=== PATIENT | female | born 1985 | race Caucasian/White ===

== ENCOUNTER → 2018-02-13 20:44 | Outpatient (CLI) | payer BC, SELFPAY | PROVIDERS: Visit Provider Nurse Practitioner Family | DX: J02.9 Acute pharyngitis, unspecified (principal) ==

== ENCOUNTER 2020-05-26 19:48 | Inpatient (IN) | payer OTHER, SELFPAY ==
[2020-05-26 19:58] VITALS: BP 136/86; PULSE 82; RESP 26; TEMP 37.2; O2SAT 100; BMI 26.9
[2020-05-26 20:06] VITALS: BMI 26.9
--- NOTE | 2020-05-26 20:08 | CT_ITS ---
PROCEDURE: CT ABDOMEN PELVIS W CON CLINICAL INDICATION: abd pain Periumbilical pain and vomiting COMPARISON: No exams were available for comparison TECHNIQUE: IV Contrast: 75ML Isovue 370 Oral Contrast None Axial images obtained with sagittal and coronal reformats. All CT scans at the facility use one or more dose reduction, viz: automated exposure control, ma/kV adjustment per patient size (including targeted exams where dose is matched to indication, i.e. head), or iterative reconstruction technique. FINDINGS: LOWER THORAX: No acute finding ABDOMEN & PELVIS: Fatty liver. No focal liver lesion is identified. The gallbladder, spleen, adrenal glands, pancreas, and kidneys have an unremarkable appearance. There is a retro aortic left renal vein as a normal variant. There is an appendicoliths at the base of the appendix with distension of the appendix measuring 9 mm in diameter and minimal haziness of the periappendiceal fat consistent with acute appendicitis. There is a small focus of gas within the tip of the appendix with a small air-fluid level.. No evidence of Genny appendiceal abscess or perforation. Bowel gas pattern is nonspecific with a few scattered small bowel air-fluid levels which could be due to mild ileus. The uterus is anteverted. No obvious pelvic mass or abnormal fluid collection. No acute bony findings. IMPRESSION: 1. The findings are compatible with acute appendicitis. Appendicoliths is present at the base of the appendix. There is a small air-fluid level in the tip of the appendix. 2. No evidence of periappendiceal abscess or free air. 3. Possible small bowel ileus Dictated by: Willie Crespo MD 05/27/2020 06:50 Willie Crespo MD in [place] 05/27/2020 06:50
[2020-05-26 20:09] LABS: Microscopic, Urine URINE MICROSCOPIC (MICROSCOPIC)
[2020-05-26 20:22] LABS: Appearance,Urine CLEAR (Clear); Bilirubin,Urine Negative (Negative); Blood, Urine Negative (Negative); Color,Urine YELLOW (Yellow); Glucose,Urine (UA) Negative (Negative); Ketones,Urine Negative (Negative); Leukocyte Esterase,Urine Negative (Negative); Nitrate,Urine Negative (Negative); Protein,Urine Negative (Negative); Urobilinogen,Urine 0.2 EU/dl (0.2)
--- NOTE | 2020-05-26 20:23 | HMH.EDNVD ---
ED Disposition Clinical Impression: Acute appendicitis Qualifiers: Acute appendicitis type: unspecified acute appendicitis type Qualified Code(s): K35.80 - Unspecified acute appendicitis Disposition: Admitted As Inpatient Condition on Discharge: Good Instructions: DI for Acute Abdominal Pain Referrals: Martínez Alexis MD [Primary Care Provider] - - Critical Care Critical Care Time: No Attestation: On 05/26/20, the high probability of a clinically significant, sudden or life threatening deterioration of the following system(s) required my full and direct attention, intervention and personal management. The time I documented below is in addition to time spent performing reported procedures but includes the following listed in this critical care notation. Medical Decision Making - Medical Records Medical records reviewed: Yes: I reviewed the patient's medical records. - [place] Inquiry Pt receiving controlled substance: No Vital Signs: 05/26/20 19:58 Temperature 99.0 F Temperature Source Oral Pulse Rate [Right] 82 Respiratory Rate 26 H Blood Pressure [Right Arm] 136/86 Blood Pressure Mean [Right Arm] 102 Blood Pressure Source [Right Arm] Automatic Cuff Blood Pressure Position [Right Arm] Supine 02 Sat by Pulse Oximetry 100 Oxygen Delivery Method Room Air - Lab Data Lab results reviewed: Yes: I reviewed the patient's lab results. Lab Results 05/26/20 19:50: Urine Color Yellow, Urine Appearance Clear, Urine pH 8.0, Ur Specific [place] 1.020, Urine Protein Negative, Urine Glucose (UA) Negative, Urine Ketones Negative, Urine Blood Negative, Urine Nitrate Negative, Urine Bilirubin Negative, Urine Urobilinogen 0.2, Ur Leukocyte Esterase Negative, Urine WBC Occasional, Ur Squamous Epith Cells 5-10, Urine Bacteria Trace 05/26/20 19:50: Urine HCG, Qual Negative 05/26/20 20:04: WBC 15.4 H, RBC 4.30, Hgb 14.2, Hct 42.2, MCV 98.0, MCH 32.9 H, MCHC 33.6, RDW 12.6, Plt Count 337, MPV 7.6, Neut % (Auto) 79.8, Lymph % (Auto) 13.7, [place] % (Auto) 5.1, Eos % (Auto) 1.1, Baso % (Auto) 0.3, Neut # (Auto) 12.3 H, Lymph # (Auto) 2.1, [place] # (Auto) 0.8, Eos # (Auto) 0.2, Baso # (Auto) 0.1, Total Counted 100, Neutrophils % (Manual) 80 H, Lymphocytes % (Manual) 19, Monocytes % (Manual) 1 L, Platelet Estimate Normal, RBC Morphology Not Reportable, Stomatocytes 1+, ESR 18 05/26/20 20:04: Sodium 141, Potassium 3.7, Chloride 103, Carbon Dioxide 28, Anion Gap 13.7, BUN 15, Creatinine 0.90, Estimated Creat Clear 95, Estimated GFR 71, Est GFR ( Amer) 86, Glucose 114 H, Calcium 10.1, Total Bilirubin 1.1, AST 65 H, ALT 157 H, Alkaline Phosphatase 71, C-Reactive Protein 4.0, Total Protein 8.3 H, Albumin 5.1 H, Globulin 3.2, Albumin/Globulin Ratio 1.6, Procalcitonin 0.068 05/26/20 20:04: Lactate 1.2 05/26/20 20:04: Amylase 63, Lipase 100 Result diagrams: 05/26/20 20:04 05/26/20 20:04 Orders (Tests/Meds): ED MEDICATIONS Generic Name Dose Route Start Last Admin Trade Name Freq PRN Reason Stop Dose Admin Sodium Chloride 1,000 mls @ 999 mls/hr 05/26/20 20:15 05/26/20 20:11 Sod Chlor 0.9% 1000ml Bag IV 05/26/20 21:15 999 mls/hr .Q1H1M LAM Administration Ampicillin Sodium/Sulbactam 100 mls @ 200 mls/hr 05/26/20 21:30 Sodium 3 gm/ Sodium Chloride IV 06/09/20 21:29 Q8H LAM Protocol Sodium Chloride 8 ml 05/26/20 20:07 Sodium Chloride 0.9% 10ml Vial IV 06/25/20 20:06 NEEDED PRN dilute pepcid Discontinued Medications Generic Name Dose Route Start Last Admin Trade Name Freq PRN Reason Stop Dose Admin Famotidine 20 mg 05/26/20 20:07 05/26/20 20:11 Famotidine 20mg/2ml Vial IV 05/26/20 20:08 20 mg ONCE ONE Administration Hydromorphone HCl 1 mg 05/26/20 20:20 05/26/20 20:26 Hydromorphone 2mg/Ml Syringe IV 05/26/20 20:21 1 mg ONCE ONE Administration Iopamidol 75 ml 05/26/20 21:03 05/26/20 21:09 Iopamidol-370 (76%);100ml Bottle IV 05/26/20 21:04 75 ml ONCE ONE
[2020-05-26 20:27] LABS: Urine Pregnancy, HCG Qual. Negative (Negative)
[2020-05-26 20:28] LABS: Basophils # 0.1 K/mm3 (0-0.2); Basophils % 0.3 % (0.1-2.0); Chloride 103 mmol/L (98-107); Eosinophils # 0.2 K/mm3 (0.0-0.4); Eosinophils % 1.1 % (0.1-12.0); Hematocrit 42.2 % (37.0-47.0); Hemoglobin 14.2 g/dL (12.2-16.2); Lymphocytes # 2.1 K/mm3 (0.7-4.5); Lymphocytes % 13.7 % (10-50); Mean Corpuscular HGB Conc 33.6 g/dL (31.8-35.4); Mean Corpuscular Hemoglobin 32.9 pg (27.0-31.2); Mean Platelet Volume 7.6 fl (7.4-10.4); Monocytes # 0.8 K/mm3 (0.1-1.0); Monocytes % 5.1 % (1.7-9.3); Neutrophils # 12.3 K/mm3 (1.8-7.8); Neutrophils % 79.8 % (37.0-80.0); Platelet Count 337 K/mm3 (142-424); Red Cell Distribution Width 12.6 % (11.5-17.5); White Blood Count 15.4 K/mm3 (4.8-10.8)
[2020-05-26 20:28] LABS: Bacteria,Urine Trace /lpf; WBC,Urine Occasional #/hpf (0-3)
[2020-05-26 20:29] LABS: Potassium 3.7 mmoL/L (3.5-5.1); Sodium 141 mmol/L (136-145)
[2020-05-26 20:30] VITALS: BP 111/66; PULSE 76; O2SAT 94
[2020-05-26 20:31] LABS: Alanine Aminotransferase 157 U/L (12-78); Aspartate Amino Transferase 65 U/L (14-36); Blood Urea Nitrogen 15 mg/dl (7-17); Creatinine Clearance Estimated 95 mL/min (50-200); Estimated Glomerular Filt Rate 71 ml/min (>60); GFR (African American) 86 ML/MIN (>60)
[2020-05-26 20:32] LABS: Albumin Level 5.1 g/dl (3.5-5.0); Albumin/Globulin Ratio 1.6 (1.1-1.8); Alkaline Phosphatase 71 U/L (38-126); Anion Gap 13.7 mEq/L (5-15); Bilirubin,Total 1.1 mg/dl (0.2-1.3); Calcium 10.1 mg/dl (8.4-10.2); Carbon Dioxide 28 mmol/L (22.0-30.0); Globulin 3.2 g/dL (1.3-3.2); Glucose 114 mg/dl (74-100); Lactic Acid 1.2 mmol/L (0.7-2.1); Total Protein,Serum 8.3 g/dl (6.3-8.2)
[2020-05-26 20:33] LABS: MANUAL DIFFERENTIAL MANUAL DIFFERENTIAL (MANUAL DIFF)
[2020-05-26 20:55] LABS: Erythrocyte Sedimentation Rate 18 mm/hr (0-20)
[2020-05-26 20:58] VITALS: BP 115/65; PULSE 70; O2SAT 97
[2020-05-26 21:00] VITALS: BP 108/64; PULSE 65; O2SAT 100
[2020-05-26 21:00] LABS: Procalcitonin 0.068 ng/mL (0.0-2.0)
[2020-05-26 21:02] LABS: Amylase 63 U/L (30-110)
[2020-05-26 21:03] LABS: Lipase 100 U/L (23-300)
[2020-05-26 21:12] LABS: Lymphocytes % 19 % (10-50); Monocytes % 1 % (2-9); Neutrophils % 80 % (42-76); Total Cells Counted 100
[2020-05-26 21:13] LABS: Platelet Estimate Normal; Stomatocytes 1+
--- NOTE | 2020-05-26 21:28 | PC.NURSE ---
Dr Anguiano spoke with Dr Vega for admit
[2020-05-26 22:09] LABS: Coronavirus 19 IgG Antibody Negative (Negative); Coronavirus 19 IgM Antibody Negative (Negative)
[2020-05-27] VITALS (27 sets, daily range): BP systolic 91–138; BP diastolic 50–81; PULSE 48–93; RESP 11–20; TEMP 36.6–42.7; O2SAT 92–100
--- NOTE | 2020-05-27 04:33 | PC.NURSE ---
Pt has slept in intervals this shift, BLT lung sounds CTA, Pt A&O x4, IV infusing NS @100mls/hr, Bowels sounds present in all 4 quadrants, Abdomen tender and firm to the touch. Pt NPO since midnight. Pt medicated for pain per MAR, Pt denies SOA, headache, or vomiting
--- NOTE | 2020-05-27 06:27 | HMH.GSHP ---
HPI HPI: This is a 35-year-old female who presented to the emergency department overnight with increasing abdominal pain. She had radiographic evidence of acute appendicitis and was admitted to the surgical service for evaluation and management. Please see HPI forwarded from emergency department evaluation below. From ED evaluation: Nausea/Vomiting/Diarrhea HPI - General Chief complaint: Abdominal Pain Stated complaint: stomach pain Time Seen by Provider: 05/26/20 20:00 Mode of Arrival: Ambulatory Source of Information: Patient, Medical Record Limitations: No Limitations Description of Symptoms (Recalled from ER Triage Doc. by RN): Pt c/o severe abd burning at the umbilicus, does not get worse with palpation, denied diarrhea, states she did vomit from the pain, pt states she had a normal BM today. Pt took antacids around 1700 this evening with no relief. - History of Present Illness HPI Narrative: progressive abd pain since 1500 with nausea MD complaint: nausea, abdominal pain Onset (ago): hour(s) Associated Abdominal Pain: Yes Location of pain: diffuse Consistency: constant Associated symptoms: denies other symptoms [facility] History Medical History: Denies:: Diabetes Mellitus Type 1, Diabetes Mellitus Type 2 *Have you ever received a pneumonia vaccine?: No *Have you received a flu vaccine this season?: No Other Surgeries: Yes: Other Amputation: No Fractures: No - *Social History Last grade of school completed: Some college Smoking Status: Never smoker Alcohol Intake: never Alcohol Intake Frequency:: holidays/special occasions only Substance Use Type: denies use *Occupational Status:: employed Housing: house Household Members: family *Travel in the last 8 weeks: None Family Hx:: Diabetes Review of Systems - Constitutional Denies chills - Eyes Denies change in vision - ENT Denies change in voice, Denies difficulty swallowing - *Cardiovascular Denies chest pain - *Respiratory Denies cough - *Gastrointestinal Reports abdominal pain, Reports nausea - *Genitourinary Denies blood in urine - *Musculoskeletal Denies abnormal walking - Integumentary/Breasts Denies new lesions - *Neurologic Denies abnormal speech, Denies seizure-like activity - Psychiatric Denies anxiety - Endocrine Denies cold intolerance - Hematologic/Lymphatic Denies easy bleeding - Allergic/Immunologic Denies wheezing Meds Home Medications Medication Instructions Recorded Confirmed Type No Known Home Medications 05/26/20 05/26/20 History Allergies Allergy/AdvReac Type Severity Reaction Status Date / Time No Known Allergies Allergy Verified 08/12/18 11:29 Exam Vital signs and Labs for Last 24 Hours: Temp Pulse Resp BP Pulse Ox 99.6 F 87 18 113/65 97 05/27/20 04:00 05/27/20 04:00 05/27/20 04:00 05/27/20 04:00 05/27/20 04:00 Laboratory Results - last 24 hr 05/26/20 19:50: Urine Color Yellow, Urine Appearance Clear, Urine pH 8.0, Ur Specific [place] 1.020, Urine Protein Negative, Urine Glucose (UA) Negative, Urine Ketones Negative, Urine Blood Negative, Urine Nitrate Negative, Urine Bilirubin Negative, Urine Urobilinogen 0.2, Ur Leukocyte Esterase Negative, Urine WBC Occasional, Ur Squamous Epith Cells 5-10, Urine Bacteria Trace 05/26/20 19:50: Urine HCG, Qual Negative 05/26/20 20:04: WBC 15.4 H, RBC 4.30, Hgb 14.2, Hct 42.2, MCV 98.0, MCH 32.9 H, MCHC 33.6, RDW 12.6, Plt Count 337, MPV 7.6, Neut % (Auto) 79.8, Lymph % (Auto) 13.7, [place] % (Auto) 5.1, Eos % (Auto) 1.1, Baso % (Auto) 0.3, Neut # (Auto) 12.3 H, Lymph # (Auto) 2.1, [place] # (Auto) 0.8, Eos # (Auto) 0.2, Baso # (Auto) 0.1, Total Counted 100, Neutrophils % (Manual) 80 H, Lymphocytes % (Manual) 19, Monocytes % (Manual) 1 L, Platelet Estimate Normal, RBC Morphology Not Reportable, Stomatocytes 1+, ESR 18 05/26/20 20:04: Sodium 141, Potassium 3.7, Chloride 103, Carbon Dioxide 28, Anion Gap 13.7, BUN 15, Creatinine 0.90, Es
--- NOTE | 2020-05-27 06:52 | HMH.ANESCL ---
[facility] Anesthesia Checklist - Patient Identification Patient Identification: Arm Band - Structural Data Admitted From: Inpatient Planned Operative Procedure/s: laparoscopic appendectomy Consent for Planned Operative Procedure(s) Verified: Yes Verified Documents: Surgical Consent, History and Physical - NPO Status Verified Time NPO: 00:00 - Additional verifications Anesthesia Reactions: No - Airway Assessment C-Spine Mobility Assessed: Yes (mp2) TMJ Mobility Assessed: Yes Dentition: Good Dentition - Neurological Assessment Level of Consciousness: Awake, Alert - Anesthesia Plan Anesthesia Risk discussed: Yes Anesthesia Plan: Verified ASA Class: II (e) Anesthesia Type: General [facility] History I have reviewed the patient's past medical history: Yes Medical History: Denies:: Diabetes Mellitus Type 1, Diabetes Mellitus Type 2 *Have you ever received a pneumonia vaccine?: No *Have you received a flu vaccine this season?: No Anesthesia experience/problems:: nac Other Surgeries: Yes: Other Amputation: No Fractures: No - *Social History Last grade of school completed: Some college Smoking Status: Never smoker Alcohol Intake: never Alcohol Intake Frequency:: holidays/special occasions only Substance Use Type: denies use *Occupational Status:: employed Housing: house Household Members: family *Travel in the last 8 weeks: None Family Hx:: Diabetes
[2020-05-27 06:55] LABS: Eosinophils # 0.1 K/mm3 (0.0-0.4); Neutrophils % 82.9 % (37.0-80.0)
[2020-05-27 06:58] LABS: Blood Urea Nitrogen 10 mg/dl (7-17); Carbon Dioxide 25 mmol/L (22.0-30.0); Chloride 107 mmol/L (98-107); Creatinine Clearance Estimated 95 mL/min (50-200); Estimated Glomerular Filt Rate 71 ml/min (>60); GFR (African American) 86 ML/MIN (>60); Glucose 134 mg/dl (74-100); Sodium 138 mmol/L (136-145)
[2020-05-27 07:06] LABS: Calcium 8.8 mg/dl (8.4-10.2)
--- NOTE | 2020-05-27 07:10 | PC.NURSE ---
REPORT RECEIVED FROM Vale ORNELAS RN. PT OFF FLOOR AT THIS TIME FOR SX.
[2020-05-27 07:14] LABS: Basophils % 0.1 % (0.1-2.0); Eosinophils % 0.5 % (0.1-12.0); Hematocrit 37.2 % (37.0-47.0); Lymphocytes # 1.4 K/mm3 (0.7-4.5); Lymphocytes % 10.6 % (10-50); Mean Corpuscular HGB Conc 33.4 g/dL (31.8-35.4); Mean Corpuscular Hemoglobin 33.4 pg (27.0-31.2); Mean Platelet Volume 8.2 fl (7.4-10.4); Monocytes # 0.8 K/mm3 (0.1-1.0); Monocytes % 5.8 % (1.7-9.3); Neutrophils # 10.8 K/mm3 (1.8-7.8); Platelet Count 259 K/mm3 (142-424); Red Blood Count 3.72 M/mm3 (4.20-5.40); Red Cell Distribution Width 12.7 % (11.5-17.5); White Blood Count 13.1 K/mm3 (4.8-10.8)
[2020-05-27 07:15] LABS: Hemoglobin 12.4 g/dL (12.2-16.2)
--- NOTE | 2020-05-27 07:37 | P.CONPHA_ITS ---
[facility] Pharmacy VTE Monitoring - Patient Demographics Admission date: 05/26/20 Report Date: 05/27/20 Time: 07:37 Allergies/Adverse Reactions: Patient Allergies No Known Allergies Allergy (Verified 08/12/18 11:29) Height: 1.6 m Weight: 68.946 kg Patient Problems: Current Active Problems Acute appendicitis (Acute) - VTE Risk Labs: VTE Related Lab Results Hgb 12.4 g/dL (12.2-16.2) D 05/27/20 06:43 Hct 37.2 % (37.0-47.0) 05/27/20 06:43 Plt Count 259 K/mm3 (142-424) 05/27/20 06:43 BUN 10 mg/dl (7-17) D 05/27/20 06:43 Creatinine 0.90 mg/dl (0.52-1.04) 05/27/20 06:43 Estimated Creat Clear 95 mL/min (50-200) 05/27/20 06:43 VTE Score: 0 VTE Risk Level: Very Low Risk - Prophylaxis VTE Prophylaxis Ordered?: Yes Types of VTE Prophylaxis: TEDS Knee High Location of Applied Device: Bilateral Lower Extremeties
--- NOTE | 2020-05-27 08:09 | P.OP_ITS ---
Date of procedure: 05/27/20 Pre-op Diagnosis:: Appendicitis Post-op Diagnosis:: Suppurative appendicitis Procedure performed:: Laparoscopic appendectomy Surgeon:: Darryn Zhao MD Life Science Technical Officer(s):: Edna Anesthesia: GETBandar Estimated blood loss (mL): 10 Operative findings:: Suppurative appendicitis No definitive perforation Operative note:: After informed consent was obtained the patient was taken to the operating room and placed in the supine position. General anesthesia was induced and her abdomen was prepped and draped in a sterile fashion. After infiltration local anesthetic an infraumbilical incision was made. A Veress needle was placed in position. The 12 mm optical trocar was placed in position. Under direct visualization a 5 mm trocar was placed in the suprapubic position and an additional 5 mm trocar was placed in the left lower quadrant. The right lower quadrant was carefully evaluated. The appendix was severely inflamed with significant suppurative changes noted. No obvious perforation was seen. The mesoappendix was taken with harmonic ferdinand as the appendix was elevated. The appendiceal base was then stapled/transected utilizing the Endopath 45 device. Please note that the initial load/device did not fire appropriately and a second device was utilized. No obvious sign of injury or bleeding noted. The staple margin appeared normal. The appendix was placed in a retrieval bag and removed through the infraumbilical trocar site. The right lower quadrant was thoroughly irrigated. No obvious abscess noted. The fascia at the infraumbilical trocar site was reapproximated with a combination of the neoclose device and interrupted 0 Ethibond. All wounds were irrigated as the trocars were removed. Skin was reapproximated with interrupted 4-0 Monocryl. Dressings were applied and the patient was transferred to recovery in stable condition. Condition: stable Disposition: PACU Complications:: No immediate complications. Please note that the initial Endopath 45 device did not fire and a second device was utilized.
--- NOTE | 2020-05-27 08:23 | HMH.ANESI ---
[facility] Anesthesia Record Part I Intake, IV Amount: 500 Estimated blood loss (mL): 50 Urine output (mL): 0 Blood Pressure: 138/73 SaO2: 97 Pulse Rate: 93 Respiratory Rate: 11 Temperature: 98 F Patient is:: Drowsy Stable to PACU at:: 08:19
--- NOTE | 2020-05-27 09:00 | PC.NURSE ---
REPORT RECEIVED FROM [facility]KEON RN [facility]
--- NOTE | 2020-05-27 09:10 | PC.NURSE ---
PT ARRIVED TO ROOM 280 AT THIS TIME.
--- NOTE | 2020-05-27 09:14 | PC.NURSE ---
PT ASSESSED AT THIS TIME. BILATERAL LUNG SOUNDS CLEAR. NO EDEMA NOTED. PT O2 STAT 91% ON RA, 2 L NC APPLIED AT THIS TIME. SPO2 95% NOW. PT AWAKE AND ALERT BUT SLEEPY. PT DENIES ANY PAIN AT THIS TIME JUST STATES THAT IT HURTS TO TAKE A DEEP BREATH. RESPIRATIONS EVEN AND UNLABORED. INCISIONS X3 LAP SITES WITH TELFA/ TEGADERM DRESSING WITH STERI STRIPS, C/D/I NO DRAINAGE NOTED. AT BEDSIDE. CALL LIGHT WITHIN REACH. WILL CONTINUE TO OBSERVE.
--- NOTE | 2020-05-27 13:41 | PC.NURSE ---
dr. rodrigez at bedside checking on pt. pt asleep. no new orders. will continue to observe.
[2020-05-27 13:51] LABS: Microscopic,Cath URINE MICROSCOPIC (MICROSCOPIC)
[2020-05-27 14:01] LABS: Appearance,Urine/Cath CLEAR (Clear); Bilirubin,Cath Negative (Negative); Blood, Urine/Cath Negative (Negative); Color,Urine/Cath YELLOW (Yellow); Glucose,Urine/Cath (UA) Negative (Negative); Ketones,Urine/Cath Negative (Negative); Leukocyte Esterase,Cath Negative (Negative); Nitrate,Cath Negative (Negative); Protein,Urine/Cath Negative (Negative); Specific Gravity, Urine/Cath 1.025 (1.005-1.030); Urobilinogen,Cath 0.2 EU/dl (0.2)
[2020-05-27 14:09] LABS: Squamous Epithelial Ur./Cath Occasional #/hpf (0-5)
--- NOTE | 2020-05-27 16:30 | PC.NURSE ---
PT REASSESSED AT THIS TIME. BILATERAL LUNG SOUNDS CLEAR. NO EDEMA NOTED. PT STATES PAIN 5/10 ON VERBAL SCALE IN ABD WITH MOVEMENT BUT CURRENTLY DENIES WANT FOR PAIN MEDICATION. X3 LAP SITES WITH INCISIONAL DRESSING TELFA/ TEGADERM AND STERI STRIPS C/D/I. IV IN LAC INFUSING WELL. WILL CONTINUE TO OBSERVE.
--- NOTE | 2020-05-27 16:50 | PC.NURSE ---
DR. LUGO AT BEDSIDE. NO NEW ORDERS AT THIS TIME.
--- NOTE | 2020-05-27 18:10 | PC.NURSE ---
PT UP AMBULATING IN ROOM. PT TOLERATING WELL.
--- NOTE | 2020-05-27 19:39 | PC.NURSE ---
REPORT GIVEN TO Vale LOJA RN.
--- NOTE | 2020-05-27 21:16 | PC.NURSE ---
ASSISTED PT UP TO BATHROOM AND SHE VOIDED 300ML CLEAR YELLOW URINE,RETURNED TO BED AND JOSIE RECONNECTED.MEDICATED PT WITH DILAUDID 1MG IVP FOR PAIN OF 9 ON SCALE OF 0-10.PT REPORTED SHE GOT A LITTLE NAUSEATED WITH GOING TO BATHROOM BUT DECLINED ANYTHING FOR NAUSEA
[2020-05-28] VITALS (9 sets, daily range): BP systolic 89–131; BP diastolic 50–81; PULSE 47–85; RESP 17–20; TEMP 36.6–37.1; O2SAT 94–99
--- NOTE | 2020-05-28 01:34 | PC.NURSE ---
UPON ENTERING PT ROOM SHE WAS ASLEEP,EASILY AROUSED.V/S OBTAINED AND WAS 102/58,P-62,R-18,T-98.8,96% RA.ASSISTED PT TO BATHROOM WHERE SHE VOIDED 300ML OF CLEAR YELLOW URINE.PT CRYING IN PAIN.HELPED HER RETURN TO BED,PT DENIES PASSING ANY FLATUS ,ABD.DISTENDED.BOWEL SOUNDS HYPERACTIVE.LUNGS CLEAR,PT ABLE TO ACHIEVE 1250 ML ON INCENTIVE SPIROMETER.MEDICATED WITH DILAUDID 1MG IVP,WILL CONTINUE TO MONITOR
--- NOTE | 2020-05-28 04:06 | PC.NURSE ---
PT HAD BEEN SLEEPING,IV PUMP WOKE HER ,ANOTHER BAG NS HUNG AND HER ZOSYN WAS HUNG.PT REPORTS HER PAIN IS ABOUT A 3 ON SCALE OF 0-10 AND THAT IS WITH MOVEMENT.ABD.NOT DISTENDED BEFORE,BOWEL SOUNDS NORMAL X 4 QUADS,NO DRAINAGE TO 3 LAP SITES.AFIBRILE,WILL CONTINUE TO MONITOR
--- NOTE | 2020-05-28 06:23 | PC.NURSE ---
MEDICATED WITH NORCO 10MG PO FOR PAIN OF 6 ON SCALE OF 0-10.PT ATE SOME VANILLA PUDDING PRIOR TO TAKING MEDICINE.
--- NOTE | 2020-05-28 06:31 | PC.NURSE ---
LAB HERE TO DRAW BLOOD
--- NOTE | 2020-05-28 06:46 | PC.NURSE ---
MAKING AM ROUNDS
[2020-05-28 06:49] LABS: Basophils % 0.1 % (0.1-2.0); Eosinophils # 0.1 K/mm3 (0.0-0.4); Hematocrit 33.7 % (37.0-47.0); Lymphocytes # 2.3 K/mm3 (0.7-4.5); Lymphocytes % 23.6 % (10-50); Mean Corpuscular HGB Conc 32.6 g/dL (31.8-35.4); Mean Corpuscular Hemoglobin 32.9 pg (27.0-31.2); Mean Corpuscular Volume 101.1 fl (81-99); Mean Platelet Volume 9.4 fl (7.4-10.4); Monocytes # 0.6 K/mm3 (0.1-1.0); Monocytes % 5.8 % (1.7-9.3); Neutrophils # 6.7 K/mm3 (1.8-7.8); Neutrophils % 69.5 % (37.0-80.0); Platelet Count 225 K/mm3 (142-424); Red Blood Count 3.33 M/mm3 (4.20-5.40); Red Cell Distribution Width 12.6 % (11.5-17.5); White Blood Count 9.7 K/mm3 (4.8-10.8)
[2020-05-28 06:56] LABS: Anion Gap 8.5 mEq/L (5-15); Blood Urea Nitrogen 4 mg/dl (7-17); Calcium 8.2 mg/dl (8.4-10.2); Carbon Dioxide 25 mmol/L (22.0-30.0); Chloride 108 mmol/L (98-107); Creatinine Clearance Estimated 107 mL/min (50-200); Estimated Glomerular Filt Rate 82 ml/min (>60); GFR (African American) 99 ML/MIN (>60); Glucose 114 mg/dl (74-100); Potassium 3.5 mmoL/L (3.5-5.1); Sodium 138 mmol/L (136-145)
[2020-05-28 06:59] LABS: Hemoglobin 11.1 g/dL (12.2-16.2)
--- NOTE | 2020-05-28 06:59 | P.PN_ITS ---
Subjective Patient reports: still having pain, no bowel movement Progress Note: A&P (1) Suppurative appendicitis Status: Acute Assessment and plan: Overall, doing fairly well status post laparoscopic appendectomy. She continues to have fairly significant pain and states that she just is not moving that well right now . Follow-up morning labs Continue antibiotics secondary to suppurative nature of appendicitis Serial abdominal exams Exam Vital signs and Labs for Last 24 Hours: Temp Pulse Resp BP Pulse Ox 98.1 F 63 18 93/63 L 96 05/28/20 04:00 05/28/20 04:00 05/28/20 04:00 05/28/20 04:00 05/28/20 04:00 Laboratory Results - last 24 hr 05/27/20 06:43: WBC 13.1 H, RBC 3.72 L, Hgb 12.4 D, Hct 37.2, MCV 100.0 H, MCH 33.4 H, MCHC 33.4, RDW 12.7, Plt Count 259, MPV 8.2, Neut % (Auto) 82.9 H, Lymph % (Auto) 10.6, [place] % (Auto) 5.8, Eos % (Auto) 0.5, Baso % (Auto) 0.1, Neut # (Auto) 10.8 H, Lymph # (Auto) 1.4, [place] # (Auto) 0.8, Eos # (Auto) 0.1, Baso # (Auto) 0.0 05/27/20 06:43: Sodium 138, Potassium 4.0, Chloride 107, Carbon Dioxide 25, Anion Gap 10.0, BUN 10 D, Creatinine 0.90, Estimated Creat Clear 95, Estimated GFR 71, Est GFR ( Amer) 86, Glucose 134 H, Calcium 8.8 D 05/27/20 07:10: Urine Color Yellow, Urine Appearance Clear, Urine pH 6.0, Ur Specific [place] 1.025, Urine Protein Negative, Urine Glucose (UA) Negative, Urine Ketones Negative, Urine Blood Negative, Urine Nitrate Negative, Urine Bilirubin Negative, Urine Urobilinogen 0.2, Ur Leukocyte Esterase Negative, Urine RBC None, Urine WBC 3-5, Ur Squamous Epith Cells Occasional, Urine Bacteria None 05/28/20 06:35: WBC 9.7 D, RBC 3.33 L, Hgb 11.1 L D, Hct 33.7 L, MCV 101.1 H, MCH 32.9 H, MCHC 32.6, RDW 12.6, Plt Count 225, MPV 9.4, Neut % (Auto) 69.5, Lymph % (Auto) 23.6, [place] % (Auto) 5.8, Eos % (Auto) 1.0, Baso % (Auto) 0.1, Neut # (Auto) 6.7, Lymph # (Auto) 2.3, [place] # (Auto) 0.6, Eos # (Auto) 0.1, Baso # (Auto) 0.0 05/28/20 06:35: Sodium 138, Potassium 3.5, Chloride 108 H, Carbon Dioxide 25, Anion Gap 8.5, BUN 4 L D, Creatinine 0.80, Estimated Creat Clear 107, Estimated GFR 82, Est GFR ( Amer) 99, Glucose 114 H, Calcium 8.2 L I & O for Last 24 hours: Intake & Output 05/25/20 05/26/20 05/27/20 05/28/20 11:59 11:59 11:59 11:59 Intake Total 1500 / 1500 1220 / 1220 Output Total 1300 / 1300 Balance 1500 / 1500 -80 / -80 Weight 152 lb - Constitutional no acute distress - *Routine Respiratory Exam Absent: respiratory distress - *Routine Cardiovascular Exam Present: RRR - *Routine Abdominal Exam Present: soft
--- NOTE | 2020-05-28 07:07 | PC.NURSE ---
REPORT GIVEN TO KAITLINRN
--- NOTE | 2020-05-28 07:21 | P.PN_ITS ---
[facility] Anesthesia Record Part II Discharge Time: 08:59 Destination: Surgical Day Care (OP Surgery) PACU nurse assessment reviewed?: Yes Patient Condition:: Good Anesthesia Complications:: None Swallowing reflex intact?: Yes Cyanosis?: No Blood Pressure: 131/81 Pulse Rate: 85 Temperature: 98.2 F Mental Status: Alert & Oriented, Short Term Memory Loss Pain level:: 0 Nausea and/or vomitting:: None Intake, IV Amount: 1,000
--- NOTE | 2020-05-28 16:11 | PC.NURSE ---
1605 RN reassessment completed at this time, no acute changes noted from AM assessment. Pt has received PRN pain medication as well as scheduled IV toradol this shift for c/o RUQ pain, with good relief. Pt has dozed at intervals this shift. Abd soft and mildly tender with BS active in all quads, pt reports passing little gas, no BM this shift. Pt reports voiding without difficulty. Lung sounds CTA. 18 G LAC patent and infusing without difficulty. Pt is tolerating full liquid tray well but reports decreased appetite. Warm blanket applied to abdomen for comfort and pillow provided to splint area. Pt lying in bed talking with visitor, no needs voiced. Will continue to monitor.
--- NOTE | 2020-05-28 17:44 | PC.NURSE ---
Pt ambulating in room, tolerating activity well.
[2020-05-29] VITALS (8 sets, daily range): BP systolic 108–144; BP diastolic 61–80; PULSE 40–60; RESP 16–18; TEMP 36.7–37.3; O2SAT 90–100; BMI 30.4
--- NOTE | 2020-05-29 05:38 | PC.NURSE ---
pt has rested fairly well throughout shift, lungs remain clear to auscultate, heart rate regular, dry cough noted, bs x 4 quads, abdomen remains soft but tender, abdominal distention noted, lap site dressings to abdomen remain clean dry and intact, pt is passing flatus, no bm this shift, pt stated she was lightheaded and seeing spots occasionally at beginning of shift at that time heart rate was noted to be 52 with murmur auscultated pt denied chest pain or SOB with that episode of lightheadedness and bp and temperature were stable, light headedness and blurred vision is currently resolved and vss, pain has been managed with prn pain medication and scheduled torodol. pt states she has no appetite and does not want a soft breakfast tray ordered she states she would like to stay on liquid diet at this time, no acute distress noted at this time pt is resting comfortably with eyes closed will continue to monitor at this time
[2020-05-29 06:04] LABS: Basophils % 0.2 % (0.1-2.0); Eosinophils # 0.2 K/mm3 (0.0-0.4); Eosinophils % 2.8 % (0.1-12.0); Hematocrit 34.4 % (37.0-47.0); Hemoglobin 11.1 g/dL (12.2-16.2); Lymphocytes # 2.5 K/mm3 (0.7-4.5); Lymphocytes % 31.2 % (10-50); Mean Corpuscular HGB Conc 32.4 g/dL (31.8-35.4); Mean Platelet Volume 8.5 fl (7.4-10.4); Monocytes # 0.5 K/mm3 (0.1-1.0); Monocytes % 6.2 % (1.7-9.3); Neutrophils # 4.9 K/mm3 (1.8-7.8); Neutrophils % 59.6 % (37.0-80.0); Platelet Count 228 K/mm3 (142-424); Red Blood Count 3.37 M/mm3 (4.20-5.40); Red Cell Distribution Width 12.7 % (11.5-17.5); White Blood Count 8.1 K/mm3 (4.8-10.8)
--- NOTE | 2020-05-29 07:15 | PC.NURSE ---
REPORT RECEIVED FROM Yamil FORD RN
--- NOTE | 2020-05-29 08:00 | PC.NURSE ---
PT ASSESSED AT THIS TIME. BILATERAL LUNG SOUNDS CLEAR. BOWEL SOUNDS PRESENT X4 QUADS. PT STATES SHE HAS PASSED SOME GAS. STATES THAT SHE FEELS A LITTLE LIGHT HEADED BUT COULD BE R/T HER JUST SITTING UP IN THE BED. HEART RATE GILDARDO. X3 LAP SITES C/D/I. PT STATES ABD TENDER. RATES PAIN 7/10 ON VERBAL SCALE AND MEDICATED PER EMAR AT THIS TIME. WILL CONTINUE TO OBSERVE.
--- NOTE | 2020-05-29 08:45 | PC.NURSE ---
DR. LUGO AT BEDSIDE AT THIS TIME. ORDERS TO DECREASE NARCOTIC USE AND ENCOURAGE PT TO AMBULATE OUT IN HALLWAY.
--- NOTE | 2020-05-29 08:53 | P.PN_ITS ---
Subjective Patient reports: still having pain, nausea Progress Note: A&P (1) Suppurative appendicitis Status: Acute Assessment and plan: She remains afebrile. Her white blood cell count is normal. She has no sign of postoperative complication; however, she remains quite nauseous and continues to have fairly significant postoperative pain. Encourage increased ambulation Continue Toradol and minimize narcotics as much as possible Continue Zofran as needed Continue Zosyn for now secondary to suppurative nature of appendicitis Exam Vital signs and Labs for Last 24 Hours: Temp Pulse Resp BP Pulse Ox 98.4 F 58 L 16 111/64 95 05/29/20 07:47 05/29/20 07:47 05/29/20 07:47 05/29/20 07:47 05/29/20 07:47 Laboratory Results - last 24 hr 05/29/20 05:35: WBC 8.1, RBC 3.37 L, Hgb 11.1 L, Hct 34.4 L, MCV 102.0 H, MCH 33.0 H, MCHC 32.4, RDW 12.7, Plt Count 228, MPV 8.5, Neut % (Auto) 59.6, Lymph % (Auto) 31.2, Bradford % (Auto) 6.2, Eos % (Auto) 2.8, Baso % (Auto) 0.2, Neut # (Auto) 4.9, Lymph # (Auto) 2.5, Bradford # (Auto) 0.5, Eos # (Auto) 0.2, Baso # (Auto) 0.0 I & O for Last 24 hours: Intake & Output 05/26/20 05/27/20 05/28/20 05/29/20 11:59 11:59 11:59 11:59 Intake Total 1500 / 1500 2220 / 2220 Output Total 1300 / 1800 1050 / 1050 Balance 1500 / 1500 920 / 420 -1050 / -1050 Weight 152 lb 172 lb 3 oz - Constitutional no acute distress - *Routine Respiratory Exam Present: respiratory distress - *Routine Cardiovascular Exam Present: RRR - *Routine Abdominal Exam Present: soft Comments: Incision(s) clean, dry, and intact. No erythema.
--- NOTE | 2020-05-29 12:03 | PC.NURSE ---
DR. LUGO PAGED AT THIS TIME.
--- NOTE | 2020-05-29 12:06 | PC.NURSE ---
DR. LUGO RETURNED PAGED. ORDERED 12 LEAD EKG
--- NOTE | 2020-05-29 12:23 | ECG_ITS ---
APPROVED REPORT Exam: Resting ECG HR:44 bpm ECG Measurements Heart Rate 44 AXES WV 202 P 40 QRSd 78 QRS 37 QT 444 T 18 QTc 379 Conclusion Marked sinus bradycardia Low voltage QRS Cannot rule out Anteroseptal infarct, age undetermined Abnormal ECG Electronically signed by : Garrett Armando, 05/29/2020 21:04:48
--- NOTE | 2020-05-29 12:38 | PC.NURSE ---
EKG READ BY ER DOC DR. THOMAS STATES SINUS GILDARDO. DR. LUGO OK WITH SINUS GILDARDO.
--- NOTE | 2020-05-29 14:15 | PC.NURSE ---
DR. LUGO CALLED AT THIS TIME AND EXPRESSED CONCERNS ABOUT BRADYCARDIA, DIZZINESS, SWELLING OF HANDS, AND TIBIAL TENDERNESS. STATES FOR CONSULT WITH PCP.
--- NOTE | 2020-05-29 16:00 | PC.NURSE ---
PT IV LEAKING AT THIS TIME. IV ADJUSTED AND RESECURED AT THIS TIME. PT AMBULATING TO BR TO VOID AND WISHES TO AMBULATE OUT IN [place].
--- NOTE | 2020-05-29 16:13 | PC.NURSE ---
PT AMBULATED AROUND UNIT AT THIS TIME WITH STAND BY ASSIST OF RN. HR NOTED TO INCREASE TO 60. PT RESTING IN BED. 2ND FLOOR CALLED AND STATED THAT PT HR HAD BEEN BOUNCING IN 30'S TO 50'S.
--- NOTE | 2020-05-29 16:15 | PC.NURSE ---
dr. solorzano paged at this time.
--- NOTE | 2020-05-29 16:20 | PC.NURSE ---
dr. solorzano returned page at this time. report given orders for labs: TSH, magnesium, and phosphorus. Order for CT of chest to rule out PE. orders repeated and verified at this time. will call back with results.
--- NOTE | 2020-05-29 16:24 | CT_ITS ---
PROCEDURE: CT ANGIO CHEST CLINCIAL INDICATION: rule out PE COMPARISON: No exams were available for comparison TECHNIQUE: IV Contrast: 70ML Isovue 370 Axial images obtained with sagittal and coronal reformats. All CT scans at the facility use one or more dose reduction, viz: automated exposure control, ma/kV adjustment per patient size (including targeted exams where dose is matched to indication, i.e. head), or iterative reconstruction technique. FINDINGS: HEART AND MEDIASTINAL STRUCTURES: Unremarkable. There is excellent vascular opacification. There is no pericardial effusion and there is no evidence of aortic dissection. No pulmonary emboli are identified. LUNGS AND PLEURAL SPACES: Patchy somewhat ill-defined pneumonic infiltrates are seen in both lower lobes primarily posterior basilar segments. There bilateral pleural effusions larger right side than left. Both upper lobes right middle lobe and lingula appear clear. BONY STRUCTURES: No acute bony abnormalities apparent. UPPER ABDOMEN: Unremarkable other than a tiny amount of free air seen at the anterior border of the right lobe of the liver likely from the recent appendectomy. ADDITIONAL FINDINGS: No other significant abnormalities. IMPRESSION: No evidence of pulmonary emboli, bilateral basilar pneumonic infiltrates in bilateral reactive pleural effusions larger right side than left and suggest follow-up films to monitor response to treatment of the pneumonic infiltrates Dictated by: Dr. Singh Purdy MD 05/29/2020 18:52 Dr. Singh Purdy MD in [place] 05/29/2020 18:52
--- NOTE | 2020-05-29 16:33 | PC.NURSE ---
lab at bedside
--- NOTE | 2020-05-29 16:34 | PC.NURSE ---
pt crying stating that it hurts and it is hard to take a deep breath. spo2 94%. o2 @ 2L applied for comfort at this time. pt taking short breaths and blowing out. RN encouraged pt to take steady slow deep breaths. RN remains at bedside.
--- NOTE | 2020-05-29 16:35 | PC.NURSE ---
taken off floor for CT at this time.
--- NOTE | 2020-05-29 16:45 | PC.NURSE ---
dr. solorzano returned page at this time. states he wants to ct scan read jonas and that he will be in here to see pt.
--- NOTE | 2020-05-29 16:51 | PC.NURSE ---
Addendum entered by Jackie Cordero RN 05/29/20 16:55: TIME NOTE OCCURRED AT 1445 Original Note: DR. LUGO PHONED IN ON STATUS OF PT AT THIS TIME AND INQUIRES IF DR. HUTCHISON HAD CALLED ABOUT PT. INFORMED THAT DR HUTCHISON HAS NOT INQUIRED ABOUT PT R/T CONSULT AND ORDERS TELEVISION CAMERA OPERATOR AT THIS TIME WELL 1000 ML BOLUS OF LR AND THEN TO INFUSE LR @125 ML/HR.
[2020-05-29 16:53] LABS: Phosphorous 2.8 mg/dl (2.5-4.5)
--- NOTE | 2020-05-29 17:00 | PC.NURSE ---
PT RETURNED TO ROOM 280 AT THIS TIME.
--- NOTE | 2020-05-29 17:14 | PC.NURSE ---
DR. HUTCHISON AT BEDSIDE
--- NOTE | 2020-05-29 17:32 | HMH.ACPN2 ---
Internal Medicine - PN: Subj *Date: 05/29/20 *Time: 17:32 Interval history: Called by Dr. Zhao and primary RN called me to see patient with bradycardia, shortness of breath and some chest pressure. Pt has a remote history of ASD repair. She states last JOO was done 4 years ago and at that time there was a slight leak around the patch. Patient seemed to begin having bradycardia after hydrocodone was initiated for post op pain. Patient has been given a liter bolus of LR today and IVF's are infusing at 125 mL/hr. Exam Vital signs and Labs for Last 24 Hours: Temp Pulse Resp BP Pulse Ox 98.7 F 44 L 18 144/80 H 100 05/29/20 16:00 05/29/20 16:00 05/29/20 16:00 05/29/20 16:00 05/29/20 16:00 Laboratory Results - last 24 hr 05/29/20 05:35: WBC 8.1, RBC 3.37 L, Hgb 11.1 L, Hct 34.4 L, MCV 102.0 H, MCH 33.0 H, MCHC 32.4, RDW 12.7, Plt Count 228, MPV 8.5, Neut % (Auto) 59.6, Lymph % (Auto) 31.2, [place]gs % (Auto) 6.2, Eos % (Auto) 2.8, Baso % (Auto) 0.2, Neut # (Auto) 4.9, Lymph # (Auto) 2.5, [place]gs # (Auto) 0.5, Eos # (Auto) 0.2, Baso # (Auto) 0.0 05/29/20 16:35: Phosphorus 2.8, Magnesium 2.0, TSH 2.00 Vital Signs - 24 hr 05/28/20 20:00 05/28/20 20:18 05/29/20 00:00 Temperature 97.9 F 98.3 F Pulse Rate [Right Brachial] 47 L 56 L 60 Respiratory Rate 17 16 Blood Pressure [Right Arm] 101/59 L 108/68 L 02 Sat by Pulse Oximetry 98 97 05/29/20 04:00 05/29/20 07:47 05/29/20 08:00 Temperature 98.3 F 98.4 F Pulse Rate [Right Brachial] 57 L 58 L Respiratory Rate 17 16 Blood Pressure [Right Arm] 111/61 111/64 02 Sat by Pulse Oximetry 96 95 95 05/29/20 12:00 05/29/20 16:00 Temperature 98.1 F 98.7 F Pulse Rate [Right Brachial] 44 L 44 L Respiratory Rate 16 18 Blood Pressure [Right Arm] 113/64 144/80 H 02 Sat by Pulse Oximetry 100 100 I & O for Last 24 hours: Intake & Output 05/26/20 05/27/20 05/28/20 05/29/20 23:59 23:59 23:59 23:59 Intake Total 1500 / 1500 2220 / 2220 Output Total 1000 / 1000 1150 / 1150 800 / 800 Balance 500 / 500 1070 / 1070 -800 / -800 Weight 152 lb 172 lb 3 oz - Constitutional no acute distress - *Routine HEENT Exam Head: Present: normocephalic Eye: Present: EOMI, PERRL ENT: Present: mucous membranes moist - *Routine Neck Exam Present: supple. Absent: lymphadenopathy - *Routine Respiratory Exam Present: crackles (bibasilar). Absent: wheezes - *Routine Cardiovascular Exam Present: bradycardia. Absent: murmur - *Routine Abdominal Exam Present: soft, normoactive bowel sounds, tenderness (some herminia incisional) - *Routine Extremities Exam Absent: cyanosis, clubbing, edema - *Routine Skin Exam Present: warm. Absent: rash - *Routine Neurological Exam Present: alert, oriented X3 Assessment and Plan (1) Suppurative appendicitis Status: Acute Category: Medical Code(s): K35.80 - Unspecified acute appendicitis (2) Bradycardia Status: Acute Category: Medical Code(s): R00.1 - Bradycardia, unspecified (3) Respiratory crackles at both lung bases Status: Acute Category: Medical Code(s): R09.89 - Other specified symptoms and signs involving the circulatory and respiratory systems - Assessment and plan all Dx Assessment and Plan for all problems:: Patient seems to have fluid overload. CT of chest ordered to evaluate for PE, will saline lock IVF and give 40 mg of Lasix IV now. Will also give 1 mg of Narcan now as opiate induced bradycardia is a possibility.
--- NOTE | 2020-05-29 17:42 | PC.NURSE ---
PT GIVEN IV NARCAN PER MD ORDER AT THIS TIME. C/O BURNING SENSATION IN CHEST AND NEEDING TO GO TO BR.
--- NOTE | 2020-05-29 19:19 | PC.NURSE ---
REPORT GIVEN TO Vale LOJA RN.
--- NOTE | 2020-05-29 19:45 | PC.NURSE ---
ASSESSMENT DONE ON PT AT THIS TIME.LUNGS DIMINISHED THROUGHTOUT,GENERALIZED EDEMA NOTED,HANDS,ARMS,FACE,LEGS,GOING TO GIVE HER HER LASIX 40MG IV AND HER TORADOL 15MG IV ORDERED.BOWEL SOUNDS HYPOACTIVE,STERI-STRIPS ON 3 LAP SITES ON ABD..PT DENIES PASSING ANY FLATUS,B/P 137/72,HR 45,R-16,T-99.2SAT LEVEL 88 % ON RA.HAD PT TAKE SOME DEEP BREATHES AND IT WENT TO 90%,APPLIED O2 AT 2 LITERS PER NC,PT DENIES ANT SOA,WILL CONTINUE TO MONITOR
--- NOTE | 2020-05-29 20:45 | PC.NURSE ---
CALLED TO CHECK ON PT,TOLD HIM SHE WAS UP TO BATHRROM RIGHT NOW AND SAID SHE WAS FEELING BETTER,TOLD HIM OF HR V/S AND HR BEING 45,LUNGS DIMINISHED,SAT LEVEL WAS 88 AND HAD HER TAKE SOME DEEP BREASTHES AND IT WENT TO 90,APPLIED SOME O2,GENERALIZED EDMEA NPTED IN FACE,HANDS,ARMS AND LEGS.NO NEW ORDERS ,WILL CONTINUE TO MONITOR
--- NOTE | 2020-05-29 22:14 | PC.NURSE ---
LATE ENTRY-2211 OB DEPARTMENT WAS NOTIFIED OF PTS HEART RATE SUSTAINING IN THE 30'S.
--- NOTE | 2020-05-29 22:15 | PC.NURSE ---
FARZAD VIDAL AT THIS TIME,PT DENIES ANY NEEDS OR CONCERNS AT THIS TIME
--- NOTE | 2020-05-29 23:30 | PC.NURSE ---
SECOND FLOOR HAD CALLED TO LET ME KNOW PT HR HAD DROPPED AROUND 35 SO WENT IN TO CHECK ON PT AND SHE WAS SITTING UP IN BED WATCHING T.V.,SAID SHE WAS FEELING FINE,DENIED ANY SOA V/S OBTAINED AND WAS 135/69.HR 37,RESP-16,T-98.8SAT LEVEL 95% ON RA.WILL CALL TO LET HIM KNOW OF HR
--- NOTE | 2020-05-29 23:40 | PC.NURSE ---
FOSTER CALLED BACK TO CHECK ON PT BEFORE I HAD A CHANCE TO CALL HIM,TOLD HIM SHE SAID SHE WAS FEELING BETTER AND THAT HER SWELLING SEEMED TO BE LESS,PT HAS HAD 1800 ML OUTPUT THUS FAR,LUNGS SOUND BETTER,JUST LITTLE DIMINISHED ON RIGHT ,TOLD HIM THAT PT HR HAS BEEN DROPPING TO 35 ON INDUSTRIAL ENGINEERING DIRECTOR AND THAT LAST V/S WAS 135/69.HR-37,T-98.8,RESP-16,SAT LEVEL 95% RA,DENIES ANY SOA.HE SAID HE WAS ALRIGHT WITH THE HR SINCE SHE IS FEELING OK
[2020-05-30] VITALS (18 sets, daily range): BP systolic 110–139; BP diastolic 50–69; PULSE 37–67; RESP 13–18; TEMP 37.1; O2SAT 94–99; BMI 29.7
--- NOTE | 2020-05-30 | IR_ITS ---
APPROVED REPORT Patient Location: [facility] Regulation Enforcement Officer: ANNITA Sellers RT (R) PROCEDURES Right heart catheterization Left heart catheterization Left ventriculogram Selective coronary angiogram INDICATION Abnormal EKG, Hypoxemia, Chest pain, Bradycardia, Acute left-sided congestive heart failure, History of atrial septal defect repair Informed consent was obtained prior to the procedure. TECHNIQUE One percent lidocaine was used to anesthetize the right groin. The right femoral artery was accessed via the Seldinger technique. A 4-Zambian and 7 welsh sheath was placed in the right femoral artery and vein respectfully. A 7 [place]ian sheath was introduced and a [place]-Eddi catheter was floated using hemodynamic waveforms in the pulmonary artery, right ventricle , and right atrium. Saturations were obtained in the pulmonary artery and the right atrium. The JR-4 and JL-4 catheter was also used to perform left heart catheterization, left ventriculography and selective coronary angiogram. At the end of the procedure the patient was transferred to the post-op holding area in stable condition for arterial sheath removal. ANGIOGRAPHIC RESULTS The left main artery Normal The left anterior descending artery Normal The circumflex artery Normal The right coronary artery Dominant normal The DIGGS ventriculogram reveals Preserved at 55% The left ventricular end-diastolic pressure 15 mmHg Right atrial pressure 8 mmHg Right ventricular pressure 28/10 mmHg Pulmonary artery pressure 28/15 mmHg Pulmonary occlusion pressure 12 to 14 mmHg Right atrial saturation 73% Pulmonary artery saturation 71% Femoral artery saturation 91% IMPRESSION Normal coronary arteries Preserved ejection fraction of 55% while on dopamine Mildly elevated left-sided filling pressures with mild pulmonary hypertension Patient is likely experiencing noncardiogenic pleural effusions with VQ mismatch and all secondary to infection from recent infectious appendicitis with appendectomy At this point I see no abnormality with the atrial septal occluder device There is likely some degree of sinus node dysfunction but at this time patient is responding well to low-dose dopamine PLAN 1. Formal echocardiogram today stat 2. Repeat CTA today 3. Gentle diuresis while keeping patient slightly dry secondary to what appears to be noncardiogenic pulmonary edema/effusions 4. Broaden antibiotics 5. Low-dose dopamine for sinus bradycardia 6. Consider low-dose morphine for pain control and anxiolysis Electronically signed by : Joe Haro, 05/30/2020 15:21:39
--- NOTE | 2020-05-30 01:07 | PC.NURSE ---
PT SLEEPING,RESP.EVEN AND UNLABORED,WILL LET HER SLEEP AND GIVE LAM.TORADOL LITTLE LATER CALLED SECOND FLOOR TO SEE HOW THE GEOINT ANALYST WAS DOING WHILE SHE WAS ASLEEP,HR 40.WILL CONTINUE TO MONITOR
--- NOTE | 2020-05-30 05:08 | PC.NURSE ---
PT HAS SLEPT TONIGHT,LUNGS CLEAR AND A LITTLE DIMINISHED ON RIGHT,PT REPORTS HURTS TO TAKE A DEEP BREATH,SAT LEVEL ON RA WAS 89 AFTER WAKING PT AND HAVING HER TAKE SOME DEEP BREATHES IT WAS 94%.BOWEL SOUNDS NORMAL THIS MORNING,NO DRAINAGE TO STERI-STRIP ON THE 3 LAP SITES,PT WENT TO BATHROOM WITH STAND BY ASSIST AND VOIDED 50 FELIPE COLOR URINE.PT DENIES PASSING ANY FLATUUS.GENERALIZED EDEMA STILL PRESENT ,NOT BAD ,PT DECLINED ANY TYLENOL,HAS TAKEN ONLY TORADOL,HR 40,PYTHON PROGRAMMER SHOWS SINUS BRADYCARDIA,WILL CONTINUE TO MONITOR
--- NOTE | 2020-05-30 07:45 | PC.NURSE ---
PT ASLEEP WITH EYES CLOSED. RESPIRATIONS EVEN AND UNLABORED. WILL CONTINUE TO OBSERVE.
--- NOTE | 2020-05-30 07:45 | HMH.GSPN ---
Subjective Patient reports: no new complaints Narrative: Feels about the same . She did develop fairly significant pain that went from the chest down to the legs after her dose of Narcan yesterday. She states that the Narcan did slightly help the dizziness for a little bit . Progress Note: A&P (1) Suppurative appendicitis Status: Acute Assessment and plan: Overall, she remains fairly stable status post laparoscopic appendectomy. No sign of postoperative bleeding or intra-abdominal injury. (2) Bradycardia Status: Acute Assessment and plan: Possibly secondary to persistent/prolonged postanesthesia effects . She does claim to run in the 60s and may be 70s with activity ; therefore, there is certain extent she likely has mild baseline bradycardia. Narcotic-associated bradycardia does remain a possibility; however, she has been without narcotics for over 24 hours and has also received a dose of Narcan. Continue to monitor for symptomatology Appreciate ongoing evaluation/management from primary care Exam Vital signs and Labs for Last 24 Hours: Temp Pulse Resp BP Pulse Ox 98.7 F 40 L 15 131/59 L 94 L 05/30/20 04:00 05/30/20 04:00 05/30/20 04:00 05/30/20 04:00 05/30/20 04:00 Laboratory Results - last 24 hr 05/29/20 16:35: Phosphorus 2.8, Magnesium 2.0, TSH 2.00 I & O for Last 24 hours: Intake & Output 05/27/20 05/28/20 05/29/20 05/30/20 11:59 11:59 11:59 11:59 Intake Total 1500 / 1500 2220 / 2220 955 / 955 Output Total 1300 / 1800 1050 / 1050 2650 / 2650 Balance 1500 / 1500 920 / 420 -1050 / -1050 -1695 / -1695 Weight 152 lb 172 lb 3 oz 167 lb 8 oz - Constitutional no acute distress - *Routine Respiratory Exam Absent: respiratory distress - *Routine Cardiovascular Exam Present: bradycardia - *Routine Abdominal Exam Present: soft
--- NOTE | 2020-05-30 08:00 | PC.NURSE ---
dr. rodrigez at bedside at this time. no new orders, states to let primary see her today and then discuss plans
--- NOTE | 2020-05-30 08:20 | PC.NURSE ---
PT ASSESSED AT THIS TIME. HR NOTED TO STILL BE GILDARDO AT 40 BMP. PT C/O DIZZINESS WHEN SITTING UP AND BLURRED VISION. BILATERAL LUNG SOUNDS DIMINISHED THROUGHOUT. BOWEL SOUNDS NORMOACTIVE X4 QUADS. PT STATES THAT SHE CANNOT SEEM TO TAKE A DEEP BREATH. PT HAS GENERALIZED EDEMA IN HANDS, ARMS, LEGS, AND FEET. INCISION SITES HAVE STERI STRIPS INTACT AND NO DRAINAGE NOTED. SOME BRUISING NOTED AROUND SITES. PT ASSISTED TO BR AND THEN TO CHAIR. STATES DIZZINESS WITH AMBULATION. CALL LIGHT PLACED WITHIN REACH. WILL CONTINUE TO OBSERVE.
--- NOTE | 2020-05-30 08:30 | PC.NURSE ---
dr. solorzano at bedside at this time.
--- NOTE | 2020-05-30 08:45 | PC.NURSE ---
dr. solorzano plans to move pt down to step down with an order for an echo, and a consult to cardiology.
--- NOTE | 2020-05-30 08:50 | PC.NURSE ---
fuel house attendant called and reported current orders.
--- NOTE | 2020-05-30 08:56 | HMH.ACPN2 ---
Internal Medicine - PN: Subj *Date: 05/30/20 *Time: 08:56 Interval history: Patient feels a little better today, urinated a lot oafter Lasix dose, still has trouble taking a deep breath. Nurses report HR was 35 to 45 most all of the night. Narcan did not make a difference in HR. Exam Vital signs and Labs for Last 24 Hours: Temp Pulse Resp BP Pulse Ox 98.8 F 40 L 18 136/56 L 94 L 05/30/20 08:00 05/30/20 08:00 05/30/20 08:00 05/30/20 08:00 05/30/20 08:00 Laboratory Results - last 24 hr 05/29/20 16:35: Phosphorus 2.8, Magnesium 2.0, TSH 2.00 Vital Signs - 24 hr 05/29/20 12:00 05/29/20 16:00 05/29/20 19:45 Temperature 98.1 F 98.7 F Pulse Rate Pulse Rate [Right Brachial] 44 L 44 L Respiratory Rate 16 18 Blood Pressure [Right Arm] 113/64 144/80 H 02 Sat by Pulse Oximetry 100 100 94 L 05/29/20 20:00 05/30/20 00:00 05/30/20 04:00 Temperature 99.2 F 98.8 F 98.7 F Pulse Rate 40 L 40 L 50 L Pulse Rate [Right Brachial] 45 L 37 L 40 L Respiratory Rate 16 16 15 Blood Pressure [Right Arm] 137/72 135/69 131/59 L 02 Sat by Pulse Oximetry 90 L 95 94 L 05/30/20 08:00 Temperature 98.8 F Pulse Rate Pulse Rate [Right Brachial] 40 L Respiratory Rate 18 Blood Pressure [Right Arm] 136/56 L 02 Sat by Pulse Oximetry 94 L I & O for Last 24 hours: Intake & Output 05/27/20 05/28/20 05/29/20 05/30/20 23:59 23:59 23:59 23:59 Intake Total 1500 / 1500 2220 / 2220 50 / 50 905 / 905 Output Total 1000 / 1000 1150 / 1150 2600 / 2600 250 / 250 Balance 500 / 500 1070 / 1070 -2550 / -2550 655 / 655 Weight 172 lb 3 oz 167 lb 8 oz - Constitutional no acute distress - *Routine HEENT Exam Head: Present: normocephalic Eye: Present: EOMI ENT: Present: mucous membranes moist - *Routine Neck Exam Present: supple. Absent: lymphadenopathy - *Routine Respiratory Exam Present: crackles (rare bibasilar). Absent: respiratory distress - *Routine Cardiovascular Exam Present: bradycardia - *Routine Abdominal Exam Present: soft, normoactive bowel sounds, tenderness (only around incisions) - *Routine Extremities Exam Present: edema (trace in the extremities). Absent: cyanosis, clubbing - *Routine Skin Exam Present: warm. Absent: rash - *Routine Neurological Exam Present: alert, oriented X3 Assessment and Plan (1) Suppurative appendicitis Status: Acute Category: Medical Code(s): K35.80 - Unspecified acute appendicitis (2) Bradycardia Status: Acute Category: Medical Code(s): R00.1 - Bradycardia, unspecified (3) Pleural effusion Status: Acute Category: Medical Code(s): J90 - Pleural effusion, not elsewhere classified - Assessment and plan all Dx Assessment and Plan for all problems:: Plan to move patient to step down today and start low dose Dopamine, will order Echo and cardiology consult. Will continue Lasix today. Symptoms more concerning for a cardiomyopathy.
--- NOTE | 2020-05-30 09:09 | CA_ITS ---
APPROVED REPORT EXAM: Comprehensive 2D, Doppler, and color-flow Echocardiogram Sales And Service Consultant: Merly Long CRT Ht: 5 ft 2 in Wt: 167lbs BSA: 1.77 BP: 123/63 mmHg Indications: ASD repair 18 yrs ago, post appy, bradycardia 30's 2D Dimensions LVOT 1.99 cm (M/F) 1.5-2.5 LA Volume 42.70 mL LA Volume Index 24.12 mL/m2 (M/F) 16-34 M-Mode Dimensions RVDd 2.76 cm (0.9-2.6) LA Diam 3.67 cm (1.9-4.0) LVDd 4.16 cm (3.5-5.7) Ao Diam 3.39 cm (2.0-3.7) LVDs 2.33 cm (3.5-5.7) IVSd 0.75 cm (0.6-1.1) PWd 0.72 cm (0.6-1.1) EF (Teich) 75.70% FS 44.00% EDV (Teich) 76.80 mL TAPSE 2.34 (<1.7) ESV (Teich) 18.70 mL LV Diastology E Decel Time 180.00 (160-240 msec) E/A Ratio 1.99 LAT E' 13.40 (<10 cm/sec) LAT A' 12.50 cm/s E/LAT E' Ratio 8.69 (>14) Aortic Valve AO Peak GR. 8.20 mmHg Mitral Valve MV A Velocity 58.00 (40-130 cm/s) E/A Ratio 1.99 MV Decel. Time 180.00 (160-240 ms) Pulmonary Valve PV Peak Velocity 78.00 (50-150 cm/s) Tricuspid Valve TR P. Velocity 139.00 cm/s RAP Estimate 10.00 mmHg RVSP 17.80 mmHg Left Ventricle Left atrium is normal size, left ventricle is normal size, there is no concentric left ventricular hypertrophy, visually estimated ejection fraction 55% with no regional wall motion abnormality, diastolic parameters are within normal range. Right Ventricle Right atrium and right ventricle are upper limit of the normal size and function. Atria There is occluder device noted in the atrial septum, there is no flow across the interatrial septum, agitated saline contrast study fails to identify intracardiac shunt. Aortic Valve Aortic valve is grossly normal, there is no aortic stenosis or aortic insufficiency. Mitral Valve Mitral valve grossly normal, there is trace mitral regurgitation. Tricuspid Valve Tricuspid grossly normal, there is trace tricuspid regurgitation, tricuspid regurgitation jet velocity is inadequate for calculation of the right ventricular systolic pressure. Pulmonic Valve Pulmonic valve is grossly normal, pulmonic outflow velocity is within normal range. There is no significant pulmonic insufficiency seen. Great Vessels Aortic root is normal size. Pericardium No significant pericardial effusion noted. Conclusion 1. Normal left ventricular size, preserved left ventricular systolic function, visually estimated ejection fraction 55 to 60% with no regional wall motion abnormality, diastolic parameters are within normal range. 2. Status post ASD repair with occluder device, device is well-seated, there is no flow across interatrial septum, agitated saline contrast study fails to identify intracardiac shunt. 3. Trace mitral and tricuspid regurgitation, pulmonic outflow velocity within normal range. 4. No significant pericardial effusion noted. Electronically signed by : Tim Cook, 05/30/2020 17:31:11
--- NOTE | 2020-05-30 09:54 | PC.NURSE ---
Report called to Kashmir Sloan RN.
--- NOTE | 2020-05-30 10:00 | PC.NURSE ---
PT WHEELED TO ROOM 219 AT THIS TIME.
--- NOTE | 2020-05-30 10:15 | PC.NURSE ---
Dopamine gtt started @ 2mcg/kg/min. Pt immediately said that she felt more SOA when medication started so I stopped the infusion. She also states that she is nauseated. Zofran 4mg given @ 1020. 2nd PIV (20g) started in left hand. She also has an 18g in LAC. Dopamine gtt restarted @ 1025 without difficulty. Pt is very tearful and anxious. 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 HR continues in the high 30s/low 40s. BP 134/65.
--- NOTE | 2020-05-30 11:10 | HMH.ACPN ---
Internal Medicine - PN: Subj *Date: 05/30/20 *Time: 11:10 Exam Vital signs and Labs for Last 24 Hours: Temp Pulse Resp BP Pulse Ox 98.8 F 40 L 18 136/56 L 94 L 05/30/20 08:00 05/30/20 08:00 05/30/20 08:00 05/30/20 08:00 05/30/20 08:00 Laboratory Results - last 24 hr 05/29/20 16:35: Phosphorus 2.8, Magnesium 2.0, TSH 2.00 I & O for Last 24 hours: Intake & Output 05/27/20 05/28/20 05/29/20 05/30/20 23:59 23:59 23:59 23:59 Intake Total 1500 / 1500 2220 / 2220 50 / 50 905 / 905 Output Total 1000 / 1000 1150 / 1150 2600 / 2600 250 / 250 Balance 500 / 500 1070 / 1070 -2550 / -2550 655 / 655 Weight 78.103 kg 75.977 kg Assessment and Plan (1) Suppurative appendicitis Status: Acute Category: Medical Code(s): K35.80 - Unspecified acute appendicitis (2) Bradycardia Status: Acute Category: Medical Code(s): R00.1 - Bradycardia, unspecified (3) Pleural effusion Status: Acute Category: Medical Code(s): J90 - Pleural effusion, not elsewhere classified The patient's infection will respond to the chosen ABx?: Yes Is the patient receiving the right drug, dose, and route?: Yes Could a more targeted ABx be ordered?: No (WBC WNL, AFEBRILE)
--- NOTE | 2020-05-30 11:15 | PC.NURSE ---
Dopamine gtt increased to 3mcg/kg/min. Sinus devante continues @ 44. Pt has requested that I not increase gtt by more than 1mcg/kg/min. 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 She is fearful that she has a leak around the repair site.
--- NOTE | 2020-05-30 13:01 | PC.NURSE ---
O2 sats hovering around mid 80s on RA. Pt continues to be mildly SOA reporting that she cannot take a deep breath. 2L NC applied. O2 sat increased to low 90s. Pt also having new PVC episodes on tele. HR low 50s on tele.
--- NOTE | 2020-05-30 13:25 | PC.NURSE ---
at aprox 1325, pt having intermittent PVCs and an idioventricular rhythm on tele. Continues to have dyspnea on 2L O2 and intermittent chest tightness. Contacted Dr. Alexis, who ordered a STAT 12 lead EKG. EKG results taken to ED for MD to read. ED MD contacted Dr. Alexis with results, who then contacted Dr. Haro with results. Received call from Dr. Haro @ 1340 who reports that pt is having a STEMI and to call cathlab staff in STAT for heart cath. Notified director housekeeping (Yamil Reyes RN) and discharge rn (Jorje Medellin RN). Pt prepped for heart cath and consent signed. Pt taken down to cath laboratory technician at 1400 with myself, director housekeeping, Morales Enriquez, and Rico Vera. JAMEL (Lul) @ BS and to wait in cath laboratory technician waiting room.
--- NOTE | 2020-05-30 14:00 | PC.NURSE ---
PT TO [employer] VIA STRETCHER AT 1400
[2020-05-30 15:03] LABS: ABG HCO3 25.6 mmhg (22.0-26.0); ABG Oxygen Saturation 92 % (90-100); ABG PCO2 35.7 mmhg (35.0-45.0); ABG PH 7.47 mmol/L (7.35-7.45); ABG PO2 59.6 mmhg (80-100); ABG TCO2 26.7 mmhg (23-27)
[2020-05-30 15:35] LABS: Troponin I 0.03 ng/ml (0.00-0.034)
[2020-05-30 15:53] LABS: CATHL Arterial O2 SAT 71.2 % (90-100); CATHL Venous O2 SAT 73.5 % (75-80)
--- NOTE | 2020-05-30 16:20 | PC.NURSE ---
at aprox [address] from laborer syrup machine by myself, Esther Pino RN, and
--- NOTE | 2020-05-30 16:21 | CT_ITS ---
PROCEDURE: CT ANGIO CHEST CLINCIAL INDICATION: PE protocol COMPARISON: CT CT ANGIO CHEST from 05/29/2020 TECHNIQUE: IV Contrast: 50 ML Isovue 370 Axial images obtained with sagittal and coronal reformats. All CT scans at the facility use one or more dose reduction, viz: automated exposure control, ma/kV adjustment per patient size (including targeted exams where dose is matched to indication, i.e. head), or iterative reconstruction technique. FINDINGS: HEART AND MEDIASTINAL STRUCTURES: There is excellent vascular opacification. Cardiac size is normal. There is no pericardial effusion. There is no evidence of pulmonary emboli. The aorta appears normal. LUNGS AND PLEURAL SPACES: Bilateral basilar infiltrates or atelectasis are again noted the possibly has been some mild clearing of the bilateral infiltrates since yesterday study. Bilateral pleural effusions remain larger right side than left. BONY STRUCTURES: No acute bony abnormalities apparent. UPPER ABDOMEN: There is diffuse fatty infiltration of the liver parenchyma. Liver size is difficult to evaluate as the entire liver is not included on the images but there is suggestion of borderline hepatomegaly. ADDITIONAL FINDINGS: No other significant abnormalities. IMPRESSION: No evidence of pulmonary emboli, persistent bilateral basilar infiltrates and/or atelectasis with possible slight interval improvement from yesterday's study but no significant change in the bilateral pleural effusions. There is prominent diffuse hepatic steatosis Dictated by: Dr. Singh Purdy MD 05/30/2020 19:34 Dr. Singh Purdy MD in [facility] 05/30/2020 19:34
[2020-05-30 16:42] LABS: Chloride 106 mmol/L (98-107); Sodium 143 mmol/L (136-145)
[2020-05-30 16:44] LABS: Microscopic, Urine URINE MICROSCOPIC (MICROSCOPIC)
[2020-05-30 16:45] LABS: Alanine Aminotransferase 82 U/L (12-78); Albumin Level 3.9 g/dl (3.5-5.0); Albumin/Globulin Ratio 1.3 (1.1-1.8); Alkaline Phosphatase 79 U/L (38-126); Anion Gap 11.8 mEq/L (5-15); Aspartate Amino Transferase 60 U/L (14-36); Bilirubin,Total 1.2 mg/dl (0.2-1.3); Blood Urea Nitrogen 3 mg/dl (7-17); Carbon Dioxide 28 mmol/L (22.0-30.0); Creatinine Clearance Estimated 118 mL/min (50-200); Estimated Glomerular Filt Rate 82 ml/min (>60); GFR (African American) 99 ML/MIN (>60); Globulin 2.9 g/dL (1.3-3.2); Potassium 2.8 mmoL/L (3.5-5.1); Total Protein,Serum 6.8 g/dl (6.3-8.2)
[2020-05-30 16:46] LABS: Calcium 8.7 mg/dl (8.4-10.2)
[2020-05-30 16:56] LABS: Glucose 123 mg/dl (74-100)
[2020-05-30 16:59] LABS: Appearance,Urine CLEAR (Clear); Bilirubin,Urine Negative (Negative); Blood, Urine Negative (Negative); Color,Urine YELLOW (Yellow); Glucose,Urine (UA) Negative (Negative); Ketones,Urine Negative (Negative); Leukocyte Esterase,Urine Negative (Negative); Nitrate,Urine Negative (Negative); PH,Urine 7.5 (5.0-8.5); Protein,Urine Negative (Negative); Urobilinogen,Urine 0.2 EU/dl (0.2)
--- NOTE | 2020-05-30 17:01 | PC.NURSE ---
PT BACK FROM [facility]RETCHER @ [id number]
--- NOTE | 2020-05-30 17:12 | PC.NURSE ---
Dr. Alexis notified of K 2.8
--- NOTE | 2020-05-30 17:18 | PC.NURSE ---
received new orders from Dr. Alexis for the following: Potassium 20mEq TID po (give 1st po dose now) and 10mEq IV x 2 doses. Orders faxed to [facility].
[2020-05-30 17:35] LABS: Basophils % 0.3 % (0.1-2.0); Eosinophils # 0.3 K/mm3 (0.0-0.4); Eosinophils % 2.5 % (0.1-12.0); Hematocrit 38.2 % (37.0-47.0); Lymphocytes # 1.8 K/mm3 (0.7-4.5); Lymphocytes % 16.8 % (10-50); Mean Corpuscular HGB Conc 34.1 g/dL (31.8-35.4); Mean Corpuscular Hemoglobin 33.3 pg (27.0-31.2); Mean Corpuscular Volume 97.5 fl (81-99); Mean Platelet Volume 8.1 fl (7.4-10.4); Monocytes # 0.7 K/mm3 (0.1-1.0); Monocytes % 6.3 % (1.7-9.3); Neutrophils # 7.8 K/mm3 (1.8-7.8); Neutrophils % 74.1 % (37.0-80.0); Platelet Count 367 K/mm3 (142-424); Red Blood Count 3.92 M/mm3 (4.20-5.40); Red Cell Distribution Width 12.7 % (11.5-17.5); White Blood Count 10.5 K/mm3 (4.8-10.8)
[2020-05-30 18:42] LABS: Procalcitonin 0.037 ng/mL (0.0-2.0)
--- NOTE | 2020-05-30 20:41 | PC.NURSE ---
She is A&Ox4. Denies pain other than with a deep breathe. She refused scheduled pain medication. She reports dizziness with movement. No edema present. F/c patent and draining clear, straw colored urine. DSG on right groin is C/D/I. Positive radial and pedal pulses. Capillary refill <3. She continues on dopamine with sinus bradycardia noted. SCDS on BLE removed, repositioned, and reapplied. Lung sounds CTA. Normal bowel sounds. She reports having a BM today. She refuses a bath tonight stating that she would like to wait until tomorrow. Blue transfer sheet is still under her at this time. Discussed taking out the transfer sheet and she stated she is comfortable at this time and would like staff know when she is ready for it to be moved. Incentive spirometer available at the bedside. Educated her on use while in bed.
--- NOTE | 2020-05-30 21:41 | PC.NURSE ---
Zosyn and dopamine are compatable. Started to infuse zosyn in dopamine line. Her pulse increased to low 100s for less than 15 seconds but was in the lower 90s. Monitor ready 130 but was not correct. She became anxious. Dopamine was infusing at 1mcg/kg/min. Dopamine has been stopped and antibiotic is currently infusing. She requested that O2 be placed back on. She is deep breathing. Pulse is currently 73. BP 122/50, O2 96% on 2LPM n/c. Continuous Absorption Process Operator has been at bedside since. Lung sounds CTA. NSR on telemetry. Heart sounds with S1,S2 present with murmur. She reported some numbness in her legs. Positive pedal pulses. Capillary refill <3. She has since reported some numbness in her hands. Positive radial pulses with capillary refill <3. Pulse has since decreased to 66.
--- NOTE | 2020-05-30 21:47 | PC.NURSE ---
She reports that at home her pulse in normally in the 60s and 70s. Antibiotic infusion rate decreased too.
--- NOTE | 2020-05-30 21:49 | PC.NURSE ---
She reports that her chest just feels like it is beating. She asked if there are PVCs on the monitor. No PVCs at this time, current pulse is 64.
--- NOTE | 2020-05-30 21:50 | PC.NURSE ---
Late [id number] rate infusion was decreased per her request.
--- NOTE | 2020-05-30 21:55 | PC.NURSE ---
Dr. Alexis paged to inform.
--- NOTE | 2020-05-30 22:38 | PC.NURSE ---
Check on her at this time. She requested to sit up in bed so she could drink some tea. Pulse increased to high 90s low 100s with movement and is now back down to 80.
--- NOTE | 2020-05-30 23:38 | PC.NURSE ---
She ambulated to the bathroom with assistance with the IV pole She did have to stop a couple of times. Reported dizziness when sitting up. Was unable to have a bowel movement.
[2020-05-31] VITALS (8 sets, daily range): BP systolic 102–130; BP diastolic 50–78; PULSE 40–76; RESP 16–18; TEMP 36.7–37.3; O2SAT 90–98; BMI 27.7
--- NOTE | 2020-05-31 03:45 | PC.NURSE ---
She awakened at this time. She reports that she is happy that she was able to sleep some. She reports that her abdomen woke her up. She stated she is unsure if it is gas or if she needs to have a BM. She did not want to go to the bathroom at this time. Bradycardia noted while she was sleeping but NSR (HR 66) when awake. She is sitting up in bed at this time.
--- NOTE | 2020-05-31 05:15 | PC.NURSE ---
She called out a couple times over her IV sites burning from the potassium. Switched IV sites, attempted slowing rate. At this time she refused the rest of her last potassium run. She received 1.5 bags out of 2 of the potassium.
[2020-05-31 07:19] LABS: Basophils % 0.2 % (0.1-2.0); Eosinophils # 0.2 K/mm3 (0.0-0.4); Eosinophils % 2.2 % (0.1-12.0); Lymphocytes # 1.9 K/mm3 (0.7-4.5); Lymphocytes % 21.7 % (10-50); Mean Corpuscular HGB Conc 33.2 g/dL (31.8-35.4); Mean Corpuscular Volume 99.3 fl (81-99); Mean Platelet Volume 7.7 fl (7.4-10.4); Monocytes # 0.5 K/mm3 (0.1-1.0); Neutrophils # 6.2 K/mm3 (1.8-7.8); Neutrophils % 69.9 % (37.0-80.0); Platelet Count 350 K/mm3 (142-424); Red Blood Count 3.92 M/mm3 (4.20-5.40); Red Cell Distribution Width 12.9 % (11.5-17.5); White Blood Count 8.9 K/mm3 (4.8-10.8)
[2020-05-31 07:27] LABS: Anion Gap 11.5 mEq/L (5-15); Blood Urea Nitrogen 4 mg/dl (7-17); Calcium 9.5 mg/dl (8.4-10.2); Carbon Dioxide 30 mmol/L (22.0-30.0); Chloride 103 mmol/L (98-107); Creatinine Clearance Estimated 98 mL/min (50-200); Estimated Glomerular Filt Rate 71 ml/min (>60); GFR (African American) 86 ML/MIN (>60); Glucose 136 mg/dl (74-100); Potassium 3.5 mmoL/L (3.5-5.1); Sodium 141 mmol/L (136-145)
--- NOTE | 2020-05-31 08:27 | HMH.GSPN ---
Subjective Patient reports: feels better Narrative: She states that she feels fairly decent this morning . Her dizziness persist; ever, has improved significantly. She states that she feels pretty good considering the heart cath was yesterday . Progress Note: A&P (1) Suppurative appendicitis Status: Acute Assessment and plan: No sign of intra-abdominal complication. Her white blood cell count remains normal. No left shift noted. Procalcitonin normal. Discontinue Zosyn after this afternoon's dose (2) Bradycardia Status: Acute Assessment and plan: Ongoing evaluation/management as per primary care and cardiology. (3) Pleural effusion Status: Acute Exam Vital signs and Labs for Last 24 Hours: Temp Pulse Resp BP Pulse Ox 99.1 F 45 L 17 128/59 L 96 05/31/20 04:00 05/31/20 06:00 05/31/20 04:00 05/31/20 06:00 05/31/20 06:00 Laboratory Results - last 24 hr 05/30/20 14:35: Urine Color Yellow, Urine Appearance Clear, Urine pH 7.5, Ur Specific Counce 1.020, Urine Protein Negative, Urine Glucose (UA) Negative, Urine Ketones Negative, Urine Blood Negative, Urine Nitrate Negative, Urine Bilirubin Negative, Urine Urobilinogen 0.2, Ur Leukocyte Esterase Negative, Urine RBC None, Urine WBC None, Ur Squamous Epith Cells 5-10, Urine Bacteria None 05/30/20 14:58: Troponin I 0.03 05/30/20 14:58: Sodium 143, Potassium 2.8 L*, Chloride 106, Carbon Dioxide 28, Anion Gap 11.8, BUN 3 L, Creatinine 0.80, Estimated Creat Clear 118, Estimated GFR 82, Est GFR ( Amer) 99, Glucose 123 H, Calcium 8.7, Total Bilirubin 1.2, AST 60 H, ALT 82 H, Alkaline Phosphatase 79, Total Protein 6.8, Albumin 3.9, Globulin 2.9, Albumin/Globulin Ratio 1.3 05/30/20 14:58: Procalcitonin 0.037 05/30/20 15:01: ABG pH 7.47 H, ABG pCO2 35.7, ABG pO2 59.6 L, ABG HCO3 25.6, ABG Total CO2 26.7, ABG O2 Saturation 92, ABG Base Excess 2.0 05/30/20 15:30: ABG O2 Sat (Measured) 71.2 L, POC VBG O2 Sat (Anamika) 73.5 L 05/30/20 17:30: WBC 10.5 D, RBC 3.92 L, Hgb 13.0, Hct 38.2, MCV 97.5, MCH 33.3 H, MCHC 34.1, RDW 12.7, Plt Count 367 D, MPV 8.1, Neut % (Auto) 74.1, Lymph % (Auto) 16.8, [place] % (Auto) 6.3, Eos % (Auto) 2.5, Baso % (Auto) 0.3, Neut # (Auto) 7.8, Lymph # (Auto) 1.8, [place] # (Auto) 0.7, Eos # (Auto) 0.3, Baso # (Auto) 0.0 05/31/20 06:34: WBC 8.9, RBC 3.92 L, Hgb 13.0, Hct 39.0, MCV 99.3 H, MCH 33.0 H, MCHC 33.2, RDW 12.9, Plt Count 350, MPV 7.7, Neut % (Auto) 69.9, Lymph % (Auto) 21.7, [place] % (Auto) 6.0, Eos % (Auto) 2.2, Baso % (Auto) 0.2, Neut # (Auto) 6.2, Lymph # (Auto) 1.9, [place] # (Auto) 0.5, Eos # (Auto) 0.2, Baso # (Auto) 0.0 05/31/20 06:34: Sodium 141, Potassium 3.5 D, Chloride 103, Carbon Dioxide 30, Anion Gap 11.5, BUN 4 L D, Creatinine 0.90, Estimated Creat Clear 98, Estimated GFR 71, Est GFR ( Amer) 86, Glucose 136 H, Calcium 9.5 I & O for Last 24 hours: Intake & Output 05/28/20 05/29/20 05/30/20 05/31/20 11:59 11:59 11:59 11:59 Intake Total 2220 / 2220 955 / 955 341 / 341 Output Total 1300 / 1800 1050 / 1050 2650 / 2650 5100 / 5100 Balance 920 / 420 -1050 / -1050 -1695 / -1695 -4759 / -4759 Weight 172 lb 3 oz 167 lb 8 oz 156 lb 8 oz - Constitutional no acute distress - *Routine Respiratory Exam Absent: respiratory distress - *Routine Cardiovascular Exam Present: bradycardia - *Routine Abdominal Exam Present: soft
--- NOTE | 2020-05-31 08:33 | HMH.ACPN2 ---
<Mara Davis - Last Filed: 05/31/20 08:33> Internal Medicine - PN: Subj *Date: 05/31/20 *Time: 08:33 Interval history: Feeling better this morning. She did sleep some during the night. She drinks fluids for breakfast. She has some slight nausea. She denies chest pain and shortness of breath. She did have a stool this morning. She continues with a Thomas catheter. She has had an excellent urinary output. Nursing notes reviewed. She did receive some of her IV potassium. Potassium is 3.5 this morning. Renal function is normal. Urinalysis is negative. Dopamine drip has been off since 9:30 PM yesterday. She did have a heart cath yesterday due to EKG changes With the following impression and plan: IMPRESSION Normal coronary arteries Preserved ejection fraction of 55% while on dopamine Mildly elevated left-sided filling pressures with mild pulmonary hypertension Patient is likely experiencing noncardiogenic pleural effusions with VQ mismatch and all secondary to infection from recent infectious appendicitis with appendectomy At this point I see no abnormality with the atrial septal occluder device There is likely some degree of sinus node dysfunction but at this time patient is responding well to low-dose dopamine PLAN 1. Formal echocardiogram today stat 2. Repeat CTA today 3. Gentle diuresis while keeping patient slightly dry secondary to what appears to be noncardiogenic pulmonary edema/effusions 4. Broaden antibiotics 5. Low-dose dopamine for sinus bradycardia 6. Consider low-dose morphine for pain control and anxiolysis Exam Vital signs and Labs for Last 24 Hours: Temp Pulse Resp BP Pulse Ox 99.1 F 45 L 17 128/59 L 96 05/31/20 04:00 05/31/20 06:00 05/31/20 04:00 05/31/20 06:00 05/31/20 06:00 Laboratory Results - last 24 hr 05/30/20 14:35: Urine Color Yellow, Urine Appearance Clear, Urine pH 7.5, Ur Specific [place] 1.020, Urine Protein Negative, Urine Glucose (UA) Negative, Urine Ketones Negative, Urine Blood Negative, Urine Nitrate Negative, Urine Bilirubin Negative, Urine Urobilinogen 0.2, Ur Leukocyte Esterase Negative, Urine RBC None, Urine WBC None, Ur Squamous Epith Cells 5-10, Urine Bacteria None 05/30/20 14:58: Troponin I 0.03 05/30/20 14:58: Sodium 143, Potassium 2.8 L*, Chloride 106, Carbon Dioxide 28, Anion Gap 11.8, BUN 3 L, Creatinine 0.80, Estimated Creat Clear 118, Estimated GFR 82, Est GFR ( Amer) 99, Glucose 123 H, Calcium 8.7, Total Bilirubin 1.2, AST 60 H, ALT 82 H, Alkaline Phosphatase 79, Total Protein 6.8, Albumin 3.9, Globulin 2.9, Albumin/Globulin Ratio 1.3 05/30/20 14:58: Procalcitonin 0.037 05/30/20 15:01: ABG pH 7.47 H, ABG pCO2 35.7, ABG pO2 59.6 L, ABG HCO3 25.6, ABG Total CO2 26.7, ABG O2 Saturation 92, ABG Base Excess 2.0 05/30/20 15:30: ABG O2 Sat (Measured) 71.2 L, POC VBG O2 Sat (Anamika) 73.5 L 05/30/20 17:30: WBC 10.5 D, RBC 3.92 L, Hgb 13.0, Hct 38.2, MCV 97.5, MCH 33.3 H, MCHC 34.1, RDW 12.7, Plt Count 367 D, MPV 8.1, Neut % (Auto) 74.1, Lymph % (Auto) 16.8, [place] % (Auto) 6.3, Eos % (Auto) 2.5, Baso % (Auto) 0.3, Neut # (Auto) 7.8, Lymph # (Auto) 1.8, [place] # (Auto) 0.7, Eos # (Auto) 0.3, Baso # (Auto) 0.0 05/31/20 06:34: WBC 8.9, RBC 3.92 L, Hgb 13.0, Hct 39.0, MCV 99.3 H, MCH 33.0 H, MCHC 33.2, RDW 12.9, Plt Count 350, MPV 7.7, Neut % (Auto) 69.9, Lymph % (Auto) 21.7, [place] % (Auto) 6.0, Eos % (Auto) 2.2, Baso % (Auto) 0.2, Neut # (Auto) 6.2, Lymph # (Auto) 1.9, [place] # (Auto) 0.5, Eos # (Auto) 0.2, Baso # (Auto) 0.0 05/31/20 06:34: Sodium 141, Potassium 3.5 D, Chloride 103, Carbon Dioxide 30, Anion Gap 11.5, BUN 4 L D, Creatinine 0.90, Estimated Creat Clear 98, Estimated GFR 71, Est GFR ( Amer) 86, Glucose 136 H, Calcium 9.5 I & O for Last 24 hours: Intake & Output 05/28/20 05/29/20 05/30/20 05/31/20 11:59 11:59 11:59 11:59 Intake Total 2220 / 2220 955 / 955 341 / 341 Output Total 1300 / 1800 1050 / 1050 2650 / 2650 5100 / 5100 Balance 920 / 4
--- NOTE | 2020-05-31 09:17 | HMH.DCSUM ---
General - General Admission date:: 05/27/20 Discharge date: 05/31/20 HPI HPI: This is a 35-year-old female who presented to the emergency department overnight with increasing abdominal pain. She had radiographic evidence of acute appendicitis and was admitted to the surgical service for evaluation and management. Please see HPI forwarded from emergency department evaluation below. From ED evaluation: Nausea/Vomiting/Diarrhea HPI - General Chief complaint: Abdominal Pain Stated complaint: stomach pain Time Seen by Provider: 05/26/20 20:00 Mode of Arrival: Ambulatory Source of Information: Patient, Medical Record Limitations: No Limitations Description of Symptoms (Recalled from ER Triage Doc. by RN): Pt c/o severe abd burning at the umbilicus, does not get worse with palpation, denied diarrhea, states she did vomit from the pain, pt states she had a normal BM today. Pt took antacids around 1700 this evening with no relief. - History of Present Illness HPI Narrative: progressive abd pain since 1500 with nausea MD complaint: nausea, abdominal pain Onset (ago): hour(s) Associated Abdominal Pain: Yes Location of pain: diffuse Consistency: constant Associated symptoms: denies other symptoms Hospital Course Hospital Course: The patient underwent laparoscopic appendectomy. Please see operative report for detail. Secondary to findings of suppurative appendicitis she was maintained on Zosyn. She remained afebrile. She did develop symptomatic bradycardia with heart rates in the 40s and some associated dizziness . She was evaluated by the Primary Care Service in consultation on postoperative day 2. Concerns for possible narcotic-associated bradycardia were discussed with the patient. Narcan was administered; however, no improvement with regard to her bradycardia was noted. Low-dose dopamine was started and the cardiology service was consulted. She was also found to have bilateral pleural effusions with Lasix dosing as per the Primary Care Service. She responded well to Lasix infusion. Hypokalemia was also treated with appropriate response. As stated above, secondary to persistent symptomatic bradycardia (in addition to history of ASD repair) the cardiology service was consulted. She underwent a cardiac catheterization, as well as, a cardiac echo on postoperative day 3. Impressions/conclusions of forwarded below. Cardiac Cath 05/30: IMPRESSION Normal coronary arteries Preserved ejection fraction of 55% while on dopamine Mildly elevated left-sided filling pressures with mild pulmonary hypertension Patient is likely experiencing noncardiogenic pleural effusions with VQ mismatch and all secondary to infection from recent infectious appendicitis with appendectomy At this point I see no abnormality with the atrial septal occluder device There is likely some degree of sinus node dysfunction but at this time patient is responding well to low-dose dopamine Cardiac echo 05/30: Conclusion 1. Normal left ventricular size, preserved left ventricular systolic function, visually estimated ejection fraction of 55 to 60% with no regional wall motion abnormality, diastolic parameters are within normal range. 2. Status post ASD repair with occluder device, device is well-seated, there is no flow across interatrial septum, agitated saline contrast study fails to identify intracardiac shunt. 3. Trace mitral and tricuspid regurgitation, pulmonic outflow velocity within normal range. 4. No significant pericardial effusion noted. CTA Chest 05/02: MPRESSION: No evidence of pulmonary emboli, persistent bilateral basilar infiltrates and/or atelectasis with possible slight interval improvement from yesterday's study but no significant change in the bilateral pleural effusions. There is prominent diffuse hepatic steatosis She was deemed appropriate for discharge on postoperative day 4. At the time of discharge sh
--- NOTE | 2020-05-31 11:14 | HMH.CNCARD ---
History of Present Illness Consult date: 05/31/20 Requesting physician: Martínez Alexis Consult reason: shortness of breath Chief complaint: SOA, chest pain Additional Medical History:: 1. History of atrial septal defect, status post repair approximately age 17 History of present illness: 35-year-old white female admitted to the hospital for acute appendicitis with subsequent laparoscopic appendectomy on 05/27/2020. Yesterday patient was noted to be bradycardic, complaining of chest discomfort and shortness of breath as if she could not catch her breath and did not feel well. Patient was felt to be in congestive heart failure (pleural effusions and infiltrates on CTA without PE) and did respond to IV Lasix, but symptoms persisted combined with an abnormal EKG showing inferior and lateral ST segment abnormalities, hypoxia into the mid 80s despite supplemental oxygen and a bradycardic heart rate in the 40s. Cardiology was consulted and Dr. Haro did see the patient with recommendation for right and left heart catheterization to identify possible cardiac etiologies for her overall condition since he had no lab values (troponins), no access to immediate echocardiography and concern for pulmonary HTN in this patient with history of ASD repair in the remote past. Results of the right and left heart catheterization noted below. She was started on low-dose dopamine for her bradycardia but was weaned off of this later in the evening and is maintaining heart rates in the 40 to 60 bpm range without symptoms. She has been up walking this morning without complications with heart rates in the 70s and 80s and even higher at times. Patient's Thomas catheter has been removed and she has urinated already with plans for discharge home later today. Dr. Haro did come and have a discussion with the patient that she is not a high risk for should she desire to have kids. Echocardiogram results show no evidence of leak related to the atrial septal occluder. Her heart function is essentially normal. ANGIOGRAPHIC RESULTS The left main artery Normal The left anterior descending artery Normal The circumflex artery Normal The right coronary artery Dominant normal The DIGGS ventriculogram reveals Preserved at 55% The left ventricular end-diastolic pressure 15 mmHg Right atrial pressure 8 mmHg Right ventricular pressure 28/10 mmHg Pulmonary artery pressure 28/15 mmHg Pulmonary occlusion pressure 12 to 14 mmHg Right atrial saturation 73% Pulmonary artery saturation 71% Femoral artery saturation 91% IMPRESSION Normal coronary arteries Preserved ejection fraction of 55% while on dopamine Mildly elevated left-sided filling pressures with mild pulmonary hypertension Patient is likely experiencing noncardiogenic pleural effusions with VQ mismatch and all secondary to infection from recent infectious appendicitis with appendectomy At this point I see no abnormality with the atrial septal occluder device There is likely some degree of sinus node dysfunction but at this time patient is responding well to low-dose dopamine PLAN 1. Formal echocardiogram today stat 2. Repeat CTA today 3. Gentle diuresis while keeping patient slightly dry secondary to what appears to be noncardiogenic pulmonary edema/effusions 4. Broaden antibiotics 5. Low-dose dopamine for sinus bradycardia 6. Consider low-dose morphine for pain control and anxiolysis Electronically signed by : Joe Haro, 05/30/2020 15:21:39 Echocardiogram results: 1. Normal left ventricular size, preserved left ventricular systolic function, visually estimated ejection fraction 55 to 60% with no regional wall motion abnormality, diastolic parameters are within normal range. 2. Status post ASD repair with occluder device, device is well-seated, there is no flow across interatrial septum, agitated saline contrast study fails to identify intracardiac shunt. 3. Trace mitral and tricuspid re
== END 2020-05-31 13:49 | disposition home or self-care (01) | DRG 342 ==
LOC: ER 21:30 → OB 22:59 → 2ND 05-30 09:41
PROVIDERS: Internal Medicine; Admitting Provider Surgery; Emergency Provider Emergency Medicine; PCP Family Medicine; Visit Provider Surgery
PROC: 0DTJ4ZZ Resection of Appendix, Percutaneous Endoscopic Approach (ICD-10-PCS; CPT 44950; principal; 2020-05-27 06:20)
PROC: 4A023N8 Measurement of Cardiac Sampling and Pressure, Bilateral, Percutaneous Approach (ICD-10-PCS; principal; 2020-05-30 02:10)
DX: K35.80 Unspecified acute appendicitis (principal); J90 Pleural effusion, not elsewhere classified; R00.1 Bradycardia, unspecified; R07.9 Chest pain, unspecified; R94.31 Abnormal electrocardiogram [ECG] [EKG]; E87.6 Hypokalemia; I27.20 Pulmonary hypertension, unspecified
CPT/HCPCS: 44970; 36415; 71275; 74177; 80048; 80053; 81001; 81025; 82150; 82803; 82810; 83605; 83690; 83735; 84100; 84145; 84443; 84484; 85007; 85025; 85651; 86140; 86328; 88304; 93005; 93306; 93460; 96375; 99152; 99153; 99284; C1725; C1769; J0131; J0330; J1644; J2310; J2405; J2543; Q9967; U0003

== ENCOUNTER 2020-06-02 14:55 | Emergency (ER) | payer OTHER, SELFPAY ==
[2020-06-02 15:06] VITALS: BP 136/52; PULSE 88; RESP 20; TEMP 36.8; O2SAT 98; BMI 26.9
--- NOTE | 2020-06-02 15:08 | HMH.EDUTC ---
[facility] [place] Disposition Clinical Impression: Thrush of mouth and esophagus Pharyngitis Qualifiers: Pharyngitis/tonsillitis etiology: unspecified etiology Qualified Code(s): J02.9 - Acute pharyngitis, unspecified Disposition: Home, Self-Care Condition on Discharge: Good Instructions: DI for Thrush, Thrush-Adult Additional Instructions: Drink plenty of fluids. Take tylenol or ibuprofen for pain or fever. Take the medications as directed. Follow up with your regular doctor. GO TO THE ER FOR ANY WORSENING SYMPTOMS Prescriptions: lidocaine HCL [Lidocaine viscous 100mL bottle] 5 ml PO Q6HP PRN #100 ml PRN Reason: Mouth Irritation Transmission Status: Received by [facility] Fluconazole [Diflucan 150mg tab] 150 mg PO ONCE #1 tab Transmission Status: Received by [facility] Nystatin [Nystatin Susp 500,000 Units/5mL Udc] 5 ml PO QID 7 Days #240 ml Transmission Status: Received by [facility] Referrals: Martínez Alexis MD [Primary Care Provider] - Time of Disposition: 15:40 Medical Decision Making - Medical Records Medical records reviewed: No: I reviewed the patient's medical records. - Parker Inquiry Pt receiving controlled substance: No Vital Signs: 06/02/20 15:06 06/02/20 15:47 Temperature 98.2 F 98.6 F Temperature Source Oral Oral Pulse Rate 87 Pulse Rate [Right] 88 Respiratory Rate 20 16 Blood Pressure 130/60 Blood Pressure [Right Arm] 136/52 L Blood Pressure Mean [Right Arm] 80 Blood Pressure Source Automatic Cuff Blood Pressure Source [Right Arm] Automatic Cuff Blood Pressure Position Sitting Blood Pressure Position [Right Arm] Sitting 02 Sat by Pulse Oximetry 98 Oxygen Delivery Method Room Air Room Air - Lab Data Lab results reviewed: Yes: I reviewed the patient's lab results. Lab Results 06/02/20 15:06: Strep Scn Rapid Clinic Negative Orders (Tests/Meds): ORDERS Category Date Time Status Strep Screen Confirmation Stat Micro 06/02/20 15:06 Received [facility] [place] HPI - General Stated complaint: sore throat, Time Seen by Provider: 06/02/20 15:09 - History of Present Illness Provider Complaint: She c/o sore throat for the past 2 days. She had appendectomy surgery last week. She has been on multiple antibiotics until yesterday. - Related Data Previous Rx's Medication Instructions Recorded Fluconazole [Diflucan 150mg tab] 150 mg PO ONCE #1 tab 06/02/20 Nystatin [Nystatin Susp 500,000 5 ml PO QID 7 Days #240 ml 06/02/20 Units/5mL Udc] lidocaine HCL [Lidocaine viscous 5 ml PO Q6HP PRN #100 ml 06/02/20 100mL bottle] Allergies Allergy/AdvReac Type Severity Reaction Status Date / Time No Known Allergies Allergy Verified 08/12/18 11:29 [facility] History - Hepatitis A Screen Attestation statement:: This patient has been screened for Hepatitis A risk factors. I have reviewed the patient's past medical history: Yes Medical History: Denies:: Diabetes Mellitus Type 1, Diabetes Mellitus Type 2 Comment: atrial defect Other Surgeries: Yes: Other Amputation: No Fractures: No Comment: atrial defect repair--2003 - Social History Smoking Status: Never smoker Alcohol Intake: never Alcohol Intake Frequency:: holidays/special occasions only Substance Use Type: denies use Occupational Status: employed Housing: house Household Members: family Family Hx:: Diabetes ROS Obtained: Yes All systems reviewed & no additional complaints - Constitutional Constitutional: Reports chills, Reports fever(s), Reports poor appetite, Reports malaise - Eyes Eyes: Denies eye discharge - ENT Ears, Nose, Mouth, and Throat: Reports as per HPI - Cardiovascular Cardiovascular: Denies chest pain - Respiratory Respiratory: Denies chest congestion, Reports cough Physical Exam - General General appearance: alert, in no apparent distress - Head Head exam: atraumatic, normocephalic, normal inspection - Eye Eye exam: Present: no
[2020-06-02 15:13] LABS: UTC Strep Screen (Rapid) Negative (Negative)
[2020-06-02 15:47] VITALS: BP 130/60; PULSE 87; RESP 16; TEMP 37; O2SAT 98
== END 2020-06-02 15:47 | disposition home or self-care (01) ==
PROVIDERS: Emergency Provider Nurse Practitioner Family; PCP Family Medicine
DX: B37.81 Candidal esophagitis (principal); J02.9 Acute pharyngitis, unspecified
CPT/HCPCS: 87880; 99202; G0463

== ENCOUNTER → 2020-06-07 10:34 | Outpatient (CLI) | payer OTHER, SELFPAY ==
[2020-06-07 11:23] LABS: Chloride 105 mmol/L (98-107); Sodium 140 mmol/L (136-145)
[2020-06-07 11:24] LABS: Potassium 5.1 mmoL/L (3.5-5.1)
[2020-06-07 11:27] LABS: Anion Gap 11.1 mEq/L (5-15); Blood Urea Nitrogen 12 mg/dl (7-17); Calcium 10.4 mg/dl (8.4-10.2); Carbon Dioxide 29 mmol/L (22.0-30.0); Estimated Glomerular Filt Rate 95 ml/min (>60); GFR (African American) 115 ML/MIN (>60); Glucose 108 mg/dl (74-100)
== END ==
PROVIDERS: Visit Provider Family Medicine
DX: E87.6 Hypokalemia (principal)
CPT/HCPCS: 36415; 80048

== ENCOUNTER → 2020-06-08 10:11 | Outpatient (CLI) | payer OTHER, SELFPAY ==
--- NOTE | 2020-06-08 10:13 | XR_ITS ---
PROCEDURE: XR CHEST 2V CLINICAL HISTORY: dyspnea COMPARISON: CT CT ANGIO CHEST from 05/30/2020 FINDINGS: Implantable cardiac device noted between the right left atrium as seen on recent CT scan. Normal heart size. Lungs are clear . No acute bony findings IMPRESSION: No acute findings. Dictated by: Willie Crespo MD 06/08/2020 12:48 Willie Crespo MD in [place] 06/08/2020 12:48
== END ==
PROVIDERS: PCP Family Medicine; Visit Provider Internal Medicine
DX: R06.00 Dyspnea, unspecified (principal); J90 Pleural effusion, not elsewhere classified
CPT/HCPCS: 71046

== ENCOUNTER → 2020-06-15 09:30 | Outpatient (CLI) | payer OTHER, SELFPAY ==
--- NOTE | 2020-06-15 09:30 | CA_ITS ---
APPROVED REPORT EXAM: Comprehensive 2D, Doppler, and color-flow Echocardiogram Instrumentation Engineering Technician: Merly Long CRT Ht: 5 ft 3 in Wt: 154lbs BSA: 1.73 BP: 124/59 mmHg Indications: EF check post gall bladder surgery M-Mode Dimensions RVDd 3.02 cm (0.9-2.6) LVDd 4.53 cm (3.5-5.7) LVDs 3.02 cm (3.5-5.7) IVSd 0.64 cm (0.6-1.1) PWd 0.62 cm (0.6-1.1) EF (Teich) 62.10% FS 33.30% EDV (Teich) 93.90 mL ESV (Teich) 35.60 mL Left Ventricle A limited transthoracic echocardiogram was performed to evaluate left ventricular systolic function. Left ventricle is normal size, visually estimated ejection fraction 55% with no regional wall motion abnormality, there is no Doppler performed. Right Ventricle Right atrium and right ventricle are normal size and contractility. Aortic Valve Aortic valve is not well-visualized. Mitral Valve Mitral valve is grossly normal. Tricuspid Valve Tricuspid valve grossly normal. Pulmonic Valve Pulmonic valve is not well visualized Great Vessels Aortic root is normal size. Pericardium No significant pericardial effusion noted. Conclusion 1. Limited echocardiogram was performed to evaluate left ventricular systolic function, visually estimated ejection fraction 55% with no regional wall motion abnormality. 2. No significant pericardial effusion noted. Electronically signed by : Tim Cook, 06/15/2020 21:15:05
== END ==
PROVIDERS: PCP Family Medicine; Visit Provider Physician Assistant
DX: R06.00 Dyspnea, unspecified (principal); J90 Pleural effusion, not elsewhere classified
CPT/HCPCS: 93308

== ENCOUNTER 2021-02-20 14:39 | Emergency (ER) | payer OTHER, SELFPAY ==
[2021-02-20 14:39] VITALS: BP 142/75; PULSE 60; RESP 16; TEMP 36.9; O2SAT 98; BMI 26.5
--- NOTE | 2021-02-20 14:58 | HMH.EDGENADL ---
ED Disposition Clinical Impression: Vomiting and diarrhea Abdominal pain Qualifiers: Abdominal location: generalized Qualified Code(s): R10.84 - Generalized abdominal pain Disposition: Home, Self-Care Condition on Discharge: Good Instructions: DI for Acute Abdominal Pain, DI for Vomiting -- Adult, DI for Diarrhea and Traveler's Diarrhea -- Adult Additional Instructions: Ibuprofen for pain. Imodium for diarrhea. Zofran as needed for nausea. Call your primary care doctor tomorrow to arrange follow-up. Additional instructions for VOMITING/DIARRHEA: See your physician as soon as possible for further evaluation. Return immediately if severe abdominal pain, uncontrollable vomiting, shortness of breath, fever, vomiting of blood or abdominal distention. Prescriptions: Ondansetron [Zofran 4mg ODT] 4 mg PO TIDP PRN #10 tab PRN Reason: Nausea And Vomiting Transmission Status: Pending to [id number] Referrals: Martínez Alexis MD [Primary Care Provider] - - Critical Care Critical Care Time: No Attestation: On 02/20/21, the high probability of a clinically significant, sudden or life threatening deterioration of the following system(s) required my full and direct attention, intervention and personal management. The time I documented below is in addition to time spent performing reported procedures but includes the following listed in this critical care notation. Medical Decision Making - Medical Records Medical records reviewed: Yes: I reviewed the patient's medical records. MR Comment: Reviewed CT scan abdomen and pelvis report from 05/27/2020 that showed acute appendicitis. At that time gallbladder was reported as normal. - Parker Inquiry Pt receiving controlled substance: No Vital Signs: 02/20/21 14:39 Temperature 98.5 F Temperature Source Oral Pulse Rate [Radial] 60 Respiratory Rate 16 Blood Pressure [Right Arm] 142/75 H Blood Pressure Mean [Right Arm] 97 Blood Pressure Position [Right Arm] Sitting 02 Sat by Pulse Oximetry 98 Oxygen Delivery Method Room Air - Lab Data Lab Results 02/20/21 14:15: Urine Color Yellow, Urine Appearance Clear, Urine pH 6.0, Ur Specific [place] 1.020, Urine Protein Negative, Urine Glucose (UA) Negative, Urine Ketones Negative, Urine Blood Negative, Urine Nitrate Negative, Urine Bilirubin Negative, Urine Urobilinogen 0.2, Ur Leukocyte Esterase Negative, Urine RBC None, Urine WBC None, Ur Squamous Epith Cells None, Urine Bacteria None 02/20/21 14:15: Urine HCG, Qual Negative 02/20/21 15:04: WBC 9.1, RBC 4.38, Hgb 14.6, Hct 44.3, MCV 101.2 H, MCH 33.4 H, MCHC 33.0, RDW 12.9, Plt Count 466 H, MPV 7.9, Neut % (Auto) 65.4, Lymph % (Auto) 28.3, [place] % (Auto) 3.9, Eos % (Auto) 1.8, Baso % (Auto) 0.6, Neut # (Auto) 5.9, Lymph # (Auto) 2.6, [place] # (Auto) 0.4, Eos # (Auto) 0.2, Baso # (Auto) 0.1 02/20/21 15:04: Sodium 139, Potassium 3.9, Chloride 101, Carbon Dioxide 28, Anion Gap 13.9, BUN 4 L, Creatinine 0.70, Estimated Creat Clear 119, Estimated GFR 95, Est GFR ( Amer) 115, Glucose 129 H, Calcium 9.3, Total Bilirubin 0.8, AST 37 H, ALT 46, Alkaline Phosphatase 57, Total Protein 7.9, Albumin 4.7, Globulin 3.2, Albumin/Globulin Ratio 1.5, Amylase 66 02/20/21 15:04: Lipase 75 Result diagrams: 02/20/21 15:04 02/20/21 15:04 Orders (Tests/Meds): ED MEDICATIONS Discontinued Medications Generic Name Dose Route Start Last Admin Trade Name Freq PRN Reason Stop Dose Admin Iopamidol 75 ml 02/20/21 16:18 02/20/21 16:19 Iopamidol-370 (76%);100ml Bottle IV 02/20/21 16:19 75 ml ONCE ONE Administration Ketorolac Tromethamine 30 mg 02/20/21 16:47 02/20/21 16:55 Ketorolac 30mg/Ml Vial IV 02/20/21 16:48 30 mg ONCE ONE Administration Ondansetron HCl 4 mg 02/20/21 16:47 02/20/21 16:55 Ondansetron 4mg/2ml Vial IV 02/20/21 16:48 4 mg ONCE ONE Administration Sodium Chloride 10 ml 02/20/21 16:18 02/20/21 16:19 Sodium Chloride 0.9% 10ml S
[2021-02-20 15:01] LABS: Microscopic, Urine URINE MICROSCOPIC (MICROSCOPIC)
--- NOTE | 2021-02-20 15:09 | CT_ITS ---
PROCEDURE INFORMATION: Exam: CT Abdomen And Pelvis With Contrast Exam date and time: 02/20/2021 3:09 PM Age: 36 years old Clinical indication: Abdominal pain; Flank; Right upper quadrant (ruq); Additional info: Abdo pain, right flank pain TECHNIQUE: Imaging protocol: Computed tomography of the abdomen and pelvis with contrast. Radiation optimization: All CT scans at this facility use at least one of these dose optimization techniques: automated exposure control; mA and/or kV adjustment per patient size (includes targeted exams where dose is matched to clinical indication); or iterative reconstruction. Contrast material: ISOVUE; Contrast volume: 75 ml; Contrast route: IV; COMPARISON: CT ABDOMEN PELVIS W CON 05/26/2020 8:40 PM FINDINGS: Lungs: A 4 mm pulmonary nodule is again seen in the lingula. Liver: Normal. No mass. Gallbladder and bile ducts: Normal. No calcified stones. No ductal dilation. Pancreas: Normal. No ductal dilation. Spleen: Normal. No splenomegaly. Adrenal glands: Normal. No mass. Kidneys and ureters: Normal. No hydronephrosis. Stomach and bowel: Unremarkable. No obstruction. No mucosal thickening. Appendix: No evidence of appendicitis. Intraperitoneal space: Trace free fluid in the cul-de-sac is likely physiologic. Vasculature: Unremarkable. No abdominal aortic aneurysm. Lymph nodes: Mildly prominent retroperitoneal lymph nodes. Urinary bladder: Unremarkable as visualized. Reproductive: A 21 mm hypodensity is seen in the right adnexum is probably physiologic cyst. Bones/joints: Unremarkable. No acute fracture. Soft tissues: Unremarkable. IMPRESSION: No acute pathology
[2021-02-20 15:30] VITALS: BP 132/78; PULSE 88
[2021-02-20 15:33] LABS: Chloride 101 mmol/L (98-107); Potassium 3.9 mmoL/L (3.5-5.1); Sodium 139 mmol/L (136-145)
[2021-02-20 15:36] LABS: Alanine Aminotransferase 46 U/L (12-78); Albumin Level 4.7 g/dl (3.5-5.0); Albumin/Globulin Ratio 1.5 (1.1-1.8); Alkaline Phosphatase 57 U/L (38-126); Amylase 66 U/L (30-110); Anion Gap 13.9 mEq/L (5-15); Aspartate Amino Transferase 37 U/L (14-36); Bilirubin,Total 0.8 mg/dl (0.2-1.3); Blood Urea Nitrogen 4 mg/dl (7-17); Calcium 9.3 mg/dl (8.4-10.2); Carbon Dioxide 28 mmol/L (22.0-30.0); Creatinine Clearance Estimated 119 mL/min (50-200); Estimated Glomerular Filt Rate 95 ml/min (>60); GFR (African American) 115 ML/MIN (>60); Globulin 3.2 g/dL (1.3-3.2); Glucose 129 mg/dl (74-100); Total Protein,Serum 7.9 g/dl (6.3-8.2)
[2021-02-20 15:37] LABS: Lipase 75 U/L (23-300)
[2021-02-20 15:50] LABS: Basophils # 0.1 K/mm3 (0-0.2); Basophils % 0.6 % (0.1-2.0); Eosinophils # 0.2 K/mm3 (0.0-0.4); Eosinophils % 1.8 % (0.1-12.0); Hematocrit 44.3 % (37.0-47.0); Hemoglobin 14.6 g/dL (12.2-16.2); Lymphocytes # 2.6 K/mm3 (0.7-4.5); Lymphocytes % 28.3 % (10-50); Mean Corpuscular Hemoglobin 33.4 pg (27.0-31.2); Mean Corpuscular Volume 101.2 fl (81-99); Mean Platelet Volume 7.9 fl (7.4-10.4); Monocytes # 0.4 K/mm3 (0.1-1.0); Monocytes % 3.9 % (1.7-9.3); Neutrophils # 5.9 K/mm3 (1.8-7.8); Neutrophils % 65.4 % (37.0-80.0); Platelet Count 466 K/mm3 (142-424); Red Blood Count 4.38 M/mm3 (4.20-5.40); Red Cell Distribution Width 12.9 % (11.5-17.5); White Blood Count 9.1 K/mm3 (4.8-10.8)
[2021-02-20 16:00] LABS: Appearance,Urine CLEAR (Clear); Bilirubin,Urine Negative (Negative); Blood, Urine Negative (Negative); Color,Urine YELLOW (Yellow); Glucose,Urine (UA) Negative (Negative); Ketones,Urine Negative (Negative); Leukocyte Esterase,Urine Negative (Negative); Nitrate,Urine Negative (Negative); Protein,Urine Negative (Negative); Urine Pregnancy, HCG Qual. Negative (Negative); Urobilinogen,Urine 0.2 EU/dl (0.2)
[2021-02-20 16:30] VITALS: BP 142/78; PULSE 87; RESP 16; O2SAT 97
[2021-02-20 17:30] VITALS: BP 136/75; PULSE 78; RESP 16; O2SAT 98
[2021-02-20 18:02] VITALS: BP 140/88; PULSE 78; RESP 16; TEMP 36.6; O2SAT 98
--- NOTE | 2021-02-20 22:59 | ECG_ITS ---
APPROVED REPORT Exam: Resting ECG HR:76 bpm ECG Measurements Heart Rate 76 AXES NV 172 P 49 QRSd 84 QRS 81 QT 376 T 70 QTc 423 Conclusion Sinus rhythm with premature atrial complexes Otherwise normal ECG Electronically signed by : Garrett Armando MD 02/21/2021 13:24:13
== END 2021-02-20 18:03 | disposition home or self-care (01) ==
PROVIDERS: Emergency Provider Emergency Medicine; PCP Family Medicine
DX: R10.84 Generalized abdominal pain (principal); R11.10 Vomiting, unspecified
CPT/HCPCS: 74177; 80053; 81001; 81025; 82150; 83690; 85025; 93005; 96365; 96375; 99283; J2405; Q9967

== ENCOUNTER 2021-02-20 22:49 | Observation (INO) | payer OTHER, SELFPAY ==
[2021-02-20 22:55] VITALS: BP 126/75; PULSE 62; RESP 24; TEMP 36.7; O2SAT 98; BMI 26.5
--- NOTE | 2021-02-20 23:14 | HMH.EDNVD ---
ED Disposition Clinical Impression: Abdominal pain Qualifiers: Abdominal location: upper abdomen, unspecified Qualified Code(s): R10.10 - Upper abdominal pain, unspecified Disposition: Admitted as Observation Condition on Discharge: Good Instructions: DI for Acute Abdominal Pain Referrals: Martínez Alexis MD [Primary Care Provider] - - Critical Care Critical Care Time: No Attestation: On 02/20/21, the high probability of a clinically significant, sudden or life threatening deterioration of the following system(s) required my full and direct attention, intervention and personal management. The time I documented below is in addition to time spent performing reported procedures but includes the following listed in this critical care notation. Medical Decision Making - Medical Records Medical records reviewed: Yes: I reviewed the patient's medical records. - Parker Inquiry Pt receiving controlled substance: No Vital Signs: 02/20/21 22:55 02/20/21 23:31 02/21/21 00:15 Temperature 98.1 F Temperature Source Oral Pulse Rate 87 64 Pulse Rate [Right Brachial] 62 Respiratory Rate 24 Blood Pressure 116/42 L 89/33 L Blood Pressure [Right Arm] 126/75 Blood Pressure Mean [Right Arm] 92 Blood Pressure Source [Right Arm] Automatic Cuff Blood Pressure Position [Right Arm] Sitting 02 Sat by Pulse Oximetry 98 99 96 Oxygen Delivery Method Room Air Room Air Room Air 02/21/21 00:30 02/21/21 01:00 02/21/21 01:30 Temperature Temperature Source Pulse Rate 63 60 57 L Pulse Rate [Right Brachial] Respiratory Rate Blood Pressure 88/33 L 88/35 L 90/38 L Blood Pressure [Right Arm] Blood Pressure Mean [Right Arm] Blood Pressure Source [Right Arm] Blood Pressure Position [Right Arm] 02 Sat by Pulse Oximetry 97 97 97 Oxygen Delivery Method Room Air Room Air Room Air 02/21/21 01:59 02/21/21 02:30 Temperature Temperature Source Pulse Rate 60 64 Pulse Rate [Right Brachial] Respiratory Rate Blood Pressure 98/49 L 108/51 L Blood Pressure [Right Arm] Blood Pressure Mean [Right Arm] Blood Pressure Source [Right Arm] Blood Pressure Position [Right Arm] 02 Sat by Pulse Oximetry 100 99 Oxygen Delivery Method Room Air Room Air - Lab Data Lab results reviewed: Yes: I reviewed the patient's lab results. Lab Results 02/20/21 22:59: WBC 12.3 H D, RBC 4.32, Hgb 14.5, Hct 43.2, MCV 99.9 H, MCH 33.5 H, MCHC 33.5, RDW 12.8, Plt Count 415, MPV 7.8, Neut % (Auto) 72.9, Lymph % (Auto) 18.7, [place] % (Auto) 6.0, Eos % (Auto) 1.6, Baso % (Auto) 0.8, Neut # (Auto) 8.9 H, Lymph # (Auto) 2.3, [place] # (Auto) 0.7, Eos # (Auto) 0.2, Baso # (Auto) 0.1 02/20/21 22:59: Sodium 139, Potassium 3.5, Chloride 103, Carbon Dioxide 27, Anion Gap 12.5, BUN 6 L D, Creatinine 0.70, Estimated Creat Clear 119, Estimated GFR 95, Est GFR ( Amer) 115, Glucose 128 H, Calcium 9.9, Total Bilirubin 0.6, AST 36, ALT 45, Alkaline Phosphatase 55, Total Protein 7.8, Albumin 4.6, Globulin 3.2, Albumin/Globulin Ratio 1.4, Amylase 70, Lipase 104 Result diagrams: 02/20/21 22:59 02/20/21 22:59 Orders (Tests/Meds): ED MEDICATIONS Generic Name Dose Route Start Last Admin Trade Name Freq PRN Reason Stop Dose Admin Sodium Chloride 1,000 mls @ 999 mls/hr 02/20/21 23:15 02/20/21 23:35 Sod Chlor 0.9% 1000ml Bag IV 02/21/21 00:15 999 mls/hr .Q1H1M LAM Administration Sodium Chloride 1,000 mls @ 999 mls/hr 02/21/21 02:15 02/21/21 02:23 Sod Chlor 0.9% 1000ml Bag IV 02/21/21 03:15 999 mls/hr .Q1H1M LAM Administration Sodium Chloride 1,000 mls @ 999 mls/hr 02/21/21 03:45 02/21/21 03:40 Sod Chlor 0.9% 1000ml Bag IV 02/21/21 04:45 999 mls/hr .Q1H1M LAM Administration Sodium Chloride 8 ml 02/20/21 23:03 Sodium Chloride 0.9% 10ml Vial IV 03/22/21 23:02 NEEDED PRN dilute pepcid Discontinued Medications Generic Name Dose Route Start Last Admin Trade Name Freq [place]
[2021-02-20 23:22] LABS: Basophils # 0.1 K/mm3 (0-0.2); Basophils % 0.8 % (0.1-2.0); Eosinophils # 0.2 K/mm3 (0.0-0.4); Eosinophils % 1.6 % (0.1-12.0); Hematocrit 43.2 % (37.0-47.0); Hemoglobin 14.5 g/dL (12.2-16.2); Lymphocytes # 2.3 K/mm3 (0.7-4.5); Lymphocytes % 18.7 % (10-50); Mean Corpuscular HGB Conc 33.5 g/dL (31.8-35.4); Mean Corpuscular Hemoglobin 33.5 pg (27.0-31.2); Mean Corpuscular Volume 99.9 fl (81-99); Mean Platelet Volume 7.8 fl (7.4-10.4); Monocytes # 0.7 K/mm3 (0.1-1.0); Neutrophils # 8.9 K/mm3 (1.8-7.8); Neutrophils % 72.9 % (37.0-80.0); Platelet Count 415 K/mm3 (142-424); Red Blood Count 4.32 M/mm3 (4.20-5.40); Red Cell Distribution Width 12.8 % (11.5-17.5); White Blood Count 12.3 K/mm3 (4.8-10.8)
[2021-02-20 23:26] LABS: Alanine Aminotransferase 45 U/L (12-78); Albumin Level 4.6 g/dl (3.5-5.0); Albumin/Globulin Ratio 1.4 (1.1-1.8); Alkaline Phosphatase 55 U/L (38-126); Amylase 70 U/L (30-110); Anion Gap 12.5 mEq/L (5-15); Aspartate Amino Transferase 36 U/L (14-36); Bilirubin,Total 0.6 mg/dl (0.2-1.3); Blood Urea Nitrogen 6 mg/dl (7-17); Calcium 9.9 mg/dl (8.4-10.2); Carbon Dioxide 27 mmol/L (22.0-30.0); Chloride 103 mmol/L (98-107); Creatinine Clearance Estimated 119 mL/min (50-200); Estimated Glomerular Filt Rate 95 ml/min (>60); GFR (African American) 115 ML/MIN (>60); Globulin 3.2 g/dL (1.3-3.2); Glucose 128 mg/dl (74-100); Lipase 104 U/L (23-300); Potassium 3.5 mmoL/L (3.5-5.1); Sodium 139 mmol/L (136-145); Total Protein,Serum 7.8 g/dl (6.3-8.2)
[2021-02-20 23:31] VITALS: BP 116/42; PULSE 87; O2SAT 99
--- NOTE | 2021-02-20 23:46 | PC.NURSE ---
pt family updated of 3am ultra sound as well as pt currently resting comfortable
[2021-02-21] VITALS (25 sets, daily range): BP systolic 86–122; BP diastolic 33–64; PULSE 52–88; RESP 13–16; TEMP 36.6–36.9; O2SAT 96–100; BMI 28.6
--- NOTE | 2021-02-21 03:00 | US_ITS ---
PROCEDURE INFORMATION: Exam: US Abdomen, Limited; Right Upper Quadrant Exam date and time: 02/21/2021 3:00 AM Age: 36 years old Clinical indication: Abdominal pain; Localized; Right upper quadrant (ruq); Additional info: Ruq pain encirclling stomach/radiating right flank TECHNIQUE: Imaging protocol: US abdomen. Real time ultrasound with image documentation. Limited exam focused on the right upper quadrant. COMPARISON: CT ABDOMEN PELVIS W CON 02/20/2021 4:13 PM FINDINGS: Liver: Normal. No masses. Cephalocaudal length of the right hepatic lobe is 17.0 cm. Gallbladder: No gallstones. There is no gallbladder wall thickening. Gallbladder wall measures 3 mm in diameter. Common bile duct: No stones. No dilation. The common bile duct measures 4 mm in diameter. Pancreas: Visualized pancreas is unremarkable. Right kidney: The right kidney measures 10.7 x 4.0 x 5.4 cm. No mass. No hydronephrosis. IMPRESSION: Unremarkable examination.
--- NOTE | 2021-02-21 03:58 | PC.NURSE ---
Dr. Supriya reis.
--- NOTE | 2021-02-21 04:02 | PC.NURSE ---
Dr. Anguiano on phone with DR. Cortez
[2021-02-21 04:17] LABS: Coronavirus 19, PCR Not Detected (NotDetected); Influenza A, PCR Not Detected (NotDetected); Influenza B, PCR Not Detected (NotDetected)
--- NOTE | 2021-02-21 08:07 | HMH.PHAVTE ---
[facility] Pharmacy VTE Monitoring - Patient Demographics Admission date: 02/21/21 Report Date: 02/21/21 Time: 08:07 Allergies/Adverse Reactions: Patient Allergies No Known Allergies Allergy (Verified 06/15/20 10:19) Height: 1.6 m Weight: 68.039 kg Patient Problems: Current Active Problems Abdominal pain (Acute) - VTE Risk Labs: VTE Related Lab Results Hgb 14.5 g/dL (12.2-16.2) 02/20/21 22:59 Hct 43.2 % (37.0-47.0) 02/20/21 22:59 Plt Count 415 K/mm3 (142-424) 02/20/21 22:59 BUN 6 mg/dl (7-17) L D 02/20/21 22:59 Creatinine 0.70 mg/dl (0.52-1.04) 02/20/21 22:59 Estimated Creat Clear 119 mL/min (50-200) 02/20/21 22:59 Clinical Trial Participant: No - Prophylaxis VTE Prophylaxis Ordered?: Yes Types of VTE Prophylaxis: TEDS Knee High
--- NOTE | 2021-02-21 08:35 | PC.NURSE ---
CALLED SURGERY CLINIC TO INFORM GENERAL SURGEON OF CONSULT
--- NOTE | 2021-02-21 09:24 | P.PN_ITS ---
Internal Medicine - PN: Subj *Date: 02/21/21 *Time: 09:37 Interval history: Ms. Whaley is a 36yo white female with history significant for migraines and ASD. She relates a 2-day history of epigastric pain which started Sunday morning and was accompanied by some intermittent nausea and several episodes of diarrhea. She was able to eat and drink normally although her pain was increased after eating a piece of cake at a birthday alliance party. Yesterday morning, her epigastric pain and nausea increased and the pain began radiating to her right flank. She presented to the [facility] ED where she had an unremarkable workup including CT abdomen/pelvis with contrast, CBC, CMP, and UA. She had improvement in her symptoms with toradol and zofran and was discharged home with instructions to follow up with surgery today. She reports after resting for a while at home she woke up hungry and was able to eat some chicken noodle soup and grilled cheese, however, shortly after eating she began to again experience burning epigastric pain and nausea. She reports the burning progressed rapidly to severe pain which was radiating to her flanks bilaterally and she had an episode of vomiting. She returned to the ED last night and was found to have mildly elevated WBC of 12.3 with normal right upper quadrant ultrasound. It was felt that she would require admission for further evaluation and management of her symptoms. At this time, she is resting quietly on the ED stretcher. Her pain and nausea are both tolerable. She has had no further emesis or diarrheal stools overnight. Exam Vital signs and Labs for Last 24 Hours: Temp Pulse Resp BP Pulse Ox 98.1 F 68 14 114/62 99 02/20/21 22:55 02/21/21 09:00 02/21/21 09:00 02/21/21 09:00 02/21/21 09:00 Laboratory Results - last 24 hr 02/20/21 22:59: WBC 12.3 H D, RBC 4.32, Hgb 14.5, Hct 43.2, MCV 99.9 H, MCH 33.5 H, MCHC 33.5, RDW 12.8, Plt Count 415, MPV 7.8, Neut % (Auto) 72.9, Lymph % (Auto) 18.7, [place] % (Auto) 6.0, Eos % (Auto) 1.6, Baso % (Auto) 0.8, Neut # (Auto) 8.9 H, Lymph # (Auto) 2.3, [place] # (Auto) 0.7, Eos # (Auto) 0.2, Baso # (Auto) 0.1 02/20/21 22:59: Sodium 139, Potassium 3.5, Chloride 103, Carbon Dioxide 27, Anion Gap 12.5, BUN 6 L D, Creatinine 0.70, Estimated Creat Clear 119, Estimated GFR 95, Est GFR ( Amer) 115, Glucose 128 H, Calcium 9.9, Total Bilirubin 0.6, AST 36, ALT 45, Alkaline Phosphatase 55, Total Protein 7.8, Albumin 4.6, Globulin 3.2, Albumin/Globulin Ratio 1.4, Amylase 70, Lipase 104 02/21/21 04:10: SARS-CoV-2 (PCR) Not detected, Influenza A Untype (PCR) Not detected, Influenza Type B (PCR) Not detected I & O for Last 24 hours: Intake & Output 02/18/21 02/19/21 02/20/21 02/21/21 11:59 11:59 11:59 11:59 Weight 150 lb
--- NOTE | 2021-02-21 10:13 | PC.NURSE ---
REPORT CALLED TO FLOOR
--- NOTE | 2021-02-21 10:17 | HMH.HP ---
*Admission Date: 02/21/21 *Chief complaint: Abdominal pain *History of present illness: Ms. Whaley is a 36yo WF with history significant for migraine and ASD. She relates a 2-day history of epigastric pain which started Sunday morning and was accompanied by some intermittent nausea and several episodes of diarrhea. She was able to eat and drink normally although her pain was increased after eating a piece of cake at a birthday libertarian. Yesterday morning, her epigastric pain and nausea increased and the pain began radiating to her right flank. She presented to the [facility] ED where she had an unremarkable workup including CT abdomen/pelvis with contrast, CBC, CMP, and UA. She had improvement in her symptoms with toradol and zofran and was discharged home with instructions to follow up with surgery today. She reports after resting for a while at home yesterday she woke up hungry and was able to eat some chicken noodle soup and grilled cheese, however, shortly after eating she began to again experience burning epigastric pain and nausea. She reports the burning progressed rapidly to severe pain which was radiating to her flanks bilaterally and she had an episode of vomiting. She returned to the ED last night and was found to have a mildly elevated WBC of 12.3 with normal right upper quadrant ultrasound. It was felt she would need admission for further evaluation and management of her symptoms. At this time, she is resting quietly on the ED stretcher. Her pain and nausea are both tolerable. She has had no further emesis or diarrheal stools overnight. [facility] History Medical History: Denies:: Diabetes Mellitus Type 1, Diabetes Mellitus Type 2 *Have you ever received a pneumonia vaccine?: Yes *Have you received a flu vaccine this season?: Yes Other Surgeries: Yes: Appendectomy, Cardiac Surgery, Other Amputation: No Fractures: No - *Social History Smoking Status: Never smoker Alcohol Intake: never Alcohol Intake Frequency:: holidays/special occasions only Substance Use Type: denies use *Occupational Status:: employed Housing: house Household Members: family *Travel in the last 8 weeks: Inside the [place] Family Hx:: Diabetes, Coronary Artery Disease, Heart Attack Review of Systems - Constitutional Reports excessive sweating, Denies body ache(s), Denies chills, Denies fatigue, Denies fever(s), Denies headache(s) - Eyes Denies change in vision - ENT Denies headache(s), Denies nasal congestion, Denies sore throat - *Cardiovascular Denies chest pain, Denies chest pain with activity, Denies shortness of breath, Denies generalized swelling - *Respiratory Denies chest congestion, Denies cough, Denies shortness of breath - *Gastrointestinal Reports abdominal pain, Reports loose stools, Reports heartburn, Reports nausea, Reports vomiting - *Genitourinary Denies difficulty urinating - *Neurologic Denies unsteadiness, Denies seizure-like activity - Endocrine Reports flushing - Hematologic/Lymphatic Denies enlarged lymph nodes Meds Home Medications Medication Instructions Recorded Confirmed Type Ondansetron [Zofran 4mg ODT] 4 mg PO TIDP PRN #10 tab 02/20/21 02/20/21 Rx Allergies Allergy/AdvReac Type Severity Reaction Status Date / Time No Known Allergies Allergy Verified 06/15/20 10:19 Exam Vital signs and Labs for Last 24 Hours: Temp Pulse Resp BP Pulse Ox 98.1 F 68 14 114/62 99 02/20/21 22:55 02/21/21 09:00 02/21/21 09:00 02/21/21 09:00 02/21/21 09:00 Laboratory Results - last 24 hr 02/20/21 22:59: WBC 12.3 H D, RBC 4.32, Hgb 14.5, Hct 43.2, MCV 99.9 H, MCH 33.5 H, MCHC 33.5, RDW 12.8, Plt Count 415, MPV 7.8, Neut % (Auto) 72.9, Lymph % (Auto) 18.7, [place] % (Auto) 6.0, Eos % (Auto) 1.6, Baso % (Auto) 0.8, Neut # (Auto) 8.9 H, Lymph # (Auto) 2.3, [place] # (Auto) 0.7, Eos # (Auto) 0.2, Baso # (Auto) 0.1 02/20/21 22:59: Sodium 139, Potassium 3.5, Chloride 103, Carbon Dioxide 27, Anion Gap 1
--- NOTE | 2021-02-21 10:32 | PC.NURSE ---
arrived to floor wia wheelchair
--- NOTE | 2021-02-21 12:16 | NM_ITS ---
PROCEDURE: NM HEPATOBILIARY WO PHARM CLINICAL INDICATION: RUQ PAIN COMPARISON: US US GALLBLADDER from 02/21/2021 TECHNIQUE: DOSE: 8.25 mCi technetium Choletec. Ensure was used for fatty meal. FINDINGS: No gallbladder activity is present by 55 minutes. The patient did not wish to receive IV morphine to initiate sphincter bony contraction and tried demonstrate the gallbladder. Images were carried out up to 70 minutes with no gallbladder visualization. Activity was present in the right upper quadrant moves felt to be due to large bowel activity. A gallbladder ejection fraction was performed but is not felt to be accurate. IMPRESSION: Nonvisualization of the gallbladder up to 70 minutes. Dictated by: Willie Crespo MD 02/21/2021 19:17 Willie Crespo MD in OV 02/21/2021 19:17
--- NOTE | 2021-02-21 12:46 | HMH.GSCON ---
*Admission Date: 02/21/21 *Reason for consult:: Abdominal pain, possible gallbladder *History of present illness: Patient is a 36-year-old female with a 2-day history of epigastric pain beginning on 02/19/2021. She had some episodes of intermittent nausea. She did have some postprandial loose stools. She had eaten a piece of cake at a birthday libertarian and had increasing pain. She describes pain in the epigastrium and radiating to her right flank. She presented to the emergency department at [facility]. She had a CT scan of the abdomen and pelvis performed which was unremarkable. She did have some improvement and resolution of her symptoms after given Toradol and Zofran and was discharged home. However, at home she had eaten some chicken noodle soup and a grilled cheese sandwich and then developed epigastric pain and nausea. She describes this as burning. It progressed to quite severe pain radiating to her flank with some associated vomiting. She presented back to the emergency department. She underwent ultrasound of the gallbladder which was negative for gallstones. Liver function tests, amylase, lipase were within normal limits. Due to the intractable nature of her symptoms she was admitted for inpatient management. Review of Systems - Review of Systems Review of systems:: pertinent systems reviewed and negative unless documented below - *Neurologic Denies unsteadiness, Denies headache(s), Denies seizure-like activity [facility] History I have reviewed the patient's past medical history: Yes Medical History: Denies:: Diabetes Mellitus Type 1, Diabetes Mellitus Type 2 *Have you ever received a pneumonia vaccine?: Yes *Have you received a flu vaccine this season?: Yes Other Surgeries: Yes: Appendectomy, Cardiac Surgery, Other Amputation: No Fractures: No - *Social History Smoking Status: Never smoker Alcohol Intake: never Alcohol Intake Frequency:: holidays/special occasions only Substance Use Type: denies use *Occupational Status:: employed Housing: house Household Members: family *Travel in the last 8 weeks: Inside the [place] Family Hx:: Diabetes, Coronary Artery Disease, Heart Attack Meds Home Medications Medication Instructions Recorded Confirmed Type Ondansetron [Zofran 4mg ODT] 4 mg PO TIDP PRN #10 tab 02/20/21 02/20/21 Rx Allergies Allergy/AdvReac Type Severity Reaction Status Date / Time No Known Allergies Allergy Verified 06/15/20 10:19 Exam Vital signs and Labs for Last 24 Hours: Temp Pulse Resp BP Pulse Ox 98.4 F 75 15 103/42 L 98 02/21/21 11:31 02/21/21 11:31 02/21/21 11:31 02/21/21 11:31 02/21/21 11:31 Laboratory Results - last 24 hr 02/20/21 22:59: WBC 12.3 H D, RBC 4.32, Hgb 14.5, Hct 43.2, MCV 99.9 H, MCH 33.5 H, MCHC 33.5, RDW 12.8, Plt Count 415, MPV 7.8, Neut % (Auto) 72.9, Lymph % (Auto) 18.7, [place] % (Auto) 6.0, Eos % (Auto) 1.6, Baso % (Auto) 0.8, Neut # (Auto) 8.9 H, Lymph # (Auto) 2.3, [place] # (Auto) 0.7, Eos # (Auto) 0.2, Baso # (Auto) 0.1 02/20/21 22:59: Sodium 139, Potassium 3.5, Chloride 103, Carbon Dioxide 27, Anion Gap 12.5, BUN 6 L D, Creatinine 0.70, Estimated Creat Clear 119, Estimated GFR 95, Est GFR ( Amer) 115, Glucose 128 H, Calcium 9.9, Total Bilirubin 0.6, AST 36, ALT 45, Alkaline Phosphatase 55, Total Protein 7.8, Albumin 4.6, Globulin 3.2, Albumin/Globulin Ratio 1.4, Amylase 70, Lipase 104 02/21/21 04:10: SARS-CoV-2 (PCR) Not detected, Influenza A Untype (PCR) Not detected, Influenza Type B (PCR) Not detected I & O for Last 24 hours: Intake & Output 02/19/21 02/20/21 02/21/21 02/22/21 11:59 11:59 11:59 11:59 Weight 161 lb 9.581 oz - *Routine Abdominal Exam Present: soft Comments: Mild tenderness to palpation in the epigastrium without guarding or rebound. Results - Labs 02/20/21 22:59 02/20/21 22:59 Laboratory Results - last 24 hr 02/20/21 22:59: WBC 12.3 H D, RBC 4.32, Hgb 14.5, Hct 43.2,
--- NOTE | 2021-02-21 20:13 | PC.NURSE ---
MD Alexis instructed RN that pt can have water until midnight and then pt will be NPO after midnight, will do so and continue to monitor
--- NOTE | 2021-02-21 23:21 | PC.NURSE ---
No care needed.
[2021-02-22] VITALS (20 sets, daily range): BP systolic 98–140; BP diastolic 55–80; PULSE 51–96; RESP 13–20; TEMP 36.5–43; O2SAT 92–100; BMI 28.3
--- NOTE | 2021-02-22 05:56 | PC.NURSE ---
Emptied trash and linens
[2021-02-22 06:33] LABS: Basophils % 0.4 % (0.1-2.0); Eosinophils # 0.2 K/mm3 (0.0-0.4); Eosinophils % 2.7 % (0.1-12.0); Hematocrit 35.7 % (37.0-47.0); Hemoglobin 12.1 g/dL (12.2-16.2); Lymphocytes # 2.2 K/mm3 (0.7-4.5); Lymphocytes % 29.4 % (10-50); Mean Corpuscular HGB Conc 33.8 g/dL (31.8-35.4); Mean Corpuscular Volume 100.5 fl (81-99); Mean Platelet Volume 7.5 fl (7.4-10.4); Monocytes # 0.4 K/mm3 (0.1-1.0); Monocytes % 5.4 % (1.7-9.3); Neutrophils # 4.6 K/mm3 (1.8-7.8); Platelet Count 296 K/mm3 (142-424); Red Blood Count 3.56 M/mm3 (4.20-5.40); Red Cell Distribution Width 12.3 % (11.5-17.5); White Blood Count 7.5 K/mm3 (4.8-10.8)
[2021-02-22 06:49] LABS: Chloride 107 mmol/L (98-107); Potassium 3.9 mmoL/L (3.5-5.1); Sodium 138 mmol/L (136-145)
[2021-02-22 06:52] LABS: Albumin Level 3.5 g/dl (3.5-5.0); Albumin/Globulin Ratio 1.3 (1.1-1.8); Alkaline Phosphatase 43 U/L (38-126); Anion Gap 7.9 mEq/L (5-15); Aspartate Amino Transferase 24 U/L (14-36); Bilirubin,Total 0.8 mg/dl (0.2-1.3); Blood Urea Nitrogen 4 mg/dl (7-17); Calcium 8.3 mg/dl (8.4-10.2); Carbon Dioxide 27 mmol/L (22.0-30.0); Creatinine Clearance Estimated 127 mL/min (50-200); Estimated Glomerular Filt Rate 95 ml/min (>60); GFR (African American) 115 ML/MIN (>60); Globulin 2.7 g/dL (1.3-3.2); Glucose 92 mg/dl (74-100); Total Protein,Serum 6.2 g/dl (6.3-8.2)
--- NOTE | 2021-02-22 06:56 | HMH.GSPN ---
Subjective Narrative: Patient given full code diet last night. She did have an episode of acute epigastric pain as before yesterday evening approximately 10 PM. HIDA scan revealed nonvisualization of the gallbladder at 70 minutes consistent with cholecystitis. Progress Note: A&P Assessment and Plan for All Diagnoses:: I had a discussion with the patient regarding the findings on the HIDA scan. This does appear to be gallbladder etiology. I discussed the possibility of surgery today versus possible outpatient follow-up after discharge on very limited diet. However, I informed her there is a strong concern for recurrent symptoms given the fact that she had exacerbation of pain with liquids yesterday evening. She is somewhat anxious with proceeding with potential surgery. I will go ahead and get cardiology involved today due to her prior history postoperatively after her laparoscopic appendectomy. Exam Vital signs and Labs for Last 24 Hours: Temp Pulse Resp BP Pulse Ox 98.3 F 52 L 16 122/61 97 02/21/21 20:00 02/21/21 20:00 02/21/21 20:00 02/21/21 20:00 02/21/21 20:00 Laboratory Results - last 24 hr 02/22/21 05:30: WBC 7.5 D, RBC 3.56 L, Hgb 12.1 L, Hct 35.7 L, MCV 100.5 H, MCH 34.0 H, MCHC 33.8, RDW 12.3, Plt Count 296 D, MPV 7.5, Neut % (Auto) 62.0, Lymph % (Auto) 29.4, [place] % (Auto) 5.4, Eos % (Auto) 2.7, Baso % (Auto) 0.4, Neut # (Auto) 4.6, Lymph # (Auto) 2.2, [place] # (Auto) 0.4, Eos # (Auto) 0.2, Baso # (Auto) 0.0 I & O for Last 24 hours: Intake & Output 02/19/21 02/20/21 02/21/21 02/22/21 11:59 11:59 11:59 11:59 Intake Total 160 / 160 Output Total 650 / 650 Balance -490 / -490 Weight 161 lb 9.581 oz 159 lb 13.362 oz - *Routine Abdominal Exam Present: soft
[2021-02-22 07:09] LABS: Alanine Aminotransferase 29 U/L (12-78)
--- NOTE | 2021-02-22 08:36 | HMH.CNCARD ---
History of Present Illness Consult date: 02/22/21 Requesting physician: Jairo Franco Consult reason: pre-op evaluation Chief complaint: pre-op assessment History of present illness: 36-year-old female presented to the emergency room with gallbladder type symptoms. Patient states she has been having intermittent nausea and vomiting accompanied with pain radiating to the left flank area. Patient states she is also has been having loose stools. Patient states this has been going on since 02/19/2021. Cardiology was consulted for preop clearance for pending gallbladder surgery. Patient states she underwent appendectomy in May 2020, in which she did have complications after surgery. After the appendectomy, patient did become bradycardic and was having fluid retention. Patient did undergo a left heart catheterization at that time which revealed normal coronary arteries. Preserved ejection fraction of 55% while she was on dopamine. Mildly enlarged left-sided filling pressures with mild pulmonary hypertension. Patient was likely experiencing noncardiogenic pleural effusions with VQ mismatch and all secondary to infection with recent infectious appendicitis with appendectomy. It was recommended at that time for gentle diuresis while keeping patient slightly dry secondary to what appears to be noncardiogenic pulmonary edema/effusions. Patient states it did take her a few weeks to recover but since then, she has felt fine. Patient does have history of ASD repair with occluder device. This was prior to May 2020. Patient denies chest pain, tightness or pressure. Patient denies shortness of breath. Patient denies swelling of the lower extremities. Patient states on occasion she will have palpitations with exertion. Last echocardiogram was in May 2020 which revealed EF of 55 to 60% with no regional wall motion abnormality.Status post ASD repair with occluder device, device is well-seated, there is no flow across interatrial septum, agitated saline contrast study fails to identify intracardiac shunt. Trace mitral and tricuspid regurgitation, pulmonic outflow velocity within normal range. Patient is very hesitant regarding gallbladder surgery today due to postop complications that can happen. [facility] ANGIOGRAPHIC RESULTS (05/23) The left main artery Normal The left anterior descending artery Normal The circumflex artery Normal The right coronary artery Dominant normal The DIGGS ventriculogram reveals Preserved at 55% The left ventricular end-diastolic pressure 15 mmHg Right atrial pressure 8 mmHg Right ventricular pressure 28/10 mmHg Pulmonary artery pressure 28/15 mmHg Pulmonary occlusion pressure 12 to 14 mmHg Right atrial saturation 73% Pulmonary artery saturation 71% Femoral artery saturation 91% IMPRESSION Normal coronary arteries Preserved ejection fraction of 55% while on dopamine Mildly elevated left-sided filling pressures with mild pulmonary hypertension Patient is likely experiencing noncardiogenic pleural effusions with VQ mismatch and all secondary to infection from recent infectious appendicitis with appendectomy At this point I see no abnormality with the atrial septal occluder device There is likely some degree of sinus node dysfunction but at this time patient is responding well to low-dose dopamine PLAN 1. Formal echocardiogram today stat 2. Repeat CTA today 3. Gentle diuresis while keeping patient slightly dry secondary to what appears to be noncardiogenic pulmonary edema/effusions 4. Broaden antibiotics 5. Low-dose dopamine for sinus bradycardia 6. Consider low-dose morphine for pain control and anxiolysis Echocardiogram results: (05/23) 1. Normal left ventricular size, preserved left ventricular systolic function, visually estimated ejection fraction 55 to 60% with no regional wall motion abnormality, diastolic parameters are within normal range. 2. Status post ASD repair with occluder device, device is well-s
--- NOTE | 2021-02-22 09:01 | HMH.ACPN2 ---
<Shahnaz Alvarez - Last Filed: 02/22/21 09:01> Internal Medicine - PN: Subj *Date: 02/22/21 *Time: 08:05 Interval history: She rested well overnight although she is having some anxiety this morning related to her surgical options. She reports morphine provided good relief of pain brought on by eating jello yesterday evening. She is currently without pain or nausea. Exam Vital signs and Labs for Last 24 Hours: Temp Pulse Resp BP Pulse Ox 98.1 F 67 18 128/65 99 02/22/21 08:00 02/22/21 08:00 02/22/21 08:00 02/22/21 08:00 02/22/21 08:00 Laboratory Results - last 24 hr 02/22/21 05:30: WBC 7.5 D, RBC 3.56 L, Hgb 12.1 L, Hct 35.7 L, MCV 100.5 H, MCH 34.0 H, MCHC 33.8, RDW 12.3, Plt Count 296 D, MPV 7.5, Neut % (Auto) 62.0, Lymph % (Auto) 29.4, [place] % (Auto) 5.4, Eos % (Auto) 2.7, Baso % (Auto) 0.4, Neut # (Auto) 4.6, Lymph # (Auto) 2.2, [place] # (Auto) 0.4, Eos # (Auto) 0.2, Baso # (Auto) 0.0 02/22/21 05:30: Sodium 138, Potassium 3.9, Chloride 107, Carbon Dioxide 27, Anion Gap 7.9, BUN 4 L D, Creatinine 0.70, Estimated Creat Clear 127, Estimated GFR 95, Est GFR ( Amer) 115, Glucose 92, Calcium 8.3 L, Total Bilirubin 0.8, AST 24 D, ALT 29 D, Alkaline Phosphatase 43, Total Protein 6.2 L, Albumin 3.5 D, Globulin 2.7, Albumin/Globulin Ratio 1.3 I & O for Last 24 hours: Intake & Output 02/19/21 02/20/21 02/21/21 02/22/21 11:59 11:59 11:59 11:59 Intake Total 160 / 160 Output Total 650 / 650 Balance -490 / -490 Weight 161 lb 9.581 oz 159 lb 13.362 oz - Constitutional no acute distress - *Routine HEENT Exam Head: Present: normocephalic, atraumatic ENT: Present: mucous membranes moist - *Routine Respiratory Exam Present: CTA bilaterally - *Routine Cardiovascular Exam Present: RRR - *Routine Abdominal Exam Present: soft, normoactive bowel sounds. Absent: tenderness, distended, guarding, rigid, mass - *Routine Extremities Exam Present: full ROM, pulses intact. Absent: edema, tenderness, extremity cold to touch - *Routine Neurological Exam Present: alert, oriented X3 Assessment and Plan - Assessment and plan all Dx Assessment and Plan for all problems:: Provided reassurance. Await cardiology recommendations. Further per Dr. Alexis. <Martínez Alexis - Last Filed: 02/22/21 09:56> Internal Medicine - PN: Subj *Date: 02/22/21 *Time: 09:55 Exam Vital signs and Labs for Last 24 Hours: Temp Pulse Resp BP Pulse Ox 98.1 F 67 18 128/65 99 02/22/21 08:00 02/22/21 08:00 02/22/21 08:00 02/22/21 08:00 02/22/21 08:00 Laboratory Results - last 24 hr 02/22/21 05:30: WBC 7.5 D, RBC 3.56 L, Hgb 12.1 L, Hct 35.7 L, MCV 100.5 H, MCH 34.0 H, MCHC 33.8, RDW 12.3, Plt Count 296 D, MPV 7.5, Neut % (Auto) 62.0, Lymph % (Auto) 29.4, [place] % (Auto) 5.4, Eos % (Auto) 2.7, Baso % (Auto) 0.4, Neut # (Auto) 4.6, Lymph # (Auto) 2.2, [place] # (Auto) 0.4, Eos # (Auto) 0.2, Baso # (Auto) 0.0 02/22/21 05:30: Sodium 138, Potassium 3.9, Chloride 107, Carbon Dioxide 27, Anion Gap 7.9, BUN 4 L D, Creatinine 0.70, Estimated Creat Clear 127, Estimated GFR 95, Est GFR ( Amer) 115, Glucose 92, Calcium 8.3 L, Total Bilirubin 0.8, AST 24 D, ALT 29 D, Alkaline Phosphatase 43, Total Protein 6.2 L, Albumin 3.5 D, Globulin 2.7, Albumin/Globulin Ratio 1.3 I & O for Last 24 hours: Intake & Output 02/19/21 02/20/21 02/21/21 02/22/21 23:59 23:59 23:59 23:59 Intake Total 160 / 160 Output Total 650 / 650 Balance -490 / -490 Weight 150 lb 161 lb 9.581 oz 159 lb 13.362 oz Assessment and Plan (1) Biliary colic Status: Acute Category: Medical Code(s): K80.50 - Calculus of bile duct without cholangitis or cholecystitis without obstruction (2) Abdominal pain Status: Acute Qualifiers: Abdominal location: upper abdomen, unspecified Qualified Code(s): R10.10 - Upper abdominal pain, unspecified Category: Medical Code(s): R10.9 - Unspecified abdominal p
--- NOTE | 2021-02-22 11:04 | PC.NURSE ---
pt to OR with Brando via bed
--- NOTE | 2021-02-22 12:13 | P.PN_ITS ---
[facility] Anesthesia Checklist - Patient Identification Patient Identification: Arm Band - Structural Data Admitted From: Inpatient Planned Operative Procedure/s: Laparoscopic Cholecystectomy Consent for Planned Operative Procedure(s) Verified: Yes Verified Documents: Surgical Consent, History and Physical - NPO Status Verified Time NPO: 00:00 - Additional verifications Anesthesia Reactions: No - Airway Assessment C-Spine Mobility Assessed: Yes (mp2) TMJ Mobility Assessed: Yes Dentition: Good Dentition - Neurological Assessment Level of Consciousness: Awake, Alert - Anesthesia Plan Anesthesia Risk discussed: Yes Anesthesia Plan: Verified ASA Class: II Anesthesia Type: General [facility] History I have reviewed the patient's past medical history: Yes Medical History: Reports:: Arrhythmia (bradycardia) Denies:: Cancer, Diabetes Mellitus Type 1, Diabetes Mellitus Type 2, MRSA *Have you ever received a pneumonia vaccine?: No *Have you received a flu vaccine this season?: No Anesthesia experience/problems:: nac Laterality Cases: Bilateral: Other Other Surgeries: Yes: Appendectomy, Cardiac Surgery, Other Amputation: No Fractures: No - *Social History Last grade of school completed: Advanced degree Smoking Status: Never smoker Alcohol Intake: never Alcohol Intake Frequency:: holidays/special occasions only Substance Use Type: denies use *Occupational Status:: employed Housing: house Household Members: significant other *Travel in the last 8 weeks: None Family Hx:: Cancer, Diabetes
--- NOTE | 2021-02-22 13:02 | HMH.OPNOTE ---
Date of procedure: 02/22/21 Pre-op Diagnosis:: Gallbladder disease Post-op Diagnosis:: Same Procedure performed:: Laparoscopic cholecystectomy Surgeon:: Jairo Franco MD SHELLFISH SORTER:: Gabino Mayo Anesthesia: GETA Estimated blood loss (mL): 20 Clinical Note:: Patient is a 36-year-old female. She had been having some symptoms consistent with biliary colic. She had been seen in the emergency department for this and was able to be managed as an outpatient. However, she had recurrent symptoms and presented back to the emergency department within that same 24-hour period. She underwent ultrasound of the gallbladder which was negative for gallstones. However she had symptoms consistent with gallbladder disease and intractable pain. She was therefore admitted for inpatient management. Surgical consultation was obtained. Patient did undergo HIDA scan on 02/21/2021 and this revealed nonvisualization of the gallbladder. She was given clear liquid diet that evening and she had recurrent symptoms. The options were discussed with her and plan was made to proceed with cholecystectomy while an inpatient. Operative findings:: She had a distended gallbladder with some edema of the surrounding tissues and wall. There were some omental adhesions to the neck of the gallbladder. Operative note:: Patient was taken to the operating room. She was given preoperative intravenous antibiotics. In the operating room she was placed in a supine position. General anesthesia was induced via endotracheal tube. Abdomen was prepped and draped in the standard surgical fashion. Infraumbilical skin incision was made and while performing abdominal wall lift Veress needle was inserted. CO2 pneumoperitoneum was achieved to 15 mmHg. 11 mm optical trocar was inserted at the umbilicus. Intraperitoneal contents were visualized. She was positioned in reverse Trendelenburg left side down. A couple of 5 mm trochars were inserted in the right upper abdomen. 10 mm trocar was inserted in the epigastrium. Gallbladder was identified and grasped and retracted anteriorly and superiorly over the dome of the liver. Gallbladder was distended. There appeared to be some mild thickening and there was some edema of the surrounding tissues. Infundibulum the gallbladder was retracted anterior laterally. There were some omental adhesions to the gallbladder neck. Blunt dissection was carried out at the neck of the gallbladder bluntly incising the visceral peritoneum. Dissection was carried out isolating the cystic duct and cystic artery. Cystic duct was isolated, multiply clipped, and sharply divided. Cystic artery was carefully coagulated with RAUL ultrasonic robotic ferdinand. Gallbladder was dissected free from the liver in a retrograde fashion using RAUL ultrasonic harmonic ferdinand. Gallbladder was placed within an Endo Catch retrieval device and removed from the peritoneal cavity via the umbilical trocar site which required some minor extension of the fascial incision for delivery. Limited irrigation was performed of the gallbladder fossa and perihepatic space. Irrigation was performed until clear. Trochars were then removed as CO2 pneumoperitoneum was evacuated. Fascia at the umbilicus was closed with several interrupted 0 Vicryl sutures. Local anesthetic was infiltrated. Skin incisions were closed with 4-0 Monocryl subcuticular fashion. Steri-Strips and dressings were applied. Condition: stable Disposition: PACU Specimens:: Gallbladder and contents Complications:: None immediately apparent
--- NOTE | 2021-02-22 13:11 | HMH.ANESI ---
[facility] Anesthesia Record Part I Intake, IV Amount: 1,000 Estimated blood loss (mL): 10 Urine output (mL): 0 Blood Pressure: 140/76 SaO2: 94 Pulse Rate: 82 Respiratory Rate: 16 Temperature: 97.7 F Patient is:: Drowsy, Stable Stable to PACU at:: 13:10
--- NOTE | 2021-02-22 13:41 | PC.NURSE ---
received report from PACU (Scar).
--- NOTE | 2021-02-22 13:44 | SUR.PHASEI ---
1339- detailed report called to keon stone on med surg floor. 1341- pt left in stable condition on medsurg floor with keon stone by keon saenz and keon watkins
--- NOTE | 2021-02-22 13:45 | PC.NURSE ---
pt back from OR
--- NOTE | 2021-02-22 14:47 | HMH.ANESII ---
[facility] Anesthesia Record Part II Discharge Time: 13:40 Destination: Medical Surgical Department PACU nurse assessment reviewed?: Yes Patient Condition:: Good Anesthesia Complications:: None Swallowing reflex intact?: Yes Cyanosis?: No Blood Pressure: 129/55 Pulse Rate: 72 Temperature: 97.7 F Mental Status: Alert & Oriented Pain level:: 0 Nausea and/or vomitting:: None Intake, IV Amount: 0
[2021-02-23] VITALS: BP 108/64; PULSE 72; RESP 16; TEMP 36.6; O2SAT 98
[2021-02-23 04:00] VITALS: BP 115/62; PULSE 59; RESP 17; TEMP 36.9; O2SAT 97
[2021-02-23 04:51] VITALS: BMI 30.1
--- NOTE | 2021-02-23 05:26 | PC.NURSE ---
Patient rested well through night. VSS on RA. Pain treated and controlled per report with tylenol. Patient alert, oriented, cooperative and able to make needs known. Up ambulating in room. Tolerating PO intake. Lap sites x4 to abdomen, dressings CDI except right lateral which has minimal drainage.
--- NOTE | 2021-02-23 06:34 | HMH.GSPN ---
Subjective Narrative: Sleeping Progress Note: A&P (1) Biliary colic Status: Acute (2) Abdominal pain Status: Acute Assessment and Plan for All Diagnoses:: Probable discharge today. Exam Vital signs and Labs for Last 24 Hours: Temp Pulse Resp BP Pulse Ox 98.4 F 59 L 17 115/62 97 02/23/21 04:00 02/23/21 04:00 02/23/21 04:00 02/23/21 04:00 02/23/21 04:00 Laboratory Results - last 24 hr 02/22/21 05:30: WBC 7.5 D, RBC 3.56 L, Hgb 12.1 L, Hct 35.7 L, MCV 100.5 H, MCH 34.0 H, MCHC 33.8, RDW 12.3, Plt Count 296 D, MPV 7.5, Neut % (Auto) 62.0, Lymph % (Auto) 29.4, Mckenzie % (Auto) 5.4, Eos % (Auto) 2.7, Baso % (Auto) 0.4, Neut # (Auto) 4.6, Lymph # (Auto) 2.2, Mckenzie # (Auto) 0.4, Eos # (Auto) 0.2, Baso # (Auto) 0.0 02/22/21 05:30: Sodium 138, Potassium 3.9, Chloride 107, Carbon Dioxide 27, Anion Gap 7.9, BUN 4 L D, Creatinine 0.70, Estimated Creat Clear 127, Estimated GFR 95, Est GFR ( Amer) 115, Glucose 92, Calcium 8.3 L, Total Bilirubin 0.8, AST 24 D, ALT 29 D, Alkaline Phosphatase 43, Total Protein 6.2 L, Albumin 3.5 D, Globulin 2.7, Albumin/Globulin Ratio 1.3 I & O for Last 24 hours: Intake & Output 02/20/21 02/21/21 02/22/21 02/23/21 11:59 11:59 11:59 11:59 Intake Total 160 / 160 2490 / 2490 Output Total 1250 / 1250 1400 / 1400 Balance -1090 / -1090 1090 / 1090 Weight 161 lb 9.581 oz 159 lb 13.362 oz 170 lb 3.15 oz
[2021-02-23 08:00] VITALS: BP 104/62; PULSE 61; RESP 15; TEMP 36.9; O2SAT 100
--- NOTE | 2021-02-23 08:22 | HMH.ACPN2 ---
<Huong Cook - Last Filed: 02/23/21 08:22> Internal Medicine - PN: Subj *Date: 02/23/21 *Time: 08:22 Interval history: Patient is feeling better this morning. She has had some abdominal pain that did radiate to her shoulders. She states she still feels gaseous distention but has not passed gas yet. She has been up walking around and did tolerate a diet. Exam Vital signs and Labs for Last 24 Hours: Temp Pulse Resp BP Pulse Ox 98.4 F 61 15 104/62 L 100 02/23/21 08:00 02/23/21 08:00 02/23/21 08:00 02/23/21 08:00 02/23/21 08:00 I & O for Last 24 hours: Intake & Output 02/20/21 02/21/21 02/22/21 02/23/21 11:59 11:59 11:59 11:59 Intake Total 160 / 160 4320 / 4320 Output Total 1250 / 1250 1400 / 1400 Balance -1090 / -1090 2920 / 2920 Weight 161 lb 9.581 oz 159 lb 13.362 oz 170 lb 3.15 oz - Constitutional no acute distress - *Routine Respiratory Exam Present: CTA bilaterally - *Routine Cardiovascular Exam Present: RRR - *Routine Abdominal Exam Present: soft, normoactive bowel sounds, tenderness (Around incision sites, dressings clean and dry) - *Routine Extremities Exam Absent: cyanosis, clubbing, edema - *Routine Skin Exam Present: warm. Absent: rash - *Routine Neurological Exam Present: alert, oriented X3 Assessment and Plan (1) Biliary colic Status: Acute Category: Medical Code(s): K80.50 - Calculus of bile duct without cholangitis or cholecystitis without obstruction (2) Abdominal pain Status: Acute Qualifiers: Abdominal location: upper abdomen, unspecified Qualified Code(s): R10.10 - Upper abdominal pain, unspecified Category: Medical Code(s): R10.9 - Unspecified abdominal pain (3) Status post laparoscopic cholecystectomy Status: Acute Category: Surgical Code(s): Z90.49 - Acquired absence of other specified parts of digestive tract - Assessment and plan all Dx Assessment and Plan for all problems:: Patient is doing well after surgery and can likely be discharged today. Surgery to follow. <Martínez Alexis - Last Filed: 02/23/21 08:56> Internal Medicine - PN: Subj *Date: 02/23/21 *Time: 08:55 Exam Vital signs and Labs for Last 24 Hours: Temp Pulse Resp BP Pulse Ox 98.4 F 61 15 104/62 L 100 02/23/21 08:00 02/23/21 08:00 02/23/21 08:00 02/23/21 08:00 02/23/21 08:00 I & O for Last 24 hours: Intake & Output 02/20/21 02/21/21 02/22/21 02/23/21 23:59 23:59 23:59 23:59 Intake Total 160 / 160 2490 / 2490 1830 / 1830 Output Total 650 / 650 1999 0 / 0 Balance -490 / -490 490 / 490 183 / 1830 Weight 150 lb 161 lb 9.581 oz 159 lb 13.362 oz 170 lb 3.15 oz Assessment and Plan (1) Biliary colic Status: Acute Category: Medical Code(s): K80.50 - Calculus of bile duct without cholangitis or cholecystitis without obstruction (2) Abdominal pain Status: Acute Qualifiers: Abdominal location: upper abdomen, unspecified Qualified Code(s): R10.10 - Upper abdominal pain, unspecified Category: Medical Code(s): R10.9 - Unspecified abdominal pain (3) Status post laparoscopic cholecystectomy Status: Acute Category: Surgical Code(s): Z90.49 - Acquired absence of other specified parts of digestive tract - Assessment and plan all Dx Assessment and Plan for all problems:: Saw patient, agree with above note. Discharge home today.
--- NOTE | 2021-02-23 13:24 | HMH.DCSUM ---
General - General Admission date:: 02/21/21 Discharge date: 02/23/21 HPI HPI: Ms. Whaley is a 36yo WF with history significant for migraine and ASD. She relates a 2-day history of epigastric pain which started Sunday morning and was accompanied by some intermittent nausea and several episodes of diarrhea. She was able to eat and drink normally although her pain was increased after eating a piece of cake at a birthday green party. Yesterday morning, her epigastric pain and nausea increased and the pain began radiating to her right flank. She presented to the [facility] ED where she had an unremarkable workup including CT abdomen/pelvis with contrast, CBC, CMP, and UA. She had improvement in her symptoms with toradol and zofran and was discharged home with instructions to follow up with surgery today. She reports after resting for a while at home yesterday she woke up hungry and was able to eat some chicken noodle soup and grilled cheese, however, shortly after eating she began to again experience burning epigastric pain and nausea. She reports the burning progressed rapidly to severe pain which was radiating to her flanks bilaterally and she had an episode of vomiting. She returned to the ED last night and was found to have a mildly elevated WBC of 12.3 with normal right upper quadrant ultrasound. It was felt she would need admission for further evaluation and management of her symptoms. At this time, she is resting quietly on the ED stretcher. Her pain and nausea are both tolerable. She has had no further emesis or diarrheal stools overnight. Hospital Course Hospital Course: Surgery was consulted and the patient was seen by Dr. Franco. He felt her symptoms were consistent with biliary disease, however her CT scan and ultrasound were unremarkable. He ordered a HIDA scan which showed nonvisualization of the gallbladder up to 70 minutes consistent with cholecystitis. Cardiology was consulted for preop clearance. During her appendectomy in May 2020, she became bradycardic and had fluid retention. She had undergone a heart cath at that time which revealed normal coronaries and preserved ejection fraction. They felt she was at a low and acceptable risk to proceed with gallbladder surgery. She was taken to the OR on 02/22/2021 and had a laparoscopic cholecystectomy. She tolerated the procedure well. She was able to tolerate a diet and did have some residual abdominal pain that radiated to her shoulders. She was up and walking and was stable to be discharged home. She will follow up with Dr. Franco in the office. Objective Vital signs: Temp Pulse Resp BP Pulse Ox 98.4 F 61 15 104/62 L 100 02/23/21 08:00 02/23/21 08:00 02/23/21 08:00 02/23/21 08:00 02/23/21 08:00 Narrative: - Constitutional no acute distress - *Routine Respiratory Exam Present: CTA bilaterally - *Routine Cardiovascular Exam Present: RRR - *Routine Abdominal Exam Present: soft, normoactive bowel sounds, tenderness (Around incision sites, dressings clean and dry) - *Routine Extremities Exam Absent: cyanosis, clubbing, edema - *Routine Skin Exam Present: warm. Absent: rash - *Routine Neurological Exam Present: alert, oriented X3 DS: Diagnosis - Discharge Diagnosis (1) Biliary colic Status: Acute (2) Abdominal pain Status: Acute (3) Status post laparoscopic cholecystectomy Status: Acute Discharge Plan - Patient Discharge Instructions ACTIVITY: Limited activity DIET: advance to your usual diet Patient Instructions: Cholecystectomy -- Laparoscopic Surgery - Follow up Plan Follow up with: Jairo Franco MD [Staff Physician] - 03/07/21 9:00 am Disposition: Home, Self-Care Condition at discharge:: Improved Home Medications: Home Medications Medication Instructions Recorded Confirmed Type Ondansetron [Zofran 4mg ODT] 4 mg PO TIDP PRN #10 tab 02/20/21 02/20/21 Rx Hydrocod/Acet 5/325 mg [B[place]keye 1 tab
== END 2021-02-23 10:10 | disposition home or self-care (01) ==
LOC: ER 02-21 04:09 → 2ND 02-21 12:31
PROVIDERS: Surgery; Admitting Provider Family Medicine; Emergency Provider Emergency Medicine; PCP Family Medicine; Visit Provider Family Medicine
PROC: 0FT44ZZ Resection of Gallbladder, Percutaneous Endoscopic Approach (ICD-10-PCS; CPT 47562; principal; 2021-02-22 10:55)
DX: K81.0 Acute cholecystitis (principal); Z20.822 Contact with and (suspected) exposure to COVID-19
CPT/HCPCS: 47562; 36415; 74177; 76705; 78226; 80053; 81001; 81025; 82150; 83690; 85025; 88304; 93005; 96365; 96366; 96375; 96376; 99283; 99284; A9537; C9803; G0378; J2405; Q9967; U0003; U0005

== ENCOUNTER 2021-07-29 12:13 | Emergency (ER) | payer OTHER, SELFPAY ==
[2021-07-29 12:15] VITALS: BP 111/71; PULSE 85; RESP 18; TEMP 36.8; O2SAT 100; BMI 29.7
--- NOTE | 2021-07-29 12:32 | HMH.EDUTC ---
[facility] Disposition Clinical Impression: URI (upper respiratory infection) Qualifiers: URI type: unspecified URI Qualified Code(s): J06.9 - Acute upper respiratory infection, unspecified Disposition: Home, Self-Care Condition on Discharge: Good Instructions: Sore Throat, DI for Sinusitis, DI for Cough -- Adult Additional Instructions: *Monitor Temp, Over the counter Motrin or Tylenol as directed/as needed Tylenol every 4 hours and Motrin every 6 hours (as long as your family doctor has told you that you can take it) for fever or pain. and straight to ER if unable to lower temp less than 101.0 after medication given *Warm salt water gargles may help to soothe the throat *Throat Lozenges *Warm fluids like tea with honey may help to soothe the throat *Sleep elevated *Humidifier/Vaporizer Your throat swab was sent for culture. Those results are typically sent to your primary care. Be sure to follow up in 2-3 days with your family doctor/primary care physician if no improvement so they can review those result and treat if necessary. If you don?t have a primary care doctor, I recommend you get one but in the mean time, you will have to return to a walk in clinic Follow up IMMEDIATELY for new or worsening symptoms or no Noticeable improvement over the next 48-72 hours. 911 for difficulty breathing or swallowing Prescriptions: Azithromycin [Z-Santos 250mg Tab] 250 mg PO DIRECTED #6 tab Transmission Status: Pending to [facility] Referrals: Martínez Alexis MD [Primary Care Provider] - As needed Time of Disposition: 12:46 Medical Decision Making - Parker Inquiry Pt receiving controlled substance: No Parker was queried for this patient: No Vital Signs: 07/29/21 12:15 07/29/21 12:40 Temperature 98.2 F 98.2 F Temperature Source Oral Pulse Rate 85 Pulse Rate [Right Brachial] 85 Respiratory Rate 18 18 Blood Pressure 111/71 Blood Pressure [Right Arm] 111/71 Blood Pressure Mean [Right Arm] 84 Blood Pressure Source [Right Arm] Automatic Cuff Blood Pressure Position [Right Arm] Sitting 02 Sat by Pulse Oximetry 100 Oxygen Delivery Method Room Air - Lab Data Lab results reviewed: Yes: I reviewed the patient's lab results. Lab Results 07/29/21 12:25: Group A Strep Rapid Negative Orders (Tests/Meds): ORDERS Category Date Time Status Strep Screen Confirmation Stat Micro 07/29/21 12:25 Received Medical Decision Narrative: Medication verified per pharmacy that is safe for use during [facility] HPI - General Stated complaint: sore throat Time Seen by Provider: 07/29/21 12:32 Mode of Arrival: Ambulatory Source of Information: Patient Limitations: No Limitations Description of Symptoms (Recalled from Triage Doc. by RN): PATIENT C/O SORE THROAT, CHEST CONGESTION AND COUGH SINCE SUNDAY HEENT Symptoms (Recalled from RN notes): Yes Resp Symptoms (Recalled from RN notes): Yes Skin Symptoms (Recalled from RN notes): No MS Symptoms (Recalled from RN notes): No Functional Status (Recalled from RN notes): WNL - History of Present Illness Provider Complaint: Patient states that she is 5mths OB States that she has been having cough, sinus congestion and pressure and sore scratchy throat States that she feels like she has blisters in her throat and feels scratchy and pain when she swallows State that it has continued to get worse over the last couple of days so today she came in to get checked - Related Data Home Medications Medication Instructions Recorded Confirmed etonogestrel 68 mg subdermal SUBDERMAL 03/29/21 03/29/21 implant Previous Rx's Medication Instructions Recorded Azithromycin [Z-Santos 250mg Tab] 250 mg PO DIRECTED #6 tab 07/29/21 Allergies Allergy/AdvReac Type Severity Reaction Status Date / Time No Known Allergies Allergy Verified 03/29/21 10:56 - Worker's Comp Is this a Worker's Comp case?: No [facility] History - Hepatitis A Screen Attestati
[2021-07-29 12:39] LABS: Strep Scrn Group A (Rapid) Negative (Negative)
[2021-07-29 12:40] VITALS: BP 111/71; PULSE 85; RESP 18; TEMP 36.8; O2SAT 100
== END 2021-07-29 12:54 | disposition home or self-care (01) ==
PROVIDERS: Emergency Provider Nurse Practitioner; PCP Family Medicine
DX: J06.9 Acute upper respiratory infection, unspecified (principal)
CPT/HCPCS: 87430; 99212; G0463

== ENCOUNTER 2021-09-11 15:26 | Emergency (ER) | payer OTHER, SELFPAY ==
[2021-09-11 15:50] VITALS: BP 108/72; PULSE 96; RESP 19; TEMP 37; O2SAT 97; BMI 30.4
[2021-09-11 16:05] LABS: Adenovirus,PCR Not Detected (NotDetected); Bordetella Pertussis Not Detected (NotDetected); Chlamydophila Pneumoniae, PCR Not Detected (NotDetected); Coronavirus 229E Not Detected (NotDetected); Coronavirus NL63 Not Detected (NotDetected); Coronavirus OC43 Not Detected (NotDetected); Coronovirus HKU1,PCR Not Detected (NotDetected); Human Metapneumovirus Not Detected (NotDetected); Influenza A, PCR Not Detected (NotDetected); Influenza AH1, 2009 Not Detected (NotDetected); Influenza AH1, PCR Not Detected (NotDetected); Influenza AH3,PCR Not Detected (NotDetected); Influenza B, PCR Not Detected (NotDetected); Mycoplasma Pneumoniae, PCR Not Detected (NotDetected); Parainfluenza 1, PCR Not Detected (NotDetected); Parainfluenza 2, PCR Not Detected (NotDetected); Parainfluenza 3, PCR Not Detected (NotDetected); Parainfluenza 4, PCR Not Detected (NotDetected); Respiratory Syncytial Virus Not Detected (NotDetected); Rhinovirus/Enterovirus Not Detected (NotDetected)
--- NOTE | 2021-09-11 16:08 | HMH.EDUTC ---
[facility] [place] Clinical Impression: URI (upper respiratory infection) Qualifiers: URI type: unspecified viral URI Qualified Code(s): J06.9 - Acute upper respiratory infection, unspecified Disposition: Home, Self-Care Condition on Discharge: Good Instructions: DI for Viral Upper Respiratory Infection -- Adult Additional Instructions: covid swab was sent to lab, call tomorrow for results. self isolate until test results are known to be negative No sign of a bacterial infection. Likely viral. Viruses can take 7-14 days to run their course. Nasal saline and bulb syringe or nose Terese to remove nasal drainage to help with nasal congestion. Hard to eat, drink, sleep with nasal congestion so important to keep this cleaned out. Monitor temp. Tylenol or Motrin as needed for pain or fever Encourage fluids, water, Gatorade, Powerade, Pedialyte if infant/toddler/child Warm salt water gargles Warm fluids Sore throat lozenges Sleep elevated Humidifier/vaporizer Follow-up immediately for new or worsening symptoms or no noticeable improvement over the next 48-72 hours. Referrals: Martínez Alexis MD [Primary Care Provider] - Time of Disposition: 16:28 Medical Decision Making - Parker Inquiry Pt receiving controlled substance: No Vital Signs: 09/11/21 15:50 09/11/21 16:10 Temperature 98.6 F 98.6 F Temperature Source Oral Pulse Rate 96 H Pulse Rate [Right Brachial] 96 H Respiratory Rate 19 19 Blood Pressure 108/72 L Blood Pressure [Right Arm] 108/72 L Blood Pressure Mean [Right Arm] 84 Blood Pressure Source [Right Arm] Automatic Cuff Blood Pressure Position [Right Arm] Sitting 02 Sat by Pulse Oximetry 97 Oxygen Delivery Method Room Air - Lab Data Lab Results 09/11/21 15:58: Group A Strep Rapid Negative Orders (Tests/Meds): ORDERS Category Date Time Status Full Resp Panel w/COVID ([facility]) Routine Lab 09/11/21 15:58 Received Strep Screen Confirmation Stat Micro 09/11/21 15:58 Received [facility] [place] - General Chief complaint: [facility] Stated complaint: exposed to strep, sore throat Time Seen by Provider: 09/11/21 16:08 Mode of Arrival: Ambulatory Source of Information: Patient Limitations: No Limitations Description of Symptoms (Recalled from Triage Doc. by RN): PATIENT C/O COUGH, SORE THROAT, AND HEADACHE SINCE YESTERDAY MORNING HEENT Symptoms (Recalled from RN notes): Yes Resp Symptoms (Recalled from RN notes): Yes Skin Symptoms (Recalled from RN notes): No MS Symptoms (Recalled from RN notes): No Functional Status (Recalled from RN notes): WNL - History of Present Illness Provider Complaint: 36 yr old female presents for sore throat,cough and headache for a few days - Related Data Home Medications Medication Instructions Recorded Confirmed etonogestrel 68 mg subdermal SUBDERMAL 03/29/21 03/29/21 implant Previous Rx's Medication Instructions Recorded Azithromycin [Z-Santos 250mg Tab] 250 mg PO DIRECTED #6 tab 07/29/21 Allergies Allergy/AdvReac Type Severity Reaction Status Date / Time No Known Allergies Allergy Verified 03/29/21 10:56 - Worker's Comp Is this a Worker's Comp case?: No [facility] History - Hepatitis A Screen Attestation statement:: This patient has been screened for Hepatitis A risk factors. I have reviewed the patient's past medical history: Yes Medical History: Reports:: Arrhythmia Denies:: Cancer, Diabetes Mellitus Type 1, Diabetes Mellitus Type 2, MRSA Comment: atrial defect Laterality Cases: Bilateral: Other Other Surgeries: Yes: Appendectomy, Cardiac Surgery, Cholecystectomy, Other Amputation: No Fractures: No Comment: atrial defect repair--2003 - Social History Smoking Status: Never smoker Alcohol Intake: never Alcohol Intake Frequency:: holidays/special occasions only Substance Use Type: denies use Occupational Status: other Housing: house Household Members: significant other Family Hx:: Cancer, Diabetes
[2021-09-11 16:10] VITALS: BP 108/72; PULSE 96; RESP 19; TEMP 37; O2SAT 97
[2021-09-11 16:19] LABS: Strep Scrn Group A (Rapid) Negative (Negative)
[2021-09-11 17:51] LABS: Coronavirus 19, PCR Detected (NotDetected)
== END 2021-09-11 16:40 | disposition home or self-care (01) ==
PROVIDERS: Emergency Provider Nurse Practitioner Family; PCP Family Medicine
DX: U07.1 COVID-19 (principal); J02.9 Acute pharyngitis, unspecified; R05.9 Cough, unspecified; R51.9 Headache, unspecified
CPT/HCPCS: 87430; 87581; 87632; 87798; 99212; C9803; G0463; U0003; U0005

== ENCOUNTER 2022-11-12 14:55 | Emergency (ER) | payer OTHER, SELFPAY ==
[2022-11-12 15:10] VITALS: BP 127/70; PULSE 84; RESP 18; TEMP 36.8; O2SAT 99; BMI 22.2
[2022-11-12 15:19] LABS: Microscopic, Urine URINE MICROSCOPIC (MICROSCOPIC)
--- NOTE | 2022-11-12 15:20 | EXP.UTC ---
Discharge Plan Disposition Patient Disposition: Home, Self-Care Condition: Good Prescriptions Prescriptions: New cephalexin 500 mg capsule 500 mg PO QID 7 Days Qty: 28 0RF No Action Nexplanon 68 mg implant SUBDERMAL Referrals Follow up/Referrals: Martínez Alexis MD [Primary Care Provider] - See instructions Activity Restrictions/Add. Instructions Additional Instructions/Restrictions: Drink plenty of fluids. Take tylenol or ibuprofen for pain or fever. Take the medications as directed. Follow up with your regular doctor. GO TO THE ER FOR ANY WORSENING SYMPTOMS We will culture the urine. That will tell what bacteria is causing your infection and which antibiotics will treat it best. Sometimes the first antibiotic we prescribe turns out to not work against different bacteria. So, make sure you follow up within 3 days if you are not getting better. Clinical Impressions Clinical Impression: UTI (urinary tract infection) Instructions Patient Instructions: Urinary Tract Infection, DI for Urinary Tract Infection (UTI), Cephalexin Discharge ED Provider: Owen Riley [facility] General Stated complaint: kidney pressure/pain Time Seen by Provider: 11/12/22 15:20 History of Present Illness Provider Complaint: She states that she has had low back pain, dysuria, urinary frequency and hematuria for the past several days. She is breast feeding her 10 month daughter. Related Data Home Medications Medication Instructions Recorded Confirmed etonogestrel 68 mg subdermal subdermal 03/29/21 03/29/21 implant (Nexplanon) Previous Rx's Medication Instructions Recorded cephalexin 500 mg capsule 500 mg PO QID 7 days #28 caps 11/12/22 Allergies Allergy/AdvReac Type Severity Reaction Status Date / Time No Known Allergies Allergy Verified 11/12/22 15:25 [facility] Disclaimer: The information contained in this section may have been updated after the patient was seen, as this information can be updated by other users. Medical History (Updated 11/12/22 @ 15:38 by Sakina Davidson RN) Abnormal EKG Daytime somnolence Decreased stamina Dyspnea Palpitations Sinus tachycardia Social History Smoking Status: Never smoker alcohol intake: never substance use type: denies use current occupational status: other Travel in the last 8 weeks: None household members: significant other housing: house current occupation: self employed farming caffeine: No ROS Obtained: Yes All systems reviewed & no additional complaints except as documented Constitutional Constitutional: Reports system reviewed and no additional complaints, except as documented, Denies chills and Denies fever(s) Eyes Eyes: Denies eye discharge ENT Ears, Nose, Mouth, and Throat: Denies dysphagia, Denies sore throat and Denies throat swelling Cardiovascular Cardiovascular: Denies chest pain and Denies dyspnea Respiratory Respiratory: Denies chest congestion, Denies cough and Denies dyspnea Gastrointestinal Gastrointestingal: Denies abdominal pain, constipation, diarrhea, dysphagia, nausea or vomiting Genitourinary Female Genitourinary: Reports as per HPI, Reports dysuria, Reports urinary frequency, Denies urinary incontinence, Reports urinary hesitancy and Reports urinary urgency Musculoskeletal Musculoskeletal: Denies arthralgias and Reports back pain Integumentary/Breasts Skin/Breast: Denies rash Neurologic Neurologic: Denies paresthesias Allergic/Immunologic Allergic/Immunologic: Denies throat swelling Physical Exam General General appearance: alert and in no apparent distress Head Head exam: atraumatic and normocephalic Eye Eye exam: Present normal appearance, PERRL and EOMI ENT ENT exam: Present normal exam, mucous membranes moist, TM's normal bilaterally and normal external ear exam Neck Neck exam: Present normal inspection, full ROM and tr
[2022-11-12 15:30] LABS: Appearance,Urine CLEAR (Clear); Bilirubin,Urine Negative (Negative); Blood, Urine 3+ (Negative); Color,Urine YELLOW (Yellow); Glucose,Urine (UA) Negative (Negative); Ketones,Urine Negative (Negative); Leukocyte Esterase,Urine 2+ (Negative); Nitrate,Urine Negative (Negative); Protein,Urine TRACE (Negative); Urobilinogen,Urine 0.2 EU/dl (0.2)
[2022-11-12 15:37] VITALS: BP 127/70; PULSE 84; RESP 18; TEMP 36.8; O2SAT 99
[2022-11-12 15:52] LABS: Bacteria,Urine 2+ /lpf; Squamous Epithelial Cell,Urine Occasional #/hpf (0-5)
== END 2022-11-12 15:37 | disposition home or self-care (01) ==
PROVIDERS: Emergency Provider Nurse Practitioner Family; PCP Family Medicine
DX: N39.0 Urinary tract infection, site not specified (principal); B96.89 Other specified bacterial agents as the cause of diseases classified elsewhere; M54.59 Other low back pain
CPT/HCPCS: 81001; 87086; 87088; 87186; 99212; 99214; G0463

== ENCOUNTER 2023-01-13 11:19 | Emergency (ER) | payer OTHER, SELFPAY ==
[2023-01-13 11:30] VITALS: BP 106/55; PULSE 93; RESP 20; TEMP 36.7; O2SAT 98; BMI 21.8
--- NOTE | 2023-01-13 11:38 | EXP.UTC ---
Discharge Plan Disposition Patient Disposition: Home, Self-Care Condition: Good Prescriptions Prescriptions: New azithromycin [Zithromax Z-Santos] 250 mg tablet See Rx Instructions .ROUTE .COMPLEX 5 Days Qty: 6 0RF Rx Instructions: For 250 mg dose pack: take 500 mg today (day 1), then 250 mg for 4 days (days 2-5) No Action Nexplanon 68 mg implant 1 implant SUBDERMAL ONCE Referrals Follow up/Referrals: Martínez Alexis MD [Primary Care Provider] - See instructions Activity Restrictions/Add. Instructions Additional Instructions/Restrictions: *Monitor Temp, Over the counter Motrin or Tylenol as directed/as needed Tylenol every 4 hours and Motrin every 6 hours (as long as your family doctor has told you that you can take it) for fever or pain. and straight to ER if unable to lower temp less than 101.0 after medication given *Warm salt water gargles may help to soothe the throat *Throat Lozenges? *Warm fluids like tea with honey may help to soothe the throat? *Sleep elevated *Humidifier/Vaporizer *Flonase 2 sprays in each nostril daily but be aware that it may take 2-3 days before you notice improvement *Bromfed may cause drowsiness. Know how it effects you (your child) before driving, caring for small child, or sending your child to school. Not other antihistamines/allergy medications while taking bromfed Your throat swab was sent for culture. Those results are typically sent to your primary care. Be sure to follow up in 2-3 days with your family doctor/primary care physician if no improvement so they can review those result and treat if necessary. If you don?t have a primary care doctor, I recommend you get one but in the mean time, you will have to return to a walk in clinic Follow up IMMEDIATELY for new or worsening symptoms or no Noticeable improvement over the next 48-72 hours. 911 for difficulty breathing or swallowing Clinical Impressions Clinical Impression: Sinusitis Qualifiers: Sinusitis location: unspecified location Chronicity: unspecified Qualified Code(s): J32.9 - Chronic sinusitis, unspecified Instructions Patient Instructions: DI for Sinusitis, Sinusitis Discharge ED Provider: Ml Oneill [facility] [place] HPI General Stated complaint: congestion, cough, sore throat Mode of Arrival: Ambulatory Source of Information: Patient Limitations: No Limitations Time Seen by Provider: 01/13/23 11:43 Description of Symptoms (Recalled from Triage Doc. by RN): PATIENT C/O SORE THROAT, COUGH, CONGESTION AND SINUS PRESSURE/DRAINAGE X 2 DAYS HEENT Symptoms (Recalled from RN notes): Yes Resp Symptoms (Recalled from RN notes): Yes Skin Symptoms (Recalled from RN notes): No MS Symptoms (Recalled from RN notes): No Functional Status (Recalled from RN notes): WNL History of Present Illness Provider Complaint: Patient states that she started about a week ago with sinus congestion, scratchy throat and got worse over the last couple of days States that she has had worsening of her sore throat and sinus pressure feels like it is draining in the back of her throat 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 Related Data Home Medications Medication Instructions Recorded Confirmed etonogestrel 68 mg subdermal 1 implant subdermal ONCE 03/29/21 01/13/23 implant (Nexplanon) Previous Rx's Medication Instructions Recorded azithromycin 250 mg tablet See Rx Instructions PO .COMPLEX 5 01/13/23 (Zithromax Z-Asntos) days #6 tabs Allergies Allergy/AdvReac Type Severity Reaction Status Date / Time No Known Allergies Allergy Verified 11/12/22 15:25 Worker's Comp Is this a Worker's Comp case?: No [facility] Disclaimer: The information contained in this section may have been updated after the patient was seen, as this information can be updated by other users. Medical History (Updated 01/13/23 @ 11:53 by Ml Oneill APRN) Abnormal EKG Daytime somnolence Decrease
[2023-01-13 12:04] VITALS: BP 106/55; PULSE 93; RESP 20; TEMP 36.7; O2SAT 98
== END 2023-01-13 12:05 | disposition home or self-care (01) ==
PROVIDERS: Emergency Provider Nurse Practitioner; PCP Family Medicine
DX: J01.90 Acute sinusitis, unspecified (principal); R05.9 Cough, unspecified; R07.0 Pain in throat
CPT/HCPCS: 99212; 99214; G0463

== ENCOUNTER 2023-05-23 16:54 | Emergency (ER) | payer OTHER, SELFPAY ==
[2023-05-23 17:00] VITALS: BP 127/64; PULSE 75; RESP 20; TEMP 36.8; O2SAT 99; BMI 22.6
--- NOTE | 2023-05-23 17:16 | ED_ITS ---
Discharge Plan Disposition Patient Disposition: Home, Self-Care Condition: Good Prescriptions Prescriptions: New cefdinir 300 mg capsule 300 mg PO BID Qty: 20 0RF No Action Nexplanon 68 mg implant 1 implant SUBDERMAL ONCE azithromycin [Zithromax Z-Santos] 250 mg tablet See Rx Instructions .ROUTE .COMPLEX 5 Days Qty: 6 0RF Rx Instructions: For 250 mg dose pack: take 500 mg today (day 1), then 250 mg for 4 days (days 2-5) Referrals Follow up/Referrals: Martínez Alexis MD [Primary Care Provider] - See instructions Activity Restrictions/Add. Instructions Additional Instructions/Restrictions: *Increase fluids. Water not Soda or Tea *Start antibiotic immediately and be sure to take as ordered for the FULL length of time although you should start to see improvement over the next 48 hours Follow up immediately for worsening of symptoms, fever, chills, abdominal pain etc *Be SURE to follow up anytime for new or worsening symptoms with your family doctor. AND in 48 hours for urine culture results with your family doctor, if you do not have a doctor then you may call back to the [facility] for urine culture results and further treatment. We do recommend that you choose and establish care with a Primary Care Physician. ?AND follow up with them ?in 10-14 days to repeat UA to ensure infection is resolved and blood no longer present *Be sure to let your PCP know that we sent urine cultures from the [facility] so they can follow up to ensure that you area the on the correct antibiotic Call your doctor office and make appointment for 48 hours (2 days from today) ?to follow up and get the results of your urine culture and further treatment Clinical Impressions Clinical Impression: UTI (urinary tract infection) Instructions Patient Instructions: DI for Urinary Tract Infection (UTI), Urinary Tract Infection Discharge ED [place] [facility] [place] General Stated complaint: burning, pain with urination Time Seen by Provider: 05/23/23 17:16 History of Present Illness Provider Complaint: Patient states that she feels like she is getting a bad UTI States that she has been having some burning with urination and blood in urine at times States that she hasnt had any fever chills or body aches, Denies back pain at this time States that she has been having pressure with urination and burning like she gets with UTI Related Data Home Medications Medication Instructions Recorded Confirmed etonogestrel 68 mg subdermal 1 implant subdermal ONCE 03/29/21 01/13/23 implant (Nexplanon) Previous Rx's Medication Instructions Recorded azithromycin 250 mg tablet See Rx Instructions PO .COMPLEX 5 01/13/23 (Zithromax Z-Santos) days #6 tabs cefdinir 300 mg capsule 300 mg PO BID #20 caps 05/23/23 Allergies Allergy/AdvReac Type Severity Reaction Status Date / Time No Known Allergies Allergy Verified 11/12/22 15:25 [facility] Disclaimer: The information contained in this section may have been updated after the patient was seen, as this information can be updated by other users. Medical History (Updated 05/23/23 @ 17:22 by Ml Oneill APRN) Urinary tract infection Migraine Daytime somnolence Decreased stamina Abnormal EKG Palpitations Sinus tachycardia Dyspnea Surgical History (Updated 01/13/23 @ 11:37 by Hanny Shaw RN) History of section History of cholecystectomy History of appendectomy History of cardiac cath Social History Smoking Status: Never smoker alcohol intake: never substance use type: denies use current occupational status: other Travel in the last 8 weeks: None household members: significant other housing: house current occupation: self employed farming caffeine: No ROS Obtained: Yes All systems reviewed & no additional complaints except as documented and Yes Systems reviewed as appropriate & no additional complaints except as documented Constitutional Constitutional: Reports system reviewed and no additional complaints, except as documented, Reports as per HPI, Denies body ache, Denies chills, Denies fever(s) and Denies headache(s) ENT Ears, Nose, Mouth, and Throat: Denies headache(s) Cardiovascular Cardiovascular: Reports system reviewed and no additional complaints, except as documented and Reports as per HPI Respiratory Respiratory: Reports system reviewed and no additional complaints, except as documented and Reports as per HPI Gastrointestinal Gastrointestingal: Reports system reviewed and no additional complaints, except as documented and as per HPI; Denies abdominal pain Genitourinary Female Genitourinary: Reports system reviewed and no additional complaints, except as documented, Reports as per HPI, Reports dysuria, Reports hematuria and Reports urinary urgency Musculoskeletal Musculoskeletal: Reports system reviewed and no additional complaints, except as documented and Reports as per HPI Integumentary/Breasts Skin/Breast: Reports system reviewed and no additional complaints, except as documented and Reports as per HPI Neurologic Neurologic: Denies headache(s) Physical Exam General General appearance: alert and in no apparent distress ENT ENT exam: Present mucous membranes moist Respiratory Respiratory exam: Present normal lung sounds bilaterally; Absent respiratory distress or wheezes Cardiovascular Cardiovascular exam: Present regular rate, normal rhythm and normal heart sounds Abdominal Exam Abdominal exam: Present soft and normal bowel sounds; Absent distention or tenderness Neurological Exam Neurological exam: Present alert, oriented X3 and normal gait Medical Decision Making Parker Inquiry Pt receiving controlled substance: No Parker was queried for this patient: No Lab Data Lab results reviewed: Yes I reviewed the patient's lab results. Orders (Tests/Meds): ORDERS Category Date Time Status Urine Culture Stat Micro 05/23/23 17:00 Received Medical Decision Narrative: Patient states that she is , has UTI will treat with Cefdnir clarified safe for use during breast feeding
[2023-05-23 17:20] VITALS: BP 127/64; PULSE 75; RESP 18; TEMP 36.8; O2SAT 99
[2023-05-23 17:24] LABS: Apearance,Urine Clear (Clear); Bilirubin,Urine Negative (Negative); Blood, Urine 3+ (Negative); Color,Urine Yellow (Yellow); Glucose,Urine (UA) Negative (Negative); Ketones,Urine Negative (Negative); PH,Urine 5.5 (5.0-8.5); Protein,Urine Negative (Negative); Specific Gravity, Urine 1.005 (1.005-1.030); UTC Leukocyte Esterase,Urine 2+ (Negative); UTC Nitrate,Urine Negative (Negative); Urobilinogen,Urine 0.2 EU/dl (0.2)
== END 2023-05-23 17:25 | disposition home or self-care (01) ==
PROVIDERS: Emergency Provider Nurse Practitioner; PCP Family Medicine
DX: N39.0 Urinary tract infection, site not specified (principal); R31.9 Hematuria, unspecified
CPT/HCPCS: 81003; 87086; 99212; 99214; G0463

== ENCOUNTER 2024-02-06 12:30 | Emergency (ER) | payer OTHER, SELFPAY ==
--- NOTE | 2024-02-06 13:19 | EXP.UTC ---
Discharge Plan Disposition Patient Disposition: Home, Self-Care Condition: Good Prescriptions Prescriptions: New azithromycin [Zithromax] 250 mg tablet 250 mg PO UD DOSE PK Qty: 6 0RF Rx Instructions: Take two (2) tablets today, then one (1) tablet days #2 thru #5 No Action Nexplanon 68 mg implant 1 implant SUBDERMAL ONCE Referrals Follow up/Referrals: Martínez Alexis MD [Primary Care Provider] - See instructions Activity Restrictions/Add. Instructions Additional Instructions/Restrictions: Drink plenty of fluids. Take tylenol or ibuprofen for pain or fever. Take the medications as directed. Follow up with your regular doctor. GO TO THE ER FOR ANY WORSENING SYMPTOMS Clinical Impressions Clinical Impression: Sinusitis Instructions Patient Instructions: Sinusitis, DI for Sinusitis Print Language Print Language: Slovak Discharge ED Provider: Owen Riley [facility] [place] General Stated complaint: headache, pressure, drainage, cough Time Seen by Provider: 02/06/24 13:19 Related Data Home Medications ?Medication ?Instructions ?Recorded ?Confirmed etonogestrel 68 mg subdermal 1 implant subdermal ONCE 03/29/21 02/06/24 implant (Nexplanon) Previous Rx's ?Medication ?Instructions ?Recorded azithromycin 250 mg tablet 250 mg PO UD DOSE PK #6 tabs 02/06/24 (Zithromax) Allergies Allergy/AdvReac Type Severity Reaction Status Date / Time No Known Allergies Allergy Verified 11/12/22 15:25 [facility] Disclaimer: The information contained in this section may have been updated after the patient was seen, as this information can be updated by other users. Medical History (Updated 02/06/24 @ 14:16 by Owen Riley APRN) Urinary tract infection Migraine Daytime somnolence Decreased stamina Abnormal EKG Palpitations Sinus tachycardia Dyspnea Surgical History (Updated 01/13/23 @ 11:37 by Hanny Shaw RN) History of section History of cholecystectomy History of appendectomy History of cardiac cath Social History Smoking Status: Never smoker alcohol intake: never substance use type: denies use current occupational status: other Travel in the last 8 weeks: None household members: significant other housing: house current occupation: self employed farming caffeine: No ROS Obtained: Yes All systems reviewed & no additional complaints except as documented Constitutional Constitutional: Reports poor appetite Eyes Eyes: Reports system reviewed and no additional complaints, except as documented ENT Ears, Nose, Mouth, and Throat: Reports as per HPI Cardiovascular Cardiovascular: Reports system reviewed and no additional complaints, except as documented and Denies chest pain Respiratory Respiratory: Denies shortness of breath, Denies chest congestion, Reports cough, Denies stridor and Denies wheezing Gastrointestinal Gastrointestingal: Reports system reviewed and no additional complaints, except as documented; Denies abdominal pain, diarrhea or vomiting Musculoskeletal Musculoskeletal: Reports system reviewed and no additional complaints, except as documented and Denies arthralgias Integumentary/Breasts Skin/Breast: Reports system reviewed and no additional complaints, except as documented and Denies rash Neurologic Neurologic: Denies paresthesias Allergic/Immunologic Allergic/Immunologic: Denies wheezing Physical Exam General General appearance: alert and in no apparent distress Eye Eye exam: Present normal appearance, PERRL and EOMI ENT ENT exam: Present mucous membranes moist and normal external ear exam Expanded ENT Exam External ear exam: Present normal external inspection TM/Canal exam: Bilateral TM: erythema and bulging Nose exam: Absent sinus tenderness Nasal speculum exam: Bilateral: normal Mouth exam: Present normal external inspection; Absent drooling Teeth exam: Present normal inspection Throat exam: Present tonsillar erythema and tonsillomegaly Neck Neck exam: Present normal inspection, full ROM and trachea midline; Absent tenderness, lymphadenopathy or thyromegaly Chest Chest inspection: Present normal inspection and symmetric chest wall rise; Absent tenderness or rash Respiratory Respiratory exam: Present normal lung sounds bilaterally; Absent respiratory distress, wheezes, stridor or accessory muscle use Cardiovascular Cardiovascular exam: Present regular rate, normal rhythm and normal heart sounds Abdominal Exam Abdominal exam: Present soft; Absent distention, tenderness, guarding, rebound or rigidity Extremities Exam Extremities exam: Present normal inspection, full ROM and normal capillary refill; Absent tenderness or calf tenderness Back Exam Back exam: Present normal inspection and full ROM; Absent tenderness Neurological Exam Neurological exam: Present alert and oriented X3 Psychiatric Psychiatric exam: Present normal affect and normal mood Skin Skin exam: Present warm, dry, intact and normal color Lymphatic Lymphatic Findings: no adenopathy Medical Decision Making Medical Records Medical records reviewed: No I reviewed the patient's medical records. Screening: Per USPSTF and CDC recommendations, given the prevalence of disease in our region, it is our hospital?s policy to screen for HIV and viral Hepatitis for all patients aged 18 and over and those with ongoing risk factors. Parker Inquiry Pt receiving controlled substance: No
[2024-02-06 13:20] VITALS: BP 103/63; PULSE 85; RESP 16; TEMP 36.8; O2SAT 98; BMI 23.9
[2024-02-06 13:30] LABS: UTC Strep Screen (Rapid) Negative (Negative)
[2024-02-06 14:18] VITALS: BP 103/63; PULSE 85; RESP 16; TEMP 36.8; O2SAT 98
== END 2024-02-06 14:20 | disposition home or self-care (01) ==
PROVIDERS: Emergency Provider Nurse Practitioner Family; PCP Family Medicine
DX: J32.9 Chronic sinusitis, unspecified (principal); R51.9 Headache, unspecified; R05.9 Cough, unspecified; R09.81 Nasal congestion; R63.8 Other symptoms and signs concerning food and fluid intake
CPT/HCPCS: 87880; 99212; G0381

== ENCOUNTER 2024-05-30 14:32 | Outpatient (CLI) | payer OTHER, SELFPAY ==
--- NOTE | 2024-05-30 14:35 | XR_ITS ---
FINAL REPORT CLINICAL HISTORY: pain in right ribs with coughing COMPARISON: None FINDINGS: RIGHT RIBS WITH CHEST Chest: A single view of the chest was obtained. The heart is normal in size. There is an Amplatzer device in the right heart. The mediastinum is normal. The lungs are clear. There is no pneumothorax. Ribs: Three views demonstrate no acute displaced fracture. The visualized bony structures are well aligned. IMPRESSION: No acute process. No obvious rib fracture. Reviewed, Interpreted and Dictated by Evan Mar MD Transcribed by Alysha Cardoso Authenticated and [facility]
== END 2024-05-30 23:59 | disposition home or self-care (01) ==
LOC: RAD 14:33
PROVIDERS: PCP Family Medicine; Visit Provider Nurse Practitioner
DX: R07.81 Pleurodynia (principal)
CPT/HCPCS: 71101